=== PATIENT | female | born 1985 ===

== ENCOUNTER 2024-12-23 14:41 | Outpatient (BNV) | payer SELFPAY | END 2024-12-31 10:33 | PROVIDERS: Admitting Provider Psychiatry & Neurology Psychiatry; Visit Provider Internal Medicine Cardiovascular Disease | DX: Z13.6 Encounter for screening for cardiovascular disorders (principal) | CPT/HCPCS: 93010 ==

== ENCOUNTER 2024-12-23 14:41 | Inpatient (IN) | payer SELFPAY ==
--- OUTSIDE RECORDS SUMMARY | 2024-05-05 11:15 | XMS_ITS ---
Author Organization [facility] Address [address] [place] [phone] Care Team Providers Care Filter Tank Tender Helper Head Name Role Phone Zaria Pires MD Primary Care Provider Unavailab le nurse, nurse Unavailable Unavailable REASON FOR VISIT CONVERTED Encounters Encounter Location Date Provider Diagnosis [facility] [address] [phone] 05/05/2024 nurse nurse Plan Of Treatment Next Appt Details Provider Name:JUNI Mitchell, 01/12/2025 02:30:00 PM, [address] [place] [address], [place], [place], [phone], Progress Notes * Neli HELMSRayOB:1985 ( 39 yo F)Acc No.[id number]:05/05/2024 Progress Notes Patient: Boubacar DOVE Provider: Brittani manrique Nurse :1985 A ge:38 Y S ex:Female Date:05/05/2024 Address:[address], [place] Pcp:Zaria Pires MD Subjective: * Chief Complaints: * 1 . CONVERTED. * Medical History: Objective: * Vitals: Assessment: Plan: * Treatment: * Images: * Electronic signature of sheri sun nurse on 12/23/2024 at 06:37 PM EDT Sign off status: Pending * Provider: Brittani manrique Nurse Date: 0 05/05/2024 Generated for Faith tee/Antonio/Marisabel on: 1 06:37 PM EDT
--- OUTSIDE RECORDS SUMMARY | 2024-06-15 11:15 | XMS_ITS ---
Author Organization [facility] Address [address] [place] [phone] Care Team Providers Care Mold Capper Name Role Phone Zaria Pires MD Primary Care Provider Unavailab le nurse, nurse Unavailable Unavailable REASON FOR VISIT CONVERTED Encounters Encounter Location Date Provider Diagnosis [facility] [address] [phone] 06/15/2024 nurse nurse Plan Of Treatment Next Appt Details Provider Name:JUNI Mitchell, 01/12/2025 02:30:00 PM, [address] [place] [address], [place], [place], [phone], Progress Notes * Neli HELMSRayOB:1985 ( 39 yo F)Acc No.[id number]:06/15/2024 Progress Notes Patient: Boubacar DOVE Provider: Brittani manrique Nurse :1985 A ge:38 Y S ex:Female Date:06/15/2024 Address:[address], [place] Pcp:Zaria Pires MD Subjective: * Chief Complaints: * 1 . CONVERTED. * Medical History: Objective: * Vitals: Assessment: Plan: * Treatment: * Images: * Electronic signature of sheri sun nurse on 12/23/2024 at 06:36 PM EDT Sign off status: Pending * Provider: Brittani manrique Nurse Date: 0 06/15/2024 Generated for Faith tee/Antonio/Marisabel on: 1 06:36 PM EDT
--- OUTSIDE RECORDS SUMMARY | 2024-07-20 11:15 | XMS_ITS ---
Author Organization [facility] Address [address] [place] [phone] Care Team Providers Care Pouncer Name Role Phone Zaria Pires MD Primary Care Provider Unavailab le nurse, nurse Unavailable Unavailable REASON FOR VISIT CONVERTED Encounters Encounter Location Date Provider Diagnosis [facility] [address] [phone] 07/20/2024 nurse nurse Plan Of Treatment Next Appt Details Provider Name:JUNI Mitchell, 01/12/2025 02:30:00 PM, [address] [place] [address], [place], [place], [phone], Progress Notes * Neli HELMSRayOB:1985 ( 39 yo F)Acc No.[id number]:07/20/2024 Progress Notes Patient: Boubacar DOVE Provider: Brittani manrique Nurse :1985 A ge:38 Y S ex:Female Date:07/20/2024 Address:[address], [place] Pcp:Zaria Pires MD Subjective: * Chief Complaints: * 1 . CONVERTED. * Medical History: Objective: * Vitals: Assessment: Plan: * Treatment: * Images: * Electronic signature of sheri sun nurse on 12/23/2024 at 06:35 PM EDT Sign off status: Pending * Provider: Brittani manrique Nurse Date: 0 07/20/2024 Generated for Faith tee/Antonio/Marisabel on: 1 06:35 PM EDT
--- OUTSIDE RECORDS SUMMARY | 2024-07-26 06:30 | XMS_ITS ---
Author Organization [facility] [address] [place] [address] [address] Address [address] [place] [phone] Care Team Providers Care Family Development Extension Specialist Name Role Phone Pranay BASS, Zaria Primary Care Provider Unavailab remigio Calderon NP, Jessica Unavailable [phone] Nay [employer] HEAD INSPECTOR AND ADJUSTER, Rowena Unavailable Unavailable REASON FOR VISIT pt will cb to r/s Social History Sex Assigned At : Social History Observation Description Sex Assigned At Female Encounters Encounter Location Date Provider Diagnosis [facility] [address] [place] [address] [place] [phone] 07/26/2024 Jessica Calderon NP Plan Of Treatment Next Appt Details Provider Name:Jessica carpio NP, 01/11/2025 08:00:00 AM, [address] [place] [address], [phone], Progress Notes * YNES HELMS SCDOB: 7 (39 yo F)Acc No.[id number]:07/26/2024 Patient: KATHERIN DOVEN HI Provider: Nanci Calderon NP :1985 A ge:38 Y S ex:Female Date:07/26/2024 Address:[address] [place] [phone] Pcp:Zaria Pires MD Subjective: * Chief Complaints: * 1 . Pt will cb to r/s. * Medical History: Objective: * Vitals: Assessment: Plan: * Treatment: * Billing Information: * Visit Code: * Procedure Codes: * Electronic signature of Del Calderon NP , [id number] on 12/23/2024 at 06:35 PM EDT Sign off status: Pending * Provider: Nanci Calderon NP Date: 0 07/26/2024 Generated for Faith tee/Antonio/Marisabel on: 1 06:35 PM EDT
--- OUTSIDE RECORDS SUMMARY | 2024-10-13 10:45 | XMS_ITS ---
Author Organization [facility] Address [address] [place] [phone] Care Team Providers Care Foam Fabricator Name Role Phone Zaria Pires MD Primary Care Provider Unavailab le nurse, nurse Unavailable Unavailable REASON FOR VISIT CONVERTED Encounters Encounter Location Date Provider Diagnosis [facility] [address] [phone] 10/13/2024 nurse nurse Plan Of Treatment Next Appt Details Provider Name:JUNI Mitchell, 01/12/2025 02:30:00 PM, [address] [place] [address], [place], [place], [phone], Progress Notes * Neli HELMSRayOB:1985 ( 39 yo F)Acc No.[id number]:10/13/2024 Progress Notes Patient: Boubacar DOVE Provider: Brittani manrique Nurse :1985 A ge:39 Y S ex:Female Date:10/13/2024 Address:[address], [place] Pcp:Zaria Pires MD Subjective: * Chief Complaints: * 1 . CONVERTED. * Medical History: Objective: * Vitals: Assessment: Plan: * Treatment: * Images: * Electronic signature of sheri sun nurse on 12/23/2024 at 06:36 PM EDT Sign off status: Pending * Provider: Brittani manrique Nurse Date: 0 10/13/2024 Generated for Faith tee/Antonio/Marisabel on: 1 06:36 PM EDT
--- OUTSIDE RECORDS SUMMARY | 2024-12-22 18:11 | XMS_ITS | Encounter Summary ---
Author Organization [facility] ystem Address [address] [place] [address] Phone Care Team Providers Care Drawer In Dobby Loom Name Role Phone Zaria Pires MD Primary Care Provider [phone] Reason for Visit * Reason Comments Psychiatric Evaluation * Auth/Cert (Routine) Specialty Diagnoses / Procedures Referred By Contac t Referred To Contact Diagnoses Hallucinations Psychosis, unspecified psychosis type (CMS/HCC) Referral ID Status Reason Start Date Expiration Date Visits Re quested Visits Authorized [id number] 1 1 Encounter Details Date Type Department Care Team (Latest Contact Info) Description 12/22/2024 6:11 PM EDT - 12/23/2024 12:49 PM EDT Hospital Encounter [facility] - Emergency Department [address] [place] [address] Chcio Nova DO [address] [place], [place] [phone] Juanito Brown MD [address] [place], [place] [phone] Ambrosio Arreaga MD [address] [facility] [address] [place], [place] [phone] Hallucinations (Primary Dx); Encounter for medical screening examination; Psychosis, unspecified psychosis type (CMS/HCC) [F29]; Schizoaffective disorder, bipolar type (CMS/HCC) Discharge Disposition: Home with Behavioral Health Services Social History Tobacco Use Types Packs/Day Years Used Date Smoking Tobacco: Every Day Cigarettes Smokeless Tobacco: Never Comments Unknown Sex and Gender Information Value Date Recorded Sex Assigned at Female 09/06/2022 3:36 PM EDT Legal Sex Female 9:32 AM EDT Gender Identity Female 09/06/2022 3:36 PM EDT Sexual Orientation Lesbian 09/06/2022 3: 36 PM EDT documented as of this encounter Last Filed Vital Signs Vital Sign Reading Time Taken Comments Blood Pressure 135/83 12/23/2024 11:13 AM EDT Pulse 98 12/23/2024 11:13 AM EDT Temperature 37.1 C (98.8 F) 12/23/2024 11:13 AM EDT Respiratory Rate 16 12/23/2024 11:1 3 AM EDT Oxygen Saturation 99% 12/23/2024 10: 05 AM EDT Inhaled Oxygen Concentration - - Weight 122.9 kg (270 lb 14.4 oz) 12/22/2024 5:49 PM EDT Height - - Body Mass Index 38.87 06/29/2024 8:21 PM EDT documented in this encounter Functional Status * Are you deaf or do you have serious difficulty hearing? Answer Date of Assessment Author No 03/10/2024 5:59 PM EST Mychart, Generic * Are you blind or do you have serious difficulty seeing, even when wearing glasses? Answer Date of Assessment Author No 03/10/2024 5:59 PM EST Mychart, Generic * Do you have serious difficulty walking or climbing stairs? Answer Date of Assessment Author No 03/10/2024 5:59 PM EST Mychart, Generic * Do you have serious difficulty dressing or bathing? Answer Date of Assessment Author No 03/10/2024 5:59 PM EST Mychart, Generic * Because of a physical, mental, or emotional condition, do you have serious difficulty doing errandsalone such as visiting the doctor? Answer Date of Assessment Author No 03/10/2024 5:59 PM EST Mychart, Generic * Calculated C-SSRS Risk Score (Lifetime/Recent) Answer Date of Assessment Author Moderate Risk 12/22/2024 9:51 PM EDT Bessie Mckeon, MONIQUE * Suicidal Ideation Question Answer Date of Assessment Author 1. Wish to be (Lifetime) Yes 12/22/2024 9:51 PM EDT Bessie Mckeon, ACID BLOWER 2. Non-Specific Active Suicidal Thoughts (Lifetime) Yes 12/22/2024 9:51 PM EDT Bessie Mckeon, ACID BLOWER 3. Active Suicidal Ideation with any Methods (Not Plan) Without Intent to Act (Lifetime) Yes 12/22/2024 9:51 PM EDT Deandra Mckeon, ACID BLOWER 4. Active Suicidal Ideation with Some Intent to Act, Without Specific Plan (Lifetime) Yes 12/22/2024 9:51 PM EDT Deandra Mckeon, ACID BLOWER 5. Active Suicidal Ideation with Specific Plan and Intent (Lifetime) Yes 12/22/2024 9:51 PM EDT Deandra Mckeon, ACID BLOWER 1. Wish to be (Past 1 Month) No 12/22/2024 9:51 PM EDT Deandra Mckeon, ACID BLOWER 2. Non-Specific Active Suicidal Thoughts (Past 1 Month) No 12/22/2024 9:51 PM EDT Deandra Mckeon, ACID BLOWER 3. Active Suicidal Ideation with any Methods (Not Plan) Without Intent to Act (Past 1 Month) No 12/22/2024 9:51 PM EDT Deandra Mckeon, ACID BLOWER 4. Active Suicidal Ideation with Some Intent to Act, Without Specific Plan (Past 1 Month) No 12/22/2024 9:51 PM EDT Deandra Mckeon, ACID BLOWER 5. Active Suicidal Ideation with Specific Plan and Intent (Past 1 Month) No 12/22/2024 9:51 PM EDT Deandra Mckeon, ACID BLOWER * Intensity of Ideation Question Answer Date of Assessment Author Most Severe Ideation Rating (Lifetime) 5 12/22/2024 9:51 PM EDT Rafita Mckeonie, ACID BLOWER Frequency (Lifetime) 4 12/22/2024 9:51 PM E DT HitesheBessie, ACID BLOWER Duration (Lifetime) 5 12/22/2024 9:51 PM ED T Pinatye, Kristenandree, ACID BLOWER Controllability (Lifetime) 3 12/22/2024 9:5 1 PM EDT PinatyeRafitaie, ACID BLOWER Deterrents (Lifetime) 4 12/22/2024 9:51 PM EDT Pinatye, Kristenandree, ACID BLOWER Reasons for Ideation (Lifetime) 4 9:51 PM EDT PiBessie garibay, ACID BLOWER Description of Most Severe Ideation (Past 1 Month) denies SI 12/22/2024 9:51 PM EDT Pinatye, Krjimmyenshajiie, ACID BLOWER Deterrents (Past 1 Month) 0 12/22/2024 9:51 PM EDT PinatyeBessie, ACID BLOWER Reasons for Ideation (Past 1 Month) 0 12/22/2024 9:51 PM EDT PiBessie garibay, ACID BLOWER * Suicidal Behavior Question Answer Date of Assessment Author Actual Attempt (Lifetime) Yes 12/22/2024 9:51 PM EDT Bessie Mckeon, ACID BLOWER Has subject engaged in non-suicidal self-injurious behavior? (Lifetime) Yes 12/22/2024 9:51 PM EDT Bo Mckeone, ACID BLOWER Interrupted Attempts (Lifetime) No 12/22/2024 9:51 PM EDT Deandra Mckeon, ACID BLOWER Aborted or Self-Interrupted Attempt (Lifetime) No 12/22/2024 9:51 PM EDT Deandra Mckeon, ACID BLOWER Preparatory Acts or Behavior (Lifetime) No 12/22/2024 9:51 PM EDT HitesheDeandra, ACID BLOWER Actual Attempt (Past 3 Months) No 12/22/2024 9:51 PM EDT Bessie Mckeon, ACID BLOWER Has subject engaged in non-suicidal self-injurious behavior? (Past 3 Months) No 12/22/2024 9:51 PM EDT Ángel Mckeon MSW documented as of this encounter Mental Status * Because of a physical, mental, or emotional condition, do you have serious difficulty concentrating, remembering, or making decisions? Answer Entry Date Author No 03/10/2024 5:59 PM EST Beant, Generic documented in this encounter Discharge Summaries * Paulina Moncada CNP - 12/23/2024 11:49 AM EDT Psychiatric Observation Discharge Summary Patient Name: Ynes Marvin Date of : 1985 Date of Service: 12/23/2024 Length of Service: 12/22/2024 - 12/23/2024 Final Diagnoses: Problem List[1] CURRENT DIAGNOSIS: Schizoaffective Disorder Problem List[2] REASON FOR ADMISSION TO [facility]: Schizoaffective disorder HOSPITAL COURSE Admitted to Psychiatric Observation Service for management of schizoaffective disorder Continued home medications Limited improvement in symptoms Psychosis continued throughout hospitalization continue to recommend inpatient psychiatric placement, Joyce has found placement at [facility] where patient will be transferred to for ongoing care. DISCHARGE MEDICATIONS Current Medications[3] MENTAL STATUS UPON DISCHARGE Physical Exam: Musculoskeletal: moves all extremities; no abnormal movements Gait: gait not assessed EPS: none MSE: Appearance: well groomed and appropriately dressed Behavior: cooperative, eye contact good, and pleasant Psychomotor Activity: normal Speech: regular rate, regular rhythm, and regular volume Mood: neutral Affect: flat Thought Process: linear Thought Content: no delusions and no obsessions Suicidal Ideation: no suicidal ideation Homicidal Ideation: no homicidal ideation Perceptions/Experiences: auditory hallucinations Insight: limited Judgement: limited Cognitive Exam: Orientation: oriented X3 and alert Memory: intact Attention/Concentration: fair Fund of Knowledge: average Language: fluent Capacity: Cannot leave AMA Health Care Proxy: not invoked ROS Constitutional: No fever, no weight loss Musculoskeletal: NO EPS Positive: auditory hallucinations Negative for: headache, sore throat, chest pain, dizziness, blurred vision, fatigue, joint pain, constipation, skin itchiness, dysuria, cough, SOB, vomiting, diarrhea, nausea, abdominal pain. CONDITION AT DISCHARGE Continues with psychosis Impaired insight/judgement at risk of harming self or others DISPOSITION Requires Psychiatric Inpatient level of Care POST-DISCHARGE PLAN: Admit to [facility] Accepting Physician - Dr. 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), inattentive type Psychosis, unspecified psychosis type (CMS/HCC) [3] Current Facility-Administered Medications: nortriptyline (PAMELOR) capsule 100 mg, 100 mg, Oral, Nightly, Dunia De La Cruz CNP, 100 mg at 12/22/242110 spironolactone (ALDACTONE) tablet 100 mg, 100 mg, Oral, Daily, Dunia De La Cruz CNP, 100 mg at 12/23/24834 cloNIDine (CATAPRES) tablet 0.1 mg, 0.1 mg, Oral, TID, Dunia De La Cruz CNP, 0.1 mg at 12/23/24834 gabapentin (NEURONTIN) capsule 400 mg, 400 mg, Oral, TID, Dunia De La Cruz CNP, 400 mg at 12/23/24834 doxepin (SINEquan) capsule 25 mg, 25 mg, Oral, Nightly, Dunia De La Cruz CNP, 25 mg at 12/22/242109 haloperidol (HALDOL) tablet 5 mg, 5 mg, Oral, TID, Dunia De La Cruz CNP, 5 mg at 12/23/24834 perphenazine tablet 16 mg, 16 mg, Oral, BID, Dunia De La Cruz CNP, 16 mg at 12/23/24834 clonazePAM (KlonoPIN) tablet 1 mg, 1 mg, Oral, BID PRN, Dunia De La Cruz CNP melatonin tablet 3 mg, 3 mg, Oral, Nightly PRN, Dunia De La Cruz CNP OLANZapine (ZYPREXA) tablet 5 mg, 5 mg, Oral, q6h PRN, Dunia De La Cruz CNP Current Outpatient Medications: hydrOXYzine (VISTARIL) 50 MG capsule, Take 50 mg by mouth three times a day as needed, Disp: , Rfl: clonazePAM (KlonoPIN) 1 MG tablet, Take 1 mg by mouth two times a day as needed for anxiety, Disp: , Rfl: doxepin (SINEquan) 25 MG capsule, Take 25 mg by mouth nightly, Disp: , Rfl: haloperidol (HALDOL) 5 MG tablet, Take 5 mg by mouth three times a day, Disp: , Rfl: perphenazine 16 MG tablet, Take 16 mg by mouth two times a day, Disp: , Rfl: cloNIDine (CATAPRES) 0.1 MG tablet, Take 0.1 mg by mouth three times a day, Disp: , Rfl: gabapentin (NEURONTIN) 400 MG capsule, Take 400 mg by mouth three times a day, Disp: , Rfl: levocetirizine (XYZAL) 5 MG tablet, Take 10 mg by mouth every evening, Disp: , Rfl: nortriptyline (PAMELOR) 50 MG capsule, Take 100 mg by mouth nightly, Disp: , Rfl: spironolactone (ALDACTONE) 100 MG tablet, Take 100 mg by mouth daily, Disp: , Rfl: perphenazine 8 MG tablet, Take 8 mg by mouth, Disp: , Rfl: lamoTRIgine (LaMICtal) 25 MG tablet, Take 50 mg by mouth daily, Disp: , Rfl: perphenazine 4 MG tablet, Take 4 mg by mouth two times a day, Disp: , Rfl: lamoTRIgine (LaMICtal) 200 MG tablet, Take 200 mg by mouth nightly, Disp: , Rfl: fremanezumab-vfrm (AJOVY) 225 MG/1.5ML solution prefilled syringe injection, Inject 225 mg under the skin, Disp: , Rfl: documented in this encounter Discharge Instructions * Discharge Instructions* Chico Nova, - 12/22/2024 6:52 PM EDT <<THIS PATIENT IS ON ED OBSERVATION. IF DISCHARGED SELECT DISCHARGE FROM OBSERVATION OPTIONBELOW AND DELETE THIS TEXT>> documented in this encounter Medications at Time of Discharge perphenazine 8 MG tablet Take 8 mg by mouth clonazePAM (KlonoPIN) 1 MG tablet Take 1 mg by mouth two times a day as needed for anxiety doxepin (SINEquan) 25 MG capsule Take 25 mg by mouth nightly 04/02/2024 haloperidol (HALDOL) 5 MG tablet Take 5 mg by mouth three times a day 04/02/2024 perphenazine 16 MG tablet Take 16 mg by mouth two times a day perphenazine 4 MG tablet Take 4 mg by mouth two times a day cloNIDine (CATAPRES) 0.1 MG tablet Take 0.1 mg by mouth three times a day 03/04/2024 gabapentin (NEURONTIN) 400 MG capsule Take 400 mg by mouth three times a day nortriptyline (PAMELOR) 50 MG capsule Take 100 mg by mouth nightly 03/15/2020 spironolactone (ALDACTONE) 100 MG tablet Take 100 mg by mouth daily 08/15/2021 fremanezumab-vfrm (AJOVY) 225 MG/1.5ML solution prefilled syringe injection Inject 225 mg under the skin 12/13/2020 documented as of this encounter Progress Notes * Paulina Moncada CNP - 12/23/2024 7:30 AM EDT PSYCH OBSERVATION PROGRESS NOTE Patient Name: Ynes Marvin Date of : 1985 Date of Service: 12/23/2024 Time of Service: 7:30 AM Time spent: 32 minutes CURRENT DIAGNOSIS Schizoaffective Disorder Bipolar Type CC: I have my usual voice and others that are yelling. Brief history: The patient is a 39 y.o. female with a psychiatric history of charted schizoaffective disorder, cannabis use disorder, PTSD who presented on 12/22/2024 to the Emergency Department withworsening auditory and visual hallucinations. At this time Nicholase are involved in the treatment planning for this patient. To review on interview patient was calm and cooperative, thought process was linear and organized, and did not appear to be responding to internal stimuli. She reports that within this last week she lost her job insurance and was previously on long-term disability, and since switching insurances the cost is very expensive. She notes that this insurance switch has limited her contact with her providers and increasing her stress. She reports worsening visual hallucinations of people killing each other as well as garbled auditory hallucinations. She notes that 1 voice chronically has told her tocut herself but she is scaled at coping with this voice and not engaging in self-harm. Reports the last time she cut herself was in May which spear headed and inpatient admission at [facility], reports during this last decompensation, she was having command auditory hallucinations to kill other people. She denies present self-harm urges, suicidal ideation, nor thoughts to harm others, but reports her largest stressor is the disturbing visual hallucinations that are causing her to feel more paranoid. She concomitantly expresses worsening depressive symptoms including pervasive low mood, hypersomnia, hypophagia, and worsening fatigue throughout the day. She reports her last suicide attempt was at age 19 and has been able to use coping skills to maintain safety. She states she met with her outpatient therapist today, and in the setting of feeling worsening perceptual disturbances, decided she would get an emergency eval and prepare for inpatient hospitalization to evaluate med changesthat may help. She endorses daily cannabis use, smoking several times daily, reports this helps with perceptual disturbances and does not contribute negatively to her paranoia. She endorses daily medication adherence. 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 Expressed amenability to inpatient hospitalization for stabilization. Would like to resumehome meds while in the ED. 12/23/2024 The patient is seen laying in bed this morning. They are calm cooperative and pleasant. Patient reports sleeping okay last night. Patient denies current suicidal or homicidal ideation, although does report presence of auditory hallucinations. Describes hearing the voice they have had since March that tells patient to cut themself as well as other voices yelling. Patient denies wanting to act onthese thoughts currently. Advised of ongoing inpatient psychiatric bed search. The patient reports tolerating her psychiatric medications well denying any EPS or oversedation. Plan to continue to monitor patient psychiatric treatment needs while pending placement. CURRENT MEDICATIONS: Current Medications[1] CURRENT LABS: Recent Results (from the past 24 hours) Urine drugs of abuse screen Collection Time: 12/22/24 6:40 PM Result Value Ref Range Amphetamines, Urine Screen None Detected None Detected Barbiturates, Urine Screen None Detected None Detected Benzodiazepines, Urine Screen Positive (A) None Detected Cocaine, Urine Screen None Detected None Detected Opiates, Urine Screen None Detected None Detected Cannabinoids (THC), Urine Screen Positive (A) None Detected Tricyclic Antidepressants, Urine Screen Positive (A) None Detected Fentanyl, Urine Screen None Detected None Detected Methadone, Urine Screen None Detected None Detected Oxycodone, Urine Screen None Detected None Detected Buprenorphine, Urine Screen None Detected None Detected Phencyclidine, Urine Screen None Detected None Detected COVID-19 ([facility]) Collection Time: 12/22/24 6:41 PM Specimen: Nasopharynx; Swab Result Value Ref Range COVID-19 ([facility]) PCR Negative Negative Acetaminophen level Collection Time: 12/22/24 6:45 PM Result Value Ref Range Acetaminophen Level <5.1 <15.0 ug/mL CBC with auto differential Collection Time: 12/22/24 6:45 PM Result Value Ref Range WBC 15.5 (H) 4.5 - 10.8 10*3 ??l RBC 4.51 4.20 - 5.40 10*6 ??l Hemoglobin 15.0 12.0 - 16.0 g/dL Hematocrit 44.0 36.0 - 48.0 % MCV 98 81 - 99 fL MCH 33.3 25.4 - 39.0 pg MCHC 34.1 31.0 - 37.0 g/dL RDW 12.7 11.5 - 14.5 % Platelets 332 150 - 450 10*3 ??l MPV 8.6 7.0 - 11.0 fL Neutrophils % 72.1 40.0 - 80.0 % Lymphocytes % 20.1 20.0 - 40.0 % Monocytes % 6.4 2.0 - 10.0 % Eosinophils % 0.6 (L) 1.0 - 6.0 % Basophils % 0.2 0.0 - 1.0 % Immature Granulocyte % 0.6 0.0 - 0.9 % Neutrophils Absolute 11.20 (H) 2.00 - 7.00 K/mm3 Absolute Immature Granulocyte 0.09 0.00 - 0.09 K/mm3 Lymphocytes Absolute 3.12 (H) 1.00 - 3.00 K/mm3 Monocytes Absolute 1.00 0.20 - 1.00 K/mm3 Eosinophils Absolute 0.09 0.00 - 0.50 K/mm3 Basophils Absolute 0.03 0.00 - 0.10 K/mm3 Comprehensive metabolic panel Collection Time: 12/22/24 6:45 PM Result Value Ref Range Glucose 104 (H) 70 - 100 mg/dL BUN 7 6 - 19 mg/dL Creatinine 1.0 0.4 - 1.2 mg/dL eGFR >60.00 >60.00 mL/min/1.73m*2 Sodium 137 135 - 145 mmol/L Potassium 3.9 3.4 - 5.1 mmol/L Chloride 99 98 - 109 mmol/L CO2 23 22 - 29 mmol/L Anion Gap 15 6 - 16 mmol/L Calcium 8.9 8.5 - 10.5 mg/dL Total Bilirubin 0.2 0.2 - 1.2 mg/dL Alkaline Phosphatase 51 35 - 104 U/L ALT (SGPT) 40 (H) 0 - 31 U/L AST 22 0 - 32 U/L Total Protein 7.5 6.0 - 8.5 g/dL Albumin 4.0 3.3 - 5.2 g/dL Corrected Calcium 8.9 8.5 - 10.5 mg/dL Estimated Creatinine Clearance 108.7 mL/min Ethanol Collection Time: 12/22/24 6:45 PM Result Value Ref Range Ethanol <=10 0 - 10 mg/dL Salicylate level Collection Time: 12/22/24 6:45 PM Result Value Ref Range Salicylate Level <=3.0 3.0 - 30.0 mg/dL Valproic Acid Level, Total Collection Time: 12/22/24 6:45 PM Result Value Ref Range Valproic Acid, Total 47 (L) 50 - 100 ug/mL CURRENT MENTAL STATUS Physical Exam: Musculoskeletal: moves all extremities; no abnormal movements Gait: gait not assessed EPS: none MSE: Appearance: well groomed and appropriately dressed Behavior: cooperative, eye contact good, and pleasant Psychomotor Activity: normal Speech: regular rate, regular rhythm, and regular volume Mood: neutral Affect: flat Thought Process: linear Thought Content: no delusions and no obsessions Suicidal Ideation: no suicidal ideation Homicidal Ideation: no homicidal ideation Perceptions/Experiences: auditory hallucinations Insight: limited Judgement: limited Cognitive Exam: Orientation: oriented X3 and alert Memory: intact Attention/Concentration: fair Fund of Knowledge: average Language: fluent Capacity: Cannot leave AMA Health Care Proxy: not invoked ROS Constitutional: No fever, no weight loss Musculoskeletal: NO EPS Positive: auditory hallucinations Negative for: headache, sore throat, chest pain, dizziness, blurred vision, fatigue, joint pain, constipation, skin itchiness, dysuria, cough, SOB, vomiting, diarrhea, nausea, abdominal pain. TREATMENT RE-ASSESSMENT Reassessment demonstrates ongoing reports of auditory hallucinations although patient denies presence of suicidal or homicidal ideation at this time. The patient reports tolerating medications without EPS or oversedation. PRN medications used with positive response. Will continue to monitor ongoingpatient treatment needs. PLAN Continue with Psychiatric Observation admission Continue current medications Cariprazine 3 mg daily Clonazepam 1 mg twice daily Clonidine 0.1 mg 3 times a day as needed Depakote ER 750 mg nightly Gabapentin 400 mg 3 times daily Doxepin 25 mg nightly Haldol 5 mg 3 times daily Hydroxyzine 50 mg nightly Nortriptyline 100 mg nightly Perphenazine 16 mg twice a day HOLD Adderall PRN's: Hydroxyzine 25 mg 3 times a day as needed Contact family and outpatient providers as needed for treatment and disposition planning Paulina Moncada CNP 12/23/2024 7:30 AM [1] Current Facility-Administered Medications: nortriptyline (PAMELOR) capsule 100 mg, 100 mg, Oral, Nightly, Dunia De La Cruz CNP, 100 mg at 12/22/242110 spironolactone (ALDACTONE) tablet 100 mg, 100 mg, Oral, Daily, Dunia De La Cruz CNP cloNIDine (CATAPRES) tablet 0.1 mg, 0.1 mg, Oral, TID, Dunia De La Cruz CNP, 0.1 mg at 12/22/242110 gabapentin (NEURONTIN) capsule 400 mg, 400 mg, Oral, TID, Dunia De La Cruz CNP, 400 mg at 12/22/242109 doxepin (SINEquan) capsule 25 mg, 25 mg, Oral, Nightly, Dunia De La Cruz CNP, 25 mg at 12/22/242109 haloperidol (HALDOL) tablet 5 mg, 5 mg, Oral, TID, Dunia De La Cruz CNP, 5 mg at 12/22/242110 perphenazine tablet 16 mg, 16 mg, Oral, BID, Dunia De La Cruz CNP, 16 mg at 12/22/242110 clonazePAM (KlonoPIN) tablet 1 mg, 1 mg, Oral, BID PRN, Dunia De La Cruz CNP melatonin tablet 3 mg, 3 mg, Oral, Nightly PRN, Dunia De La Cruz CNP OLANZapine (ZYPREXA) tablet 5 mg, 5 mg, Oral, q6h PRN, Dunia De La Cruz CNP Current Outpatient Medications: hydrOXYzine (VISTARIL) 50 MG capsule, Take 50 mg by mouth three times a day as needed, Disp: , Rfl: clonazePAM (KlonoPIN) 1 MG tablet, Take 1 mg by mouth two times a day as needed for anxiety, Disp: , Rfl: doxepin (SINEquan) 25 MG capsule, Take 25 mg by mouth nightly, Disp: , Rfl: haloperidol (HALDOL) 5 MG tablet, Take 5 mg by mouth three times a day, Disp: , Rfl: perphenazine 16 MG tablet, Take 16 mg by mouth two times a day, Disp: , Rfl: cloNIDine (CATAPRES) 0.1 MG tablet, Take 0.1 mg by mouth three times a day, Disp: , Rfl: gabapentin (NEURONTIN) 400 MG capsule, Take 400 mg by mouth three times a day, Disp: , Rfl: levocetirizine (XYZAL) 5 MG tablet, Take 10 mg by mouth every evening, Disp: , Rfl: nortriptyline (PAMELOR) 50 MG capsule, Take 100 mg by mouth nightly, Disp: , Rfl: spironolactone (ALDACTONE) 100 MG tablet, Take 100 mg by mouth daily, Disp: , Rfl: perphenazine 8 MG tablet, Take 8 mg by mouth, Disp: , Rfl: lamoTRIgine (LaMICtal) 25 MG tablet, Take 50 mg by mouth daily, Disp: , Rfl: perphenazine 4 MG tablet, Take 4 mg by mouth two times a day, Disp: , Rfl: lamoTRIgine (LaMICtal) 200 MG tablet, Take 200 mg by mouth nightly, Disp: , Rfl: fremanezumab-vfrm (AJOVY) 225 MG/1.5ML solution prefilled syringe injection, Inject 225 mg under the skin, Disp: , Rfl: documented in this encounter H&P Notes * Duina De La Cruz CNP - 12/22/2024 7:40 PM EDT PSYCHIATRIC OBSERVATION ADMISSION H&P REASON FOR CONSULT A psychiatric consult was placed by Dr. Nova for evaluation of a patient with worsening perceptual disturbances and paranoia. The patient's record was reviewed, patient was interviewed, and clinical staff were consulted to complete this comprehensive psychiatric consultation. Patient Name: Ynes Marvin Date of : 1985 Date of Service: 12/22/2024 Time of Service: 7:40 PM Length of Service: 75 minutes Source of information: Patient, Family, Staff collateral CHIEF COMPLAINT: My visual hallucinations have gotten gorey and very disturbing. HISTORY OF PRESENT ILLNESS The patient is a 39 y.o. female with a psychiatric history of charted schizoaffective disorder, cannabis use disorder, PTSD who presented on 12/22/2024 to the Emergency Department with worsening auditory and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 If yes, please explain: Was a Safety Plan completed or updated during the course of this intervention? (R) No If no, please explain: unable to safety plan due to worsening hallucinations. Diagnosis Type Mental Health Only (R): Yes Substance Use Disorder Only (R): No Dual Diagnosis (R): No Comments: Is this person diagnosed with Autism Spectrum Disorder? (R): No Was a Doc to Doc performed? (R): No Was this an Opiod overdose? (R): No Is this a SUDE (Substance Use Disorder Evaluation)? No Was there an SHANTA Peer or FP participating in the intervention? (R): No Who initiated FP intervention? (R): Identified Needs and Goals for Treatment Safety and stabilization 2. Outpatient treatment 3. Medication management Additional Recommendations Additional Recommendations: Outpatient Mental Health Provider and Partial Hospitalization If other, please explain: Disposition Details Information gathered from:Person Served, Hospital Staff, and Other If other, please explain: Medical Clearance Requested (R): Yes Medical Clearance Requested by (R): SHANTA/CBL If other, please explain: Medical Clearance Provided (R): Yes Medical Clearance Provided Where? (R): ED If other, please explain: Clinical Consult done with: Isi DOW Current Safety Assessment: Unable to plan for safety If other, please explain: Inital Disposition: Inpatient Psychiatric General For Acute Care Time (R): Psychiatric Consult Began Date (R): Time (R): Psychiatric Intervention Began Date (R): Time (R): Intervention Began Time (R) Telehealth: NA Diagnosis: F29 unspecified psychosis Consult Note [1] Allergies Allergen Reactions Sulfa Antibiotics Hives, Swelling and Other (see comments) Avocado Azithromycin Banana Other (see comments) Other reaction(s): Other (See Comments) Celexa [Citalopram] Clindamycin Kiwi Extract Itching Latex Metronidazole Other reaction(s): stiff neck (aseptic meningitis) Nickel Tylenol [Acetaminophen] Wild Lettuce Extract (Lactuca Virosa) Diarrhea Sulfasalazine Rash hives hives hives [2] Social History Tobacco Use Smoking status: Every Day Current packs/day: 1.00 Types: Cigarettes Smokeless tobacco: Never Vaping Use Vaping status: Never Used Cosigned by Marleny Ruiz MS at 12/23/2024 9:19 AM EDT documented in this encounter ED Notes * Chico Nova, - 12/22/2024 6:50 PM EDT EMERGENCY DEPARTMENT ENCOUNTER CHIEF COMPLAINT Chief Complaint Patient presents with Psychiatric Evaluation HPI Ynes Marvin is a 39 y.o. female who presents on 12/22/2024 6:11 PM for evaluation of hallucinations. HPI provided by patient, states that she has a history of schizoaffective, chronic loose nationsare been more bothersome as of late. She states that she has been compliant with her medication regimen. Denies any drug or alcohol use outside of cannabis. Otherwise no recent illness or somatic complaints. States that she is not homicidal or suicidal. She is seeking inpatient stabilization. PAST MEDICAL HISTORY Past Medical History: Diagnosis Date Bipolar 1 disorder ([facility]) Schizo affective schizophrenia ([facility]) Schizophrenia, paranoid ([facility]) 03/10/2024 Schizophrenia, unspecified ([facility]) 06/26/2023 SURGICAL HISTORY Surgical History[1] CURRENT MEDICATIONS Medications Ordered Prior to Encounter[2] ALLERGIES Allergies[3] FAMILY HISTORY No family history on file. SOCIAL HISTORY Social History[4] REVIEW OF SYSTEMS All other systems reviewed and negative except as per history of present illness. PHYSICAL EXAM Vital Signs: BP 119/72 (BP Location: Left arm, Patient Position: Sitting) Pulse (!) 119 Temp 97.5 ??F (36.4 ??C) (Temporal) Resp 20 Wt 122.9 kg (270 lb 14.4 oz) SpO2 97% BMI 38.87 kg/m?? Constitutional: no painful distress HENT: Normocephalic, Atraumatic, Bilateral external ears normal, Oropharynx moist. Neck: No tenderness, No JVD. Eyes: PERRL, EOMI, Conjunctiva normal Respiratory: No respiratory distress, LCTAB Cardiovascular: Normal heart rate, regular rhythm Abdominal: Soft,no tenderness Musculoskeletal: No edema, No deformities noted. Distal pulses 2+ Skin: Warm, Dry, No rash. Lymphatic: No lymphadenopathy noted. Neurological: Alert & awake, No focal deficits noted, Gait: Steady Psychiatric: Appropriate for situation, age and time LABS: Recent Results (from the past 24 hours) Acetaminophen level Collection Time: 12/22/24 6:45 PM Result Value Ref Range Acetaminophen Level <5.1 <15.0 ug/mL CBC with auto differential Collection Time: 12/22/24 6:45 PM Result Value Ref Range WBC 15.5 (H) 4.5 - 10.8 10*3 ??l RBC 4.51 4.20 - 5.40 10*6 ??l Hemoglobin 15.0 12.0 - 16.0 g/dL Hematocrit 44.0 36.0 - 48.0 % MCV 98 81 - 99 fL MCH 33.3 25.4 - 39.0 pg MCHC 34.1 31.0 - 37.0 g/dL RDW 12.7 11.5 - 14.5 % Platelets 332 150 - 450 10*3 ??l MPV 8.6 7.0 - 11.0 fL Neutrophils % 72.1 40.0 - 80.0 % Lymphocytes % 20.1 20.0 - 40.0 % Monocytes % 6.4 2.0 - 10.0 % Eosinophils % 0.6 (L) 1.0 - 6.0 % Basophils % 0.2 0.0 - 1.0 % Immature Granulocyte % 0.6 0.0 - 0.9 % Neutrophils Absolute 11.20 (H) 2.00 - 7.00 K/mm3 Absolute Immature Granulocyte 0.09 0.00 - 0.09 K/mm3 Lymphocytes Absolute 3.12 (H) 1.00 - 3.00 K/mm3 Monocytes Absolute 1.00 0.20 - 1.00 K/mm3 Eosinophils Absolute 0.09 0.00 - 0.50 K/mm3 Basophils Absolute 0.03 0.00 - 0.10 K/mm3 Comprehensive metabolic panel Collection Time: 12/22/24 6:45 PM Result Value Ref Range Glucose 104 (H) 70 - 100 mg/dL BUN 7 6 - 19 mg/dL Creatinine 1.0 0.4 - 1.2 mg/dL eGFR >60.00 >60.00 mL/min/1.73m*2 Sodium 137 135 - 145 mmol/L Potassium 3.9 3.4 - 5.1 mmol/L Chloride 99 98 - 109 mmol/L CO2 23 22 - 29 mmol/L Anion Gap 15 6 - 16 mmol/L Calcium 8.9 8.5 - 10.5 mg/dL Total Bilirubin 0.2 0.2 - 1.2 mg/dL Alkaline Phosphatase 51 35 - 104 U/L ALT (SGPT) 40 (H) 0 - 31 U/L AST 22 0 - 32 U/L Total Protein 7.5 6.0 - 8.5 g/dL Albumin 4.0 3.3 - 5.2 g/dL Corrected Calcium 8.9 8.5 - 10.5 mg/dL Estimated Creatinine Clearance 108.7 mL/min Ethanol Collection Time: 12/22/24 6:45 PM Result Value Ref Range Ethanol <=10 0 - 10 mg/dL Salicylate level Collection Time: 12/22/24 6:45 PM Result Value Ref Range Salicylate Level <=3.0 3.0 - 30.0 mg/dL Valproic Acid Level, Total Collection Time: 12/22/24 6:45 PM Result Value Ref Range Valproic Acid, Total 47 (L) 50 - 100 ug/mL ED COURSE & MEDICAL DECISION MAKING Ynes Marvin is a 39 y.o. female who presents to the ED with worsening hallucinations, acute on chronic. ED and nursing records reviewed. Additional pertinent available records reviewed: Last seen 06/29/2024 secondary to paranoid delusion. On initial presentation exam notable for cooperative, atraumatic Differential includes but not limited to decompensated thought and/or mood disorder, intoxication, withdrawal syndrome, occult infection, electrolyte abnormalities. Initial plan for lab work, urinalysis, evening medications, crisis team eval and reassess. This patient is escalated to observation status on Service Date: 12/22/2024 at Service Time: 6:51 PM . Observation is necessary for ongoing evaluation of hallucinations. Discussion of management with physician, qualified health professional, and/or appropriate source: [facility] Escalation of care to admission or observation considered: Although not medically indicated Consideration of treatments or testing, not performed: None Chronic Conditions affecting care include: As above Social Determinants of Health significantly affecting the care and disposition of this patient include: None Lab work reassuring, signed out to my colleague at change of shift pending crisis team eval.n Basedon my history and exam, patient has an emergency psychiatric condition that requires care coordination by crisis team for potential inpatient level of care. Patient is pending mental health evaluation at the time of this dictation and their history, diagnostics and physical exam demonstrate that they are medically stable for psychiatric confinement if needed. FINAL IMPRESSION 1. Hallucinations 2. Encounter for medical screening examination DISPOSITION Pending crisis team eval CONDITION Stable Electronically signed by: CHICO NOVA DO, 12/22/2024 6:50 PM This Emergency Department patient encounter note was created using voice- recognition software and in real time during the ED visit. Please excuse any typographical errors that have not been edited out. Note to patient: The 21st century cures act makes medical notes like these available to patients inthe interest of transparency. However, be advised this is a medical document. It is intended primarily as [id number] communication. It is written in medical language and may contain abbreviations or verbiage that are unfamiliar. It may appear blunt or direct. This is because medical documents areintended to carry relevant information, facts as evident, and the clinical opinion of the practitioner only as of the time of writing. [1] No past surgical history on file. [2] No current facility-administered medications on file prior to encounter. Current Outpatient Medications on File Prior to Encounter Medication Sig Dispense Refill hydrOXYzine (VISTARIL) 50 MG capsule Take 50 mg by mouth three times a day as needed perphenazine 8 MG tablet Take 8 mg by mouth clonazePAM (KlonoPIN) 1 MG tablet Take 1 mg by mouth daily as needed for anxiety doxepin (SINEquan) 25 MG capsule Take 25 mg by mouth nightly haloperidol (HALDOL) 5 MG tablet Take 1 tablet by mouth daily as needed lamoTRIgine (LaMICtal) 25 MG tablet Take 50 mg by mouth daily perphenazine 16 MG tablet Take 16 mg by mouth two times a day perphenazine 4 MG tablet Take 4 mg by mouth two times a day cloNIDine (CATAPRES) 0.1 MG tablet Take 0.1 mg by mouth three times a day gabapentin (NEURONTIN) 400 MG capsule Take 400 mg by mouth three times a day lamoTRIgine (LaMICtal) 200 MG tablet Take 200 mg by mouth nightly levocetirizine (XYZAL) 5 MG tablet Take 10 mg by mouth every evening nortriptyline (PAMELOR) 50 MG capsule Take 100 mg by mouth nightly spironolactone (ALDACTONE) 100 MG tablet Take 100 mg by mouth daily fremanezumab-vfrm (AJOVY) 225 MG/1.5ML solution prefilled syringe injection Inject 225 mg under theskin [3] Allergies Allergen Reactions Sulfa Antibiotics Hives, Swelling and Other (see comments) Avocado Azithromycin Banana Other (see comments) Other reaction(s): Other (See Comments) Celexa [Citalopram] Clindamycin Kiwi Extract Itching Latex Metronidazole Other reaction(s): stiff neck (aseptic meningitis) Nickel Tylenol [Acetaminophen] Wild Lettuce Extract (Lactuca Virosa) Diarrhea Sulfasalazine Rash hives hives hives [4] Social History Socioeconomic History Marital status: Tobacco Use Smoking status: Every Day Current packs/day: 1.00 Types: Cigarettes Smokeless tobacco: Never Vaping Use Vaping status: Never Used Substance and Sexual Activity Sexual activity: Defer Social Drivers of Health Food Insecurity: Low Risk (10/07/2023) Received from [employer] Food Insecurity Within the past 12 months, you worried that your food would run out before you got money to buy more:: Never True Within the past 12 months,the food you bought just didn't last and you didn't have enough money to get more: : Never True Transportation Needs: Low Risk (10/07/2023) Received from [employer] Transportation In the past 12 months, has lack of transportation kept you from medical appts, meetings, work or from getting things needed for daily living? : No Housing Stability: Low Risk (10/07/2023) Received from [employer] Housing Stability What is your housing situation today?: I have housing Think about the place you live. Do you have problems with any of the following? : None of the above Chico Nova DO 12/22/241922 * Jeniffer Wiley RN - 12/22/2024 5:50 PM EDT Ynes Marvin is a 39 y.o. female presenting with Psychiatric Evaluation Pt is schizophrenic and states she is hearing voices and seeing things, denies SI/HI documented in this encounter Miscellaneous Notes * Behavioral Health - Monica Etienne MSW - 12/23/2024 10:17 AM EDT Accepted to [facility] [address] * Behavioral Health - Bessie Mckeon MSW - 12/22/2024 8:22 PM EDT Pt asked to be referred to [facility] if possible as has gone there in the past. If a bed can not be found there she also asked for [facility]. Pt is aware of the bed search process but, didrequest no HBM. documented in this encounter Plan of Treatment Pending Results Name Type Priority Associated Diagnoses Date /Time ECG x1 ECG STAT 12/23/2024 8:5 7 AM EDT Scheduled Orders Name Type Priority Associated Diagnoses Orde r Schedule ECG ECG STAT Once for 1 Occ urrences starting 12/23/2024 until 12/23/2024 ECG ECG STAT Once for 1 Occ urrences starting 12/23/2024 until 12/23/2024 documented as of this encounter Procedures Procedure Name Priority Date/Time Associated Diagnosis Comments ECG 12-LEAD STAT 12/23/2024 8:57 AM EDT CBC WITH AUTO DIFFERENTIAL STAT 12/22/2024 6:45 PM EDT ETHANOL STAT 12/22/2024 6:45 PM EDT ACETAMINOPHEN LEVEL STAT 12/22/2024 6 :45 PM EDT SALICYLATE LEVEL STAT 12/22/2024 6:45 PM EDT VALPROIC ACID LEVEL, TOTAL STAT Add-on 12/22/2024 6:45 PM EDT COMPREHENSIVE METABOLIC PANEL STAT 12/22/2024 6:45 PM EDT COVID-19 ([facility]) STAT 12/22/2024 6:41 PM EDT URINE DRUGS OF ABUSE SCREEN STAT 12/22/2024 6:40 PM EDT documented in this encounter Results * (ABNORMAL) Valproic Acid Level, Total (12/22/2024 6:45 PM EDT) Valproic Acid, Total 47(L) 50 - 100 ug/mL 12/22/2024 7:19 PM EDT [facility] Blood Venous blood / Unknown Venipuncture / Unknown 12/22/2024 6:45 PM EDT 12/22/2024 6:51 PM EDT Chico Nova DO LAB BLOOD ORDERABLES Fi nal Result Performing Organization Address City/[facility]/ZIP Co de Phone Number [facility] [address] [place] [address], [place] [phone] * Salicylate level (12/22/2024 6:45 PM EDT) Salicylate Level <=3.0 3.0 - 30.0 mg/dL 12/22/2024 7:19 PM EDT [facility] Blood Venous blood / Unknown Venipuncture / Unknown 12/22/2024 6:45 PM EDT 12/22/2024 6:51 PM EDT Chico Nova DO LAB BLOOD ORDERABLES Fi nal Result Performing Organization Address [facility]/ZIP Co de Phone Number [facility] [address] [place] [address], [place] [phone] * Ethanol (12/22/2024 6:45 PM EDT) Ethanol <=10 0 - 10 mg/dL 12/22/2024 7:19 PM EDT [facility] Comment:NONE DETECTED: Resul t <10 should be interpreted as NONE DETECTED. Blood Venous blood / Unknown Venipuncture / Unknown 12/22/2024 6:45 PM EDT 12/22/2024 6:51 PM EDT us Chico Nova DO LAB BLOOD ORDERABLES Fi nal Result Performing Organization Address City/[facility]/ZIP Co de Phone Number [facility] [address] [place] [address], [place] [phone] * (ABNORMAL) Comprehensive metabolic panel (12/22/2024 6:45 PM EDT) Glucose 104(H) 70 - 100 mg/dL 12/22/2024 7:22 PM [facility] BUN 7 6 - 19 mg/dL 12/22/2024 7:22 PM [facility] Creatinine 1.0 0.4 - 1.2 mg/dL 12/22/2024 7:22 PM [facility] eGFR >60.00 >60.00 mL/min/1.7 3m*2 12/22/2024 7:22 PM [facility] Sodium 137 135 - 145 mmol/L 12/22/2024 7:22 PM [facility] Potassium 3.9 3.4 - 5.1 mmol/L 12/22/2024 7:22 PM [facility] Chloride 99 98 - 109 mmol/L 12/22/2024 7:22 PM [facility] CO2 23 22 - 29 mmol/L 12/22/2024 7:22 PM [facility] Anion Gap 15 6 - 16 mmol/L 12/22/2024 7:22 PM [facility] Calcium 8.9 8.5 - 10.5 mg/dL 12/22/2024 7:22 PM [facility] Total Bilirubin 0.2 0.2 - 1.2 mg/dL 12/22/2024 7:22 PM [facility] Alkaline Phosphatase 51 35 - 104 U/L 12/22/2024 7:22 PM [facility] ALT (SGPT) 40(H) 0 - 31 U/L 12/22/2024 7:22 PM [facility] AST 22 0 - 32 U/L 12/22/2024 7:22 PM [facility] Total Protein 7.5 6.0 - 8.5 g/dL 12/22/2024 7:22 PM [facility] Albumin 4.0 3.3 - 5.2 g/dL 12/22/2024 7:22 PM [facility] Corrected Calcium 8.9 8.5 - 10.5 mg/dL 12/22/2024 7:22 PM [facility] Estimated Creatinine Clearance 108.7 mL/min 12/22/2024 7:22 PM [facility] Blood Venous blood / Unknown Venipuncture / Unknown 12/22/2024 6:45 PM EDT 12/22/2024 6:51 PM EDT us Chico Nova DO LAB BLOOD ORDERABLES Fi nal Result [facility] [address] [place] [address], [place] [phone] * (ABNORMAL) CBC with auto differential (12/22/2024 6:45 PM EDT) WBC 15.5(H) 4.5 - 10.8 10*3 l 12/22/2024 6:59 PM EDT [facility] RBC 4.51 4.20 - 5.40 10*6 l 12/22/2024 6:59 PM EDT [facility] Hemoglobin 15.0 12.0 - 16.0 g/dL 12/22/2024 6:59 PM EDT [facility] Hematocrit 44.0 36.0 - 48.0 % 12/22/2024 6:59 PM EDT [facility] MCV 98 81 - 99 fL 12/22/2024 6:59 PM EDT [facility] MCH 33.3 25.4 - 39.0 pg 12/22/2024 6:59 PM EDT [facility] MCHC 34.1 31.0 - 37.0 g/dL 12/22/2024 6:59 PM EDT [facility] RDW 12.7 11.5 - 14.5 % 12/22/2024 6:59 PM EDT [facility] Platelets 332 150 - 450 10*3 l 12/22/2024 6:59 PM EDT [facility] MPV 8.6 7.0 - 11.0 fL 12/22/2024 6:59 PM EDT [facility] Neutrophils % 72.1 40.0 - 80.0 % 12/22/2024 6:59 PM EDT [facility] Lymphocytes % 20.1 20.0 - 40.0 % 12/22/2024 6:59 PM EDT [facility] Monocytes % 6.4 2.0 - 10.0 % 12/22/2024 6:59 PM EDT [facility] Eosinophils % 0.6(L) 1.0 - 6.0 % 12/22/2024 6:59 PM EDT [facility] Basophils % 0.2 0.0 - 1.0 % 12/22/2024 6:59 PM EDT [facility] Immature Granulocyte % 0.6 0.0 - 0.9 % 12/22/2024 6:59 PM EDT [facility] Neutrophils Absolute 11.20(H) 2.00 - 7.00 K/mm3 12/22/2024 6:59 PM EDT [facility] Absolute Immature Granulocyte 0.09 0.00 - 0.09 K/mm3 12/22/2024 6:59 PM EDT [facility] Lymphocytes Absolute 3.12(H) 1.00 - 3.00 K/mm3 12/22/2024 6:59 PM EDT [facility] Monocytes Absolute 1.00 0.20 - 1.00 K/mm3 12/22/2024 6:59 PM EDT [facility] Eosinophils Absolute 0.09 0.00 - 0.50 K/mm3 12/22/2024 6:59 PM EDT [facility] Basophils Absolute 0.03 0.00 - 0.10 K/mm3 12/22/2024 6:59 PM EDT [facility] Blood Venous blood / Unknown Venipuncture / Unknown 12/22/2024 6:45 PM EDT 12/22/2024 6:51 PM EDT Chico Nova DO LAB BLOOD ORDERABLES Fi nal Result [facility] [address] [place] [address], * Acetaminophen level (12/22/2024 6:45 PM EDT) Acetaminophen Level <5.1 <15.0 ug/mL 12/22/2024 7:19 PM EDT [facility] Blood Venous blood / Unknown Venipuncture / Unknown 12/22/2024 6:45 PM EDT 12/22/2024 6:51 PM EDT Chico Nova DO LAB BLOOD ORDERABLES Fi nal Result [facility] [address] [place] [address], [place] [phone] * COVID-19 ([facility]) (12/22/2024 6:41 PM EDT) [place] [id number] ([facility]) PCR Negative Negative LTT PANTHER ANALYZER-DP H 12/22/2024 10:29 PM EDT [facility] Swab (Nasopharynx) Non-blood Collection / Unknown 12/22/2024 6:41 PM EDT 12/22/2024 6:50 PM EDT Chico Nova DO LAB MICROBIOLOGY - GENE RAL ORDERABLES Final Result Performing Organization Address City/[facility]/ZIP Co de Phone Number [facility] [address] [place] [address], [place] [phone] * (ABNORMAL) Urine drugs of abuse screen (12/22/2024 6:40 PM EDT) [facility] Amphetamines, Urine Screen None Detected None Detected 12/22/2024 8:48 PM EDT [facility] Barbiturates, Urine Screen None Detected None Detected 12/22/2024 8:48 PM EDT [facility] Benzodiazepines, Urine Screen Positive(A) None Detected 12/22/2024 8:48 PM EDT [facility] Cocaine, Urine Screen None Detected None Detected 12/22/2024 8:48 PM EDT [facility] Opiates, Urine Screen None Detected None Detected 12/22/2024 8:48 PM EDT [facility] Cannabinoids (THC), Urine Screen Positive(A) None Detected 12/22/2024 8:48 PM EDT [facility] Tricyclic Antidepressants, Urine Screen Positive(A) None Detected 12/22/2024 8:48 PM EDT [facility] Fentanyl, Urine Screen None Detected None Detected 12/22/2024 8:48 PM EDT [facility] Methadone, Urine Screen None Detected None Detected 12/22/2024 8:48 PM EDT [facility] Oxycodone, Urine Screen None Detected None Detected 12/22/2024 8:48 PM EDT [facility] Buprenorphine, Urine Screen None Detected None Detected 12/22/2024 8:48 PM EDT [facility] Phencyclidine, Urine Screen None Detected None Detected 12/22/2024 8:48 PM EDT [facility] Urine Urine specimen obtained by clean catch procedure / Unknown Non-blood Collection / Unknown 12/22/2024 6:40 PM EDT 12/22/2024 6:51 PM EDT Narrative [facility] - 12/22/2024 8:48 PM EDT This is a screening test for urine drugs of ABUSE only, performed using Milly Bibiana analyzer. It is not designed or intended to monitor treatment or assess patient compliance. Those purposes are best served by a specific assay for the specific drug being administered. Like any screening test, this drug screen has inherent limitations. A result of NONE DETECTED indicates the absence of the major metabolites of the tested drugs or their presence at a level below the cut-off concentration (see below). False negative results may be due to the pharmacokinetics of the drug and/or the timing of the sample relative to the use of the drug in question. A POSITIVE result is a presumptive qualitative positive which indicates that the major metabolites of the tested drugs are likely present at or above their cut- off concentration (see below). False positive results may be caused by cross-reacting substances. Unconfirmed positive results of this screening test must not be used for non- medical purposes. Cutoffs for Drug Classes: Amphetamines 1000 ng/mL Barbiturates 200 ng/mL Benzodiazepines 100 ng/mL Cocaine 300 ng/mL Opiates 300 ng/mL TCA 300 ng/mL THC 50 ng/mL Fentanyl 5 ng/mL Methadone 300 ng/ml Oxycodone 100 ng/ml Buprenorphine 5 ng/ml Phencyclidine 25 ng/ml us Chico Nova DO LAB URINE ORDERABLES Fi nal Result [facility] [facility] [address] [place] [address], [place] [phone] documented in this encounter Visit Diagnoses Diagnosis Schizoaffective disorder, bipolar type (CMS/HCC)- Primary Schizoaffective disorder, unspecified condition Hallucinations Encounter for medical screening examination Psychosis, unspecified psychosis type (CMS/HCC) [F29] Schizoaffective disorder, bipolar type (CMS/HCC) Schizoaffective disorder, unspecified condition Psychosis, unspecified psychosis type (CMS/HCC) Personality disorder, unspecified (CMS/HCC) NACHO (generalized anxiety disorder) Generalized anxiety disorder documented in this encounter Admitting Diagnoses Diagnosis Psychosis, unspecified psychosis type (CMS/HCC) documented in this encounter Administered Medications Inactive Administered Medications - up to 3 most recent administrations Medication Order MAR Action Action Date Dose Rate Site cloNIDine (CATAPRES) tablet 0.1 mg 0.1 mg, Oral, 3 times daily, First dose on Fri12/22/24 at 2100, Hold for SBP less than: 100 Given 12/23/2024 8:35 AM EDT 0.1 mg Given 12/22/2024 9:11 PM EDT 0.1 mg divalproex (DEPAKOTE) ER 24 hr tablet 750 mg 750 mg, Oral, Once, On Fri12/22/24 at 1850, For 1 dose, Hazardous Medication - Handle with gloves. Do not crush or split. Given 12/22/2024 9:10 PM EDT 750 mg doxepin (SINEquan) capsule 25 mg 25 mg, Oral, Nightly, First dose on Fri12/22/24 at 2100 Given 12/22/2024 9:10 PM EDT 25 mg gabapentin (NEURONTIN) capsule 400 mg 400 mg, Oral, 3 times daily, First dose on Fri12/22/24 at 2100 Given 12/23/2024 8:35 AM EDT 400 mg Given 12/22/2024 9:10 PM EDT 400 mg haloperidol (HALDOL) tablet 5 mg 5 mg, Oral, 3 times daily, First dose on Fri12/22/24 at 2100 Given 12/23/2024 8:35 AM EDT 5 mg Given 12/22/2024 9:11 PM EDT 5 mg hydrOXYzine (ATARAX) tablet 50 mg 50 mg, Oral, Once, On Fri12/22/24 at 1850, For 1 dose Given 12/22/2024 9:11 PM EDT 50 mg nortriptyline (PAMELOR) capsule 100 mg 100 mg, Oral, Nightly, First dose on Fri12/22/24 at 2099 Given 12/22/2024 9:11 PM EDT 100 mg perphenazine tablet 16 mg 16 mg, Oral, 2 times daily, First dose on Fri12/22/24 at 2100 Given 12/23/2024 8:35 AM EDT 16 mg Given 12/22/2024 9:11 PM EDT 16 mg spironolactone (ALDACTONE) tablet 100 mg 100 mg, Oral, Daily, First dose on [place] 12/23/24 at 0900, Hazardous Medication - Handle with gloves RN may NOT CRUSH or SPLIT dose; This must be done by Pharmacy. Given 12/23/2024 8:35 AM EDT 100 mg documented in this encounter Active and Recently Administered Medications Times are shown in EDT. Scheduled Medication Order 12/21/2024 12/22/2024 12/23/2024 cloNIDine (CATAPRES) tablet 0.1 mg 0.1 mg, Oral, 3 times daily, First dose on Fri12/22/24 at 2100, Hold for SBP less than: 100 2110 (Given - Provider: Daniel Angeles RN) 0835 (Given - Provider: Jessica Romero, RN) divalproex (DEPAKOTE) ER 24 hr tablet 750 mg (COMPLETED) 750 mg, Oral, Once, On Fri12/22/24 at 1850, For 1 dose, Hazardous Medication - Handle with gloves. Do not crush or split. 2109 (Given - Provider: Daniel Angeles RN) doxepin (SINEquan) capsule 25 mg 25 mg, Oral, Nightly, First dose on Fri12/22/24 at 2099 2109 (Given - Provider: Daniel Angeles, TENISHA) gabapentin (NEURONTIN) capsule 400 mg 400 mg, Oral, 3 times daily, First dose on Fri12/22/24 at 2099 2109 (Given - Provider: Daniel Angeles RN) 0835 (Given - Provider: Jessica Romero, RN) haloperidol (HALDOL) tablet 5 mg 5 mg, Oral, 3 times daily, First dose on Fri12/22/24 at 2099 2110 (Given - Provider: Daniel Angeles RN) 0835 (Given - Provider: Jessica Romero RN) hydrOXYzine (ATARAX) tablet 50 mg (COMPLETED) 50 mg, Oral, Once, On Fri12/22/24 at 1850, For 1 dose 2110 (Given - Provider: Daniel Angeles RN) nortriptyline (PAMELOR) capsule 100 mg 100 mg, Oral, Nightly, First dose on Fri12/22/24 at 2099 2110 (Given - Provider: Daniel Angeles RN) perphenazine tablet 16 mg 16 mg, Oral, 2 times daily, First dose on Fri12/22/24 at 2099 2110 (Given - Provider: Daniel Angeles RN) 0835 (Given - Provider: Jessica Romero RN) spironolactone (ALDACTONE) tablet 100 mg 100 mg, Oral, Daily, First dose on [place] 12/23/24 at 0900, Hazardous Medication - Handle with gloves RN may NOT CRUSH or SPLIT dose; This must be done by Pharmacy. 0835 (Given - Provid er: Jessica Romero RN) PRN Medication Order 12/21/2024 12/22/2024 12/23/2024 clonazePAM (KlonoPIN) tablet 1 mg 1 mg, Oral, 2 times daily PRN, anxiety, Starting on Fri12/22/24 at 2019, Hazardous Medication - Handle with gloves RN may NOT CRUSH or SPLIT dose; This must be done by Pharmacy. melatonin tablet 3 mg 3 mg, Oral, Nightly PRN, sleep, Starting on Fri12/22/24 at 2022 OLANZapine (ZYPREXA) tablet 5 mg 5 mg, Oral, Every 6 hours PRN, insomnia, Psychosis (hallucinations, delusions, or disorganized thinking/speech), Starting on Fri12/22/24 at 2022 documented in this encounter Additional Health Concerns Infection Onset Date Last Indicated Resolved Time Covid Possible 12/22/2024 12/22/2024 12/22/2024 10 :29 PM EDT documented as of this encounter Care Teams Drawer In Dobby Loom Relationship Specialty Start Date End Date Zaria Pires MD [address] [place] [id number] PCP - General Internal Medicine 02/08/24 documented as of this encounter
[2024-12-23 17:12] VITALS: BP 135/88; PULSE 80; RESP 16; TEMP 36.4; O2SAT 99; BMI 38.9
--- NOTE | 2024-12-23 18:34 | PC.ADMIT ---
Pt is a 39-y/o female w/ schizoaffective disorder and IBS who got admitted to [facility] from [facility] @ 14:00 for the treatment of schizophrenia & auditory hallucinations. Pt currently lives with family and self-presented after hearing voices and seeing hallucinations of people killing each other. Other recent stressors include pt losing her insurance and since then she has limited contact with her previous providers who she got along with in the past. Pt denies SI/HI however, she does chronically hear a voice telling her to kill herself and cut her wrists. 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 Pt also chronically sees visual hallucinations of people killing each other which is very stressful.? She reports hypersomnia, hypophagia, and worsening fatigue. Depression is 2/10 anxiety is 10/10. Last suicide attempt was at age 19. Denies alcohol use. Denies current nicotine use. States she only smokes weed. Has multiple allergies. Already vaccinated this season. UTOX (+) benzo, cannabinoids, tricyclic antidepressants
--- OUTSIDE RECORDS SUMMARY | 2024-12-23 18:35 | XMS_ITS | Clinical Summary ---
Author Organization [facility] Address [address] [place] [address] Phone Care Team Providers Care Lost And Found Clerk Name Role Phone Unavailable Primary Care Provider Unavailabl e Social History Tobacco Use Types Packs/Day Years Used Date Smoking Tobacco: Never Assessed Comments Unknown Sex and Gender Information Value Date Recorded Sex Assigned at Not on file Legal Sex Female 8:54 PM EDT Gender Identity Not on file Sexual Orientation Not on file Last Filed Vital Signs Vital Sign Reading Time Taken Comments Blood Pressure 124/81 06/15/2024 1:31 PM EDT Pulse 88 06/15/2024 1:31 PM EDT Temperature 36.5 C (97.7 F) 06/15/2024 1:03 PM EDT Respiratory Rate 18 06/15/2024 1:31 PM EDT Oxygen Saturation 97% 06/15/2024 1:31 PM EDT Inhaled Oxygen Concentration - - Weight 103 kg (227 lb) 06/10/2024 10:21 AM EDT Height 177.8 cm (5' 10 ) 06/10/2024 10:21 AM EDT Body Mass Index 32.57 06/10/2024 10:21 AM EDT Plan of Treatment Health Maintenance Due Date Last Done Comments Diabetes Screening 1986 HIV Lifetime Screening 1986 Hepatitis B Lifetime Screening 1986 Hepatitis C Antibody Lifetim e Screening 1986 LIPID PANEL 1986 THRIVE SCREENING 1986 Oral Health Screen 02/02/1987 HEIP Disability Screen 09/03/1991 BEHAVIORAL HEALTH SCREEN 1998 Psych Substance Use Screen 1998 Relationship Safety Screening 2001 DTAP/TDAP VACCINE (1 - Tdap) 2005 PAP SMEAR 09/03/2007 HPV VACCINES (1 - 3-dose SCD M series) 2013 COVID-19 Vaccine (2024-2 6 season) 2024 INFLUENZA VACCINE (#1) 2024 Zoster Vaccine (1 of 2) 2036 IPV VACCINES Aged Out No longer eligi ble based on patient's age to complete this topic MENINGOCOCCAL B Aged Out No longer el igible based on patient's age to complete this topic Pneumonia Vaccine 0-49 Years Aged Out No longer eligible based on patient's age to complete this topic ROTAVIRUS VACCINES Aged Out No longer eligible based on patient's age to complete this topic
--- OUTSIDE RECORDS SUMMARY | 2024-12-23 18:36 | XMS_ITS | Clinical Summary ---
Author Organization [facility]: [facility] Address [address] [place] [address] [address] [place] [address] Care Team Providers Care Medical Laboratory Manager Name Role Phone Shweta Al MD Primary Care Prov ider Allergies Active Allergy Reactions Criticality Noted Date Comments Augmentin Intolerance 11/13/2018 Diarrhea, Nausea, Yeast infection Celexa 05/10/2020 Seizure-like activity disorder Clindamycin Urticaria 08/31/2020 Latex 07/13/2020 Nickel Itching 08/24/2020 Sulfa Drugs 05/21/2017 hives Apra 05/21/2017 Hives, vomiting Azithromycin Dihydrate 05/21/2017 Joint swelling, rash Medications gabapentin (NEURONTIN) 300 MG Oral Cap Take 300 mg by mouth 4 TIMES A DAY. Active lamotrigine (LAMICTAL) 150 MG Oral TabIndications: 25 mg in morning, 150 at bedtime Take 150 mg by mouth TWICE A DAY. Active traZODone HCl (DESYREL) 100 MG Oral Tab Take 100 mg by mouth AT BEDTIME. Active nortriptyline (PAMELOR) 50 MG Oral Cap Take 50 mg by mouth AT BEDTIME. Active atomoxetine (STRATTERA) 40 MG Oral Cap Take 40 mg by mouth EVERY MORNING. Swallow whole. Do not open capsule. Active clonazePAM (KLONOPIN) 1 MG Oral Tab Take 1 mg by mouth TWICE A DAY. May cause dizziness/drow siness Active haloperidol (HALDOL) 5 MG Oral Tab Take 5 mg by mouth TWICE A DAY. Active Multiple Vitamin (MULTI VITAMIN DAILY PO) Active loratadine (CLARITIN) 1 mg/ml Active albuterol sulfate HFA 108 (90 Base) MCG/ACT Inhalation Aero Soln Inhale 2 Puffs EVERY 4 HOURS NEEDED. 9 Active spironolactone (ALDACTONE) 50 MG Oral Tab TAKE 1 TABLET BY MOUTH ONCE DAILY IF TOLETATED INCREASE TO 2 TABLETS BY MOUTH AFTER 1 MONTH Active Ibuprofen (ADVIL) 200 MG Oral Cap Take 200 mg by mouth EVERY 6 HOURS NEEDED for Pain. Take with food Active Active Problems No known active problems Social History Tobacco Use Types Packs/Day Years Used Date Smoking Tobacco: Every Day Cigarettes Smokeless Tobacco: Never Comments:e cigarette Alcohol Use Standard Drinks/Week Comments Yes 0 (1 standard drink = 0.6 oz pur e alcohol) rare Comments No Sex and Gender Information Value Date Recorded Sex Assigned at Not on file Legal Sex Female 11:10 AM EDT Gender Identity Not on file Sexual Orientation Not on file Last Filed Vital Signs Vital Sign Reading Time Taken Comments Blood Pressure 100/68 10/03/2020 6:57 PM EDT Pulse 111 10/03/2020 6:57 PM EDT Temperature 37 C (98.6 F) 10/03/2020 6:57 PM EDT Respiratory Rate 18 10/03/2020 6:57 PM EDT Oxygen Saturation 100% 10/03/2020 6:57 PM EDT Inhaled Oxygen Concentration - - Weight 113.4 kg (250 lb) 05/12/2020 9:06 PM EST Height 177.8 cm (5' 10 ) 05/12/2020 9:06 PM EST Body Mass Index 35.87 05/12/2020 9:06 PM EST Plan of Treatment Not on file Insurance [facility] HMO Care Teams Medical Laboratory Manager Relationship Specialty Start Date End Date Shweta Al MD [address] [place] [address] PCP - General Internal Medicine 07/14/20
--- OUTSIDE RECORDS SUMMARY | 2024-12-23 18:36 | XMS_ITS | Patient Health Record ---
Author Organization [id number] [facility] Address [address] [place], [place] [id number] Care Team Providers Care Audio Visual Project Manager Name Role Phone Shweta Mondragon Primary Care Provider Unavailabl e Reason For Referral No Information Plan Of Treatment No Information Insurance Providers Payer Name Payer Address Payer Phone Subscriber Number Group Number Insured Name Patient Relationship to Insured Coverage Start Date Coverage End Date [facility] [employer] CLAIM[employer] [address] [place], [place] [id number] Boubacar Marvin Self - patient is the insured 1 1
--- OUTSIDE RECORDS SUMMARY | 2024-12-23 18:36 | XMS_ITS | Clinical Summary ---
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 Power Brake Rebuilder Name Role Phone Zaria Pires MD Primary Care Provider [phone] Allergies Active Allergy Reactions Criticality Noted Date Comments Acetaminophen Diarrhea,Hives,Naus ea And Vomiting Medium 03/10/2005 Other reaction(s): Other (See Comments) Hives, vomiting Hives, vomiting Hives, vomiting Hives, vomiting Amoxicillin-Pot Clavulanate Nausea Only 11/13/2018 Other reaction(s): Intolerance, Other (See Comments), Other (See Comments) Diarrhea, Nausea, Yeast infection Diarrhea, Nausea, Yeast infection Diarrhea, Nausea, Yeast infection Diarrhea, Nausea, Yeast infection Azithromycin Hives,Itching,Rash, Swelling Medium 08/13/2005 Joint swelling, rash Joint swelling, rash Joint swelling, rash Joint swelling, rash Banana 03/10/2005 Other reaction(s): Other (See Comments) Citalopram Dizziness,Hallucina tions,Headache,Othe r 04/22/2019 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 albuterol 108 (90 Base) MCG/ACT inhaler Inhale 90 g. 11/12/19 Active Ajovy 225 MG/1.5ML auto-injector INJECT 1 PEN SUBCUTANEOUSLY ONCE A MONTH 08/14/19 23 Active multivitamin (Theragran-M) tablet Take 1 tablet by mouth in the morning. Active spironolactone (Aldactone) 100 MG tabletIndications :Hidradenitis Suppuritiva- given by derm Take 100 mg by mouth Once per day. 08/27/19 23 Active SUMAtriptan (Imitrex) 50 MG tablet Take 2 tablets (100 mg) by mouth if needed for migraine. Given by neurologist 04/07/19 25 Active levocetirizine (Xyzal) 5 MG tablet Take 1 tablet (5 mg) by mouth in the evening. Given by fixture repairer fabricator 04/07/19 25 Active Biotin 5 MG tablet dispersible Take 1 tablet by mouth Once per day. OTC 04/07/19 25 Active amphetamine-dextr oamphetamine (Adderall) 10 MG tabletIndications :High risk medication use,ADHD (attention deficit hyperactivity disorder), inattentive type Take 1 tablet (10 mg) by mouth 2 times daily. Outside provider 04/07/19 25 Active cloNIDine (Catapres) 0.1 MG tablet Take 0.1 mg by mouth if needed in the morning, at noon, and at bedtime (anxiety). Active EQUATE STOOL SOFTENER 100 MG capsule Take 100 mg by mouth 2 times daily. Active doxepin (SINEquan) 25 MG capsule Take 25 mg by mouth at bedtime. 04/02/19 25 Active EPINEPHrine (AUVI-Q) 0.15 mg/0.15 mL IJ solution auto-injector injection Inject 0.15 mg into the muscle 1 (one) time if needed for anaphylaxis. Active hydrOXYzine pamoate (Vistaril) 50 MG capsule Take 50 mg by mouth every 6 (six) hours if needed for anxiety. 04/02/19 25 Active Iron-Vitamin C (Iron 100/C) 100-250 MG tablet Take 500 mg by mouth Once per day. Active loratadine (Claritin) 10 MG tablet Take 10 mg by mouth Every 6-8 hours as needed for allergies. Per fixture repairer fabricator Active melatonin 5 MG tablet Take 2 tablets by mouth at bedtime. 04/02/19 Active Multiple Vitamin (Tab-A-Tesfaye) tablet Take 1 tablet by mouth Once per day. 04/02/19 Active omega-3 1000 MG capsule capsule Take 1,000 mg by mouth Once per day. 05/09/19 Active perphenazine 16 MG tablet Take 16 mg by mouth 2 times daily. Active perphenazine 4 MG tablet Take 4 mg by mouth 2 times daily. Active sennosides (Senokot) 8.6 MG tablet Take 1 tablet by mouth if needed for constipation. Active gabapentin (Neurontin) 400 MG capsule Take 400 mg by mouth 3 times daily. Active haloperidol (Haldol) 5 MG tablet Take 1 tablet by mouth Once per day. 04/02/19 Active lamoTRIgine (LaMICtal) 200 MG tablet Take 200 mg by mouth at bedtime. Active lamoTRIgine (LaMICtal) 25 MG tablet Take 50 mg by mouth Once per day. Active clonazePAM (KlonoPIN) 1 MG tabletIndications :Hospital discharge follow-up Take 1 tab twice a day with 1 tablet as needed for panic Given by psychiatry ( recently increased in hospital). 04/07/19 Active Active Problems Problem Noted Date Diagnosed Date High risk medication use 10/23/2022 Acne scarring 08/30/2022 Asthma with acute exacerbation 08/30/2022 Conversion disorder with seizures or convulsions 08/30/2022 Dysmenorrhea 08/30/2022 Endometriosis 08/30/2022 Fatigue 08/30/2022 Galactorrhea not associated with childbirth 08/09 Hematochezia 08/30/2022 Hidradenitis suppurativa 08/30/2022 Menstrual irregularity 08/30/2022 Neoplasm of uncertain behavior of skin Patellofemoral pain syndrome 08/30/2022 Pilonidal cyst with abscess 08/30/2022 Stiff neck 08/30/2022 Sprain of thumb 08/30/2022 Marijuana use 07/04/2022 Caffeine use 07/04/2022 Nicotine dependence, cigarettes, uncomplicated 0 05/29/2022 ADHD (attention deficit hype ractivity disorder), inattentive type 03/13/2022 Schizoaffective disorder ([facility]) 02/08/2022 NACHO (generalized anxiety disorder) 02/08/2022 Personality disorder, unspecified 02/08/2022 Allergies 08/08/2021 Fatty liver 07/28/2020 Acne vulgaris 07/01/2020 PTSD (post-traumatic stress disorder) 05/10/2019 Bipolar 1 disorder ([facility]) 05/10/2019 IBS (irritable bowel syndrome) 05/10/2019 Insomnia 04/22/2019 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 Resolved Problems Problem Noted Date Diagnosed Date Resolved Date Adjustment disorder with mix ed anxiety and depressed mood 08/30/2022 11/15/2022 Tobacco use 02/08/2022 05/29/2022 Immunizations Immunization Administration Dates Next Due HPV 9-Valent 01/29/2021,09/27/2020,07/26/2020 Influenza injectable quadriv alent preservative free 01/21/2022,05/25/2019 Influenza, seasonal, injecta ble, preservative free 04/07/2024 Pneumococcal Conjugate PCV 20 04/23/2022 Tdap 05/10/2019,02/20/2011 Social History Tobacco Use Types Packs/Day Years Used Date Smoking Tobacco: Every Day Cigarettes Passive Smoke Exposure: Never Smokeless Tobacco: Never Alcohol Use Standard Drinks/Week Comments Never 0 (1 standard drink = 0.6 oz pur e alcohol) PHQ-2 Answer Date Recorded Patient Health Questionnaire-2 Score 0 09/03/2022 Alcohol Answer Date Recorded Q1: How often do you have a drink containing alc ohol? 1 04/07/2024 Q2: How many drinks containi ng alcohol do you have on a typical day when you are drinking? 0 04/07/2024 Q3: How often do you have six or more drinks on one occasion? 1 04/07/2024 Housing Stability Answer Date Recorded What is your housing situation today? I have daphney seth 10/07/[address] you li ve. Do you have problems with any of the following? None of the above 10/07/2023 Food Insecurity Answer Date Recorded Within the past 12 months, y ou worried that your food would run out before you got money to buy more: Never True 10/07/2023 Within the past 12 months,th e food you bought just didn't last and you didn't have enough money to get more: Never True Transportation Answer Date Recorded In the past 12 months, has l ack of transportation kept you from medical appts, meetings, work or from getting things needed for daily living? No 10/07/2023 Utilities Answer Date Recorded In the past 12 months, has t he electric, gas, oil or water company threatened to shut off services in your home? No 10/07/2023 Depression Answer Date Recorded Patient Health Questionnaire-2 Score 0 04/07/2024 Internet Access Answer Date Recorded Internet Access Q1 Yes 11/10/2023 Internet Access Q2 Not on file 11/10/2023 Comments No Sex and Gender Information Value Date Recorded Sex Assigned at Female 01/08/2022 2:42 PM EDT Legal Sex Female 2:42 PM EDT Gender Identity Female 02/28/2022 7:21 AM EST Sexual Orientation Lesbian 03/05/2022 5: 43 PM EST Last Filed Vital Signs Vital Sign Reading Time Taken Comments Blood Pressure 105/70 04/20/2024 3:29 PM EST Pulse 93 04/20/2024 3:29 PM EST Temperature 37.4 C (99.3 F) 04/20/2024 3:29 PM EST Respiratory Rate 17 04/14/2024 6:49 PM EST Oxygen Saturation 98% 04/20/2024 3:29 PM EST Inhaled Oxygen Concentration - - Weight 103 kg (227 lb) 04/20/2024 3:29 PM EST Height 172.7 cm (5' 8 ) 04/14/2024 6:49 PM EST Body Mass Index 34.52 04/14/2024 6:49 PM EST Plan of Treatment Health Maintenance Due Date Last Done Comments Derm Melanoma Skin Check 03/04/1987 Family Planning (PISQ) 2001 Hepatitis A Vaccines (1 of 2 - Risk 2-dose series) 2005 Hepatitis B Vaccines (1 of 3 - 19+ 3-dose series) 2005 COVID-19 Vaccine ( - season) 2024 02/04/2023, 01/21/2022, 03/14/2021, Additional history exists Influenza Vaccine (#1) 2024 , 02/04/2023, 01/21/2022, Additional history exists Disability Screening 03/05/2025 03/05/2024 Alcohol/Substance Use Screening 04/07/2025 04/07/2024 Depression Screening 04/07/2025 04/07/2024, 04/07/19 SDOH Screening 04/07/2025 04/07/2024 Tobacco Screening 04/20/2025 04/20/2024 Cervical Cancer Screening 10/12/2026 HPV/Cotest 10/12/2026 10/12/2021 Pap Smear 10/12/2026 10/12/2021, 10/12/2021 Lipid Panel 04/21/2028 04/21/2023, 08/08, 11/01/2020 DTaP/Tdap/Td Vaccines (3 - Td or Tdap) 05/09/2029 05/10/2019, 02/20/2011 Zoster Vaccines (1 of 2) 2036 RSV Patients and Patients Aged 60 years or older (1 - 1-dose 75+ series) 2061 HPV Vaccines Completed 01/29/2021, 09/08, 07/26/2020 Pneumococcal Vaccine: Pediatrics (0 to 5 Years) and At-Risk Patients (6 to 49) Years Completed 04/23/2022 HIV Screening Completed 08/19/2022 Hepatitis C Screening Completed 08/19/2022, 021 HIB Vaccines Aged Out No longer eligi ble based on patient's age to complete this topic IPV Vaccines Aged Out No longer eligi ble based on patient's age to complete this topic Meningococcal B Vaccine Aged Out No l onger eligible based on patient's age to complete this topic Meningococcal Vaccine Aged Out No radha kg eligible based on patient's age to complete this topic RSV under 20 months Aged Out No longe r eligible based on patient's age to complete this topic Rotavirus Vaccines Aged Out No longer eligible based on patient's age to complete this topic Procedures Procedure Name Priority Date/Time Associated Diagnosis Comments LIPID PANEL, STANDARD Routine 04/21/2023 10:17 PM EST Screening for metabolic disorder HEPATITIS C AB W/REFL TO HCV RNA, QN, PCR Routine 08/19/2022 9:38 AM EDT Need for hepatitis C screening test HIV 1/2 ANTIGEN/ANTIBODY, FOURTH GENERATION W/RFL Routine 08/19/2022 9:38 AM EDT Screening for HIV (human immunodeficiency virus) THINPREP IMAGING PAP AND HPV MRNA E6/E7 WITH REFLEX TO HPV 16,18/45 Routine 10/12/2021 6:05 PM EDT from Last 3 Months or Most Recently Relevant to Health Maintenance Results * (ABNORMAL) Lipid Panel, Standard (04/21/2023 10:17 PM EST) Cholesterol, Total 172 <200 mg/dL [facility] HDL Cholesterol 36(L) > OR = 50 mg/dL [facility] Triglycerides 92 <150 mg/dL [facility] LDL Cholesterol 116(H) mg/dL [facility] [employer] Comment: Reference range: <100 Desirable range <100 mg/dL for primary prevention; <70 mg/dL for patients with CHD or diabetic patients with > or = 2 CHD risk factors. LDL-C is now calculated using the Real-Kulkarni calculation, which is a validated novel method providing better accuracy than the Friedewald equation in the estimation of LDL-C. Real SS et al. FIDEL. 2013;310(19): 3911-5364 (http://education.Henable.Competitor/faq/IZL734) Chol/HDLC Ratio 4.8 <5.0 (calc) [facility] Non-HDL Cholesterol 136(H) <130 mg/dL [facility] Comment: For patients with diabetes plus 1 major ASCVD risk factor, treating to a non-HDL-C goal of <100 mg/dL (LDL-C of <70 mg/dL) is considered a therapeutic option. Blood Venous blood specimen / Unknown 04/21/2023 10:17 PM EST 04/21/2023 10:32 PM EST us Zaria Pires MD LAB BLOOD ORDERABLES Final Resul t Performing Organization Address City/[facility]/ZIP Co de Phone Number [address], [facility] [place] [address] [facility] [place] [facility] [address] [place] [address] * Hepatitis C Antibody with Reflex to HCV, RNA, Quantitative, Real-Time PCR (08/19/2022 9:38 AM EDT) Hepatitis C Antibody NON-REACT NIKA NON-REACT NIKA [facility] [place] [employer] Index 0.11 <1.00 [facility] [place] [employer] Comment: HCV antibody was non-reactive. There is no laboratory evidence of HCV infection. In most cases, no further action is required. However, if recent HCV exposure is suspected, a test for HCV RNA (test code 18652) is suggested. For additional information please refer to http://education.[employer] [place]/faq/VAC79v6 (This link is being provided for informational/ educational purposes only.) Blood Venous blood specimen / Unknown 08/19/2022 9:38 AM EDT 08/20/2022 11:03 AM EDT Zaria Pires MD LAB BLOOD ORDERABLES Final Resul t Performing Organization Address [facility]/ZIP Co de Phone Number [facility] [address], [place] [address] [facility] [place] [facility] [address] [place] [address] * HIV-1/2 Antigen and Antibodies, Fourth Generation, with Reflexes (08/19/2022 9:38 AM EDT) HIV Antigen/Antibody, 4th Generation NON-REAC TIVE NON-REAC TIVE [facility] [place] [facility] Comment: HIV-1 antigen and HIV-1/HIV-2 antibodies were not detected. There is no laboratory evidence of HIV infection. PLEASE NOTE: This information has been disclosed to you from records whose confidentiality may be protected by state law. If your state requires such protection, then the state law prohibits you from making any further disclosure of the information without the specific written consent of the person to whom it pertains, or as otherwise permitted by law. A general authorization for the release of medical or other information is NOT sufficient for this purpose. For additional information please refer to http://education.[employer] [place]/faq/CKO920 (This link is being provided for informational/ educational purposes only.) The performance of this assay has not been clinically validated in patients less than 2 years old. Blood Venous blood specimen / Unknown 08/19/2022 9:38 AM EDT 08/20/2022 11:03 AM EDT us Zaria Pires MD LAB BLOOD ORDERABLES Final Resul t [address], [place] [address] [facility] [address] [place] [phone] * HPV mRNA E6/E7 REFLEX /TH, INPREP TIS PAP (10/12/2021 6:05 PM EDT) Clinical Information: SEE COMMENT [facility] Comment: THINPREP TIS PAP AND HPV mRNA E6/E7 WITH REFLEX TO HPV 16,18/45 Lab: NL2 CLINICAL INFORMATION: None given LMP: 09/07/2020 prev. Pap: UNKNOWN prev. Bx: UNKNOWN SOURCE: Cervix STATEMENT OF ADEQUACY: Satisfactory for evaluation. Endocervical/transformation zone component present. INTERPRETATION/RESULT: Negative for intraepithelial lesion or malignancy. COMMENT: This Pap test has been evaluated with computer assisted technology. GRADUATE ENGINEER: MEENA MACIEL(ASCP) CT screening location: [address] [address] For questions contact Anatomic Pathology Client Services at [phone] EXPLANATORY NOTE: The Pap is a screening test for cervical cancer. It is not a diagnostic test and is subject to false negative and false positive results. It is most reliable when a satisfactory sample, regularly obtained, is submitted with relevant clinical findings and history, and when the Pap result is evaluated along with historic and current clinical information. Lab: [facility] HPV mRNA E6/E7 REFLEX HPV 16, 18/45 HPV mRNA E6/E7 Not Detected Reference Range: Not Detected Methodology: Fuel Cell Binder-Mediated Amplification This assay detects E6/E7 viral messenger RNA (mRNA) from 14 high-risk HPV types (16,18,31,33,35,39,45,51,52,56,58,59,66,68). Cervical sources are required for HPV testing. If a vaginal source from a patient who has had a total hysterectomy with removal of cervix was submitted, please contact the testing laboratory for alternative testing options. For additional information, please refer to http://education.[employer] [place]/faq/EYK663b5 (This link if provided for information/ educational purposes only.) THINPREP TIS PAP AND HPV mRNA E6/E7 WITH REFLEX TO HPV 16,18/45 PERFORMING SITE: [facility] [employer] [address] [address] Rn Labor Delivery: RIA NEWSOME MD, CLIA: [id number] 10/12/2021 6:05 PM EDT us Ирина Foster NP LAB PATHOLOGY ORDERABLES Cherie jimenes Result [facility] [address] from Last 3 Months or Most Recently Relevant to Health Maintenance Insurance [facility] PPO [employer] BCBS PPO Care Teams Power Brake Rebuilder Relationship Specialty Start Date End Date Zaria Pires MD [address] [place] [id number] PCP - General Internal Medicine 05/30/22
--- OUTSIDE RECORDS SUMMARY | 2024-12-23 18:36 | XMS_ITS | Patient Health Record ---
Author Organization [facility] Billing Address [address] [place] [address] [place] [phone] Care Team Providers Care Pest Control Operator Name Role Phone Zaria Pires MD Primary Care Provider Unavailab remigio TOLEDO MD, RONAN Unavailable [phone] nurse, nurse Unavailable Unavailable [facility], JUNI Unavailable [phone] Allergies Allergen (clinical drug ingredient) Drug/Non Drug Allergy documented on EMR Reaction Allergy Type Onset Date Status azithromycin Azithromycin hives, rash, trouble breathing (within a day) Drug Allergy Active Sulfamethoxazole hives, rash, trouble breathing (within a day) Drug Allergy Active acetaminophen Tylenol hives, rash, trouble breathing (within a day) Drug Allergy Active clindamycin Clindamycin hives, rash, trouble breathing (within a day) Drug Allergy Active Reason For Referral No Information Medications Medication SIG (Take, Route, Frequency, Duration) Notes Start Date End Date Status Nortriptyline HCl 50 MG 1 cap(s) orally once a day Active Nystatin 101392 UNIT/ML 4 mL Mouth/Throa t Four times a day; Duration: 14 days 12/31/2022 Active Ventolin HFA 108 (90 Base) MCG/ACT 2 puff(s) inhaled every 6 hours 04/16/2022 Active Albuterol Sulfate HFA 108 (90 Base) MCG/ACT 2 puff(s) inhaled every 6 hours as needed for wheeze, cough or shortness of breath; Duration: 30 days Active EPINEPHrine 0.3 MG/0.3ML as directed intramuscularly as needed for anaphylaxis/angioedema 07/19/2021 Activ e Loratadine 10 MG 1 tablet Orally Once a day Active traZODone HCl 100 MG 1 tab(s) orally as needed Active Polina-ozey 8.6 MG 1 tab(s) orally once a day (at bedtime) Active Docusate Sodium 100 MG 1 cap(s) orally 2 times a day Active lamoTRIgine 150 MG 1 tab(s) orally 2 ti mes a day; Duration: 30 day(s) Active Haloperidol 5 MG 1 tab(s) orally 3 ti mes a day Active Ajovy 225 MG/1.5ML as directed subcutan eously once a month Active Levocetirizine Dihydrochloride 5 MG 1 tab(s) orally Once a day; Duration: 90 days 07/10/2021 Active Centrum Adults - 1 tab(s) orally once a day; Duration: 30 day(s) Active clonazePAM 1 MG 1 tab(s) orally 3 ti mes a day; Duration: 30 day(s) Active Biotin 5 MG 1 tab(s) orally once a day Active Gabapentin 300 MG 1 cap(s) orally 4 ti mes a day Active Spironolactone 100 MG 1 tab(s) orally on ce a day; Duration: 30 day(s) Active Strattera 40 MG 1 cap(s) orally once a day (in the morning); Duration: 30 day(s) Active Imitrex 50 MG 1 tab(s) orally once Active Social History Tobacco Use: Social History Observation Description Date Details (start date - stop date) Current Smoker 07/24/2007 - NA Smoking: Question Answer Notes Are you a: current smoker Not exposed to s econd-hand cigarette smoke Are you interested in quitting? Not ready to quit How many cigarettes a day do you smoke? 6-10 How soon after you wake up d o you smoke your first cigarette? after 60 min How often do you smoke cigarettes? some days, but not every day When did you start smoking? 07/24/2007 Additional Findings: Tobacco User Light cigarette smoker ((1-9 cigs/day) Problems Problem Type SNOMED Code ICD Code Onset Dates Problem Status W/U Status Risk Notes Problem Exercise induced bronchospasm (271852166) Exercise induced bronchospasm (J45.990) Active confirmed Problem Mild intermittent asthma (989931051) Mild intermittent asthma, uncomplicated (J45.20) Active confirmed Problem Allergic rhinitis caused by pollen (disorder) (79354456) Allergic rhinitis due to pollen (J30.1) Active confirmed Change in serum from Center-Al to Center Mix. PLAN: Rebuild every one to two weeks, then may return to every three weeks once serum has been rebuilt on Center Mix. Problem Allergic rhinitis caused by animal hair and dander ([id number]) Allergic rhinitis due to animal (cat) (dog) hair and dander (J30.81) Active confirmed Problem Allergic rhinitis (86605548) Other allergic rhinitis (J30.89) Active confirmed Vital Signs Heart Rate 82 /min 01/02/2024 Blood pressure diastolic 62 mm Hg 01/02/2024 Height 70 in 01/02/2024 Blood pressure systolic 117 mm Hg 01/02/2024 Weight 218 lbs 01/02/2024 BMI 31.28 kg/m2 01/02/2024 Encounters Encounter Location Date Provider Diagnosis [facility] [address] [id number] 09/15/2024 nurse nurse Allergic rhinitis du e to pollen J30.1 and Other allergic rhinitis J30.89 [facility] [address] [id number] 12/15/2024 nurse nurse Allergic rhinitis du e to pollen J30.1 and Other allergic rhinitis J30.89 [facility] [address] [id number] 01/02/2024 JUNI IHEUWA Allergic rhinitis du e to pollen J30.1 ; Other allergic rhinitis J30.89 ; Allergic rhinitis due to animal (cat) (dog) hair and dander J30.81 and Mild intermittent asthma, uncomplicated J45.20 [facility] [address] [id number] 01/04/2024 RONAN TOLEDO [facility] [address] [id number] 01/28/2024 nurse nurse Allergic rhinitis du e to pollen J30.1 and Other allergic rhinitis J30.89 [facility] [address] [id number] 04/07/2024 nurse nurse Allergic rhinitis du e to pollen J30.1 and Other allergic rhinitis J30.89 [facility] [address] [id number] 05/18/2024 nurse nurse Allergic rhinitis du e to pollen J30.1 and Other allergic rhinitis J30.89 [facility] [address] [id number] 06/22/2024 nurse nurse Allergic rhinitis du e to pollen J30.1 and Other allergic rhinitis J30.89 [facility] [address] [id number] 07/21/2024 nurse nurse Allergic rhinitis du e to pollen J30.1 and Other allergic rhinitis J30.89 [facility] [address] [id number] 08/18/2024 nurse nurse Allergic rhinitis du e to pollen J30.1 and Other allergic rhinitis J30.89 [facility] [address] [id number] 05/04/2024 JUNI MARIPOSAEUWA Allergic rhinitis du e to pollen J30.1 Assessments Encounter Date Diagnosis (ICD Code) Assessment Notes Treatment Notes Treatment Clinical Notes Section Notes 01/02/2024 Allergic rhinitis due to pollen (ICD-10 - J30.1) 01/28/2024 Allergic rhinitis due to pollen (ICD-10 - J30.1) 01/28/2024 Other allergic rhinitis (ICD-10 - J30.89) 04/07/2024 Allergic rhinitis due to pollen (ICD-10 - J30.1) 05/04/2024 Allergic rhinitis due to pollen (ICD-10 - J30.1) 05/18/2024 Allergic rhinitis due to pollen (ICD-10 - J30.1) 06/22/2024 Allergic rhinitis due to pollen (ICD-10 - J30.1) 07/21/2024 Allergic rhinitis due to pollen (ICD-10 - J30.1) 08/18/2024 Allergic rhinitis due to pollen (ICD-10 - J30.1) 09/15/2024 Allergic rhinitis due to pollen (ICD-10 - J30.1) 12/15/2024 Allergic rhinitis due to pollen (ICD-10 - J30.1) 12/15/2024 Other allergic rhinitis (ICD-10 - J30.89) 09/15/2024 Other allergic rhinitis (ICD-10 - J30.89) 08/18/2024 Other allergic rhinitis (ICD-10 - J30.89) 07/21/2024 Other allergic rhinitis (ICD-10 - J30.89) 06/22/2024 Other allergic rhinitis (ICD-10 - J30.89) 05/18/2024 Other allergic rhinitis (ICD-10 - J30.89) 04/07/2024 Other allergic rhinitis (ICD-10 - J30.89) 01/02/2024 Other allergic rhinitis (ICD-10 - J30.89) 01/02/2024 Allergic rhinitis due to animal (cat) (dog) hair and dander (ICD-10 - J30.81) 01/02/2024 Mild intermittent asthma, uncomplicated (ICD-10 - J45.20) Plan Of Treatment Pending Test Test Name Order Date mone 07/10/2021 Next Appt Details Provider Name:JUNI Mitchell, 01/12/2025 02:30:00 PM, [address] [facility], [address], [place], [place], [id number], Insurance Providers Payer Name Payer Address Payer Phone Subscriber Number Group Number Insured Name Patient Relationship to Insured Coverage Start Date Coverage End Date [facility] [address] [place] [address] [id number] Boubacar Marvin Self - patient is the insured Medical (General) History Medical History History ICD Code Urticaria, unspecified L50.9 Bee allergy status Z91.030 Tachycardia, unspecified R00.0 Unspecified conjunctivitis H10.9 Migraine, unspecified, not intractable, without status migrainosus G43.909 Other recurrent depressive disorders F33 .8 Anxiety disorder, unspecified F41.9 Bipolar disorder, unspecified F31.9 Bronchitis, not specified as acute or ch ronic J40 Pneumonia, unspecified organism J18.9 Shortness of breath R06.02 Surgical History Surgery Date(Month/Year) Appendectomy Endometriosis Hospitalization History Reason Date(Month/Year) Mental health Above surgeries
--- OUTSIDE RECORDS SUMMARY | 2024-12-23 18:36 | XMS_ITS | Data Portability ---
Author Organization [facility] [place] Address [address] [place] [address] Care Team Providers Care Feed Research Technician Name Role Phone MARQUEZ PATEL Primary Care Provider JORGE ZAYAS Primary Care Provider Assessment Encounter Date Assessment Date Assessment LastModified by Organization Details LastModified Time 05/03/2024 05/03/2024 RUE EMG PERFORME D Reason for Exam: Evaluate for RIGHT ulnar neuropathy. NCV & EMG Findings: Evaluation of the right ulnar motor nerve showed decreased conduction velocity (A Elbow-B Elbow, 43 m/s). All remaining nerves (as indicated in the following tables) were within normal limits. Left vs. Right side comparison data for the ulnar sensory nerve indicates abnormal L-R amplitude difference (91.0 %). Needle evaluation of the right first dorsal interosseous muscle showed increased insertional activity, normal spontaneous activity, increased motor unit amplitude, increased motor unit duration, and diminished recruitment. All remaining muscles (as indicated in the following table) showed no evidence of electrical instability. 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 There is no evidence of a median mononeuropathy nor a cervical radiculopathy. [email or web address] Not available 05/03/2024 15:41:24 06/03/2024 06/03/2024 Date of Surgery: 02/03/2024 History: Kyle returns after having a right cubital tunnel release she continues to have numbness and tingling in her small and ring fingers. She has not noticed any substantial improvement in this. Exam: Pleasant and non-toxic appearing. The hand is well perfused. EPL, FPL, and interossei function is intact. She does have mild weakness with intrinsics without atrophy. There was no subluxation of her nerve at the elbow. Sensation is decreased to the ulnar nerve distribution. Sensation is intact to the median and radial nerves. she does have a mild Tinel's at the cubital tunnel. There is no subluxation of the ulnar nerve. I reviewed her nerve test in great detail. This was done on 05/03/2024. There is mild improvement since her preoperative nerve test with a me ulnar velocity that went from 37 to 43 M/sec. 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 We had a very long conversation about this. We reviewed in great detail the pre and post nerve test. While there has been mild improvement, she is not noticing a substantial amount of improvement clinically. We talked at great length about this and talked about surgical and nonsurgical options. Given the bothersome this of this, she would like to proceed with further surgery including a right cubital tunnel release and submuscular transposition. We talked about this at great length. We did talk about the intraoperative and postoperative courses and the effects on the nerve. We talked about the goals of the surgery and the long healing process. She understands this and would like to proceed with surgery. Therefore we will proceed with a right cubital tunnel release and submuscular transposition. Not available 06/03/2024 15:27:15 06/15/2024 06/15/2024 Surgeon: Seth Lopez MD Pre-operative Diagnosis: Right cubital syndrome Post-operative Diagnosis: Right cubital syndrome Procedure: 1. Right cubital tunnel release 70015 2. Right submuscular transposition 90673 Anesthetic: Regional Block Indications: This is a 38-year-old female for whom I had performed a cubital tunnel release last year. She has had persistent symptoms and her nerve test showed persistent fact slight worsening of her nerve compression. She and I had a very long conversation about this and she elected the for the above-mentioned operation. She and I discussed at great length that surgery may not normalize the symptoms but ideally do improve them. Non-operative measures were unsuccessful in alleviating her symptoms. She elected for this procedure after risks and benefits of nerve damage, tendon damage, infection, stiffness, persistent pain, and failure to relieve symptoms were discussed at length. Findings: Significant compression of a thickened Rodriguez's ligament as well as compression at the FCU heads and at the [place] of [place]. An inflammed and injected ulnar nerve. Procedure: The patient was correctly identified in the same day holding area. Proper operative site and consent was confirmed. The patient was then taken back to the operating theater. Pre-operative IV antibiotics were given. A well padded, nonsterile pneumatic tourniquet was applied. The patient was then prepped and draped in the usual sterile fashion. Proper site verification was performed with the nursing staff. I provided a preemptive block with Marcaine. The arm was then elevated, exsanguinated, and the tourniquet was inflated to 250mm Hg. I revisited her prior incision. I carefully dissected down and protected branches of the medial antebrachial nerve. There was scar around the ulnar nerve. I very carefully dissected out the scar to free this up. I then took the elbow through a full range of motion. While there was no subluxation, I did then proceed to the submuscular transposition in an effort to improve the nerve function. I then identified the intermuscular septum and resected a section of this so as to prevent a further point of compression. I then exposed the flexor pronator mass. At this point I then proceeded to a Z-lengthening of her flexor pronator mass. I lifted up a flap of the flexor pronator insertion distally with it maintaining a ulnar based attachment and lifted up a second flap proximal to this with a radial-based attachment. At this point I then mobilized the ulnar nerve preserving as much of the vasculature as possible. This gently was placed in between these 2 flaps of the flexor pronator tendon. I then placed a series of 0 Vicryls ensuring that the ulnar nerve was free. I then took the elbow through a full range of motion to observe the ulnar nerve gliding free The tourniquet was taken down. Meticulous hemostasis was achieved with bipolar cautery at this point. Subcutaneous Vicryl was then used to re-approximate the skin. A running subcuticular monocryl was then used for the skin. Steristrips, 4X4s and posterior splint was then used to dressed the wound. An immobilizing sling was applied. The patient was then awaken from the anesthetic. All sponge and needle counts were correct. There were no obvious intraoperative complications. The patient was given narcotic pain medicines for home. She was instructed that she is not to consume alcohol, drive or operative heavy machinery while under the influence of narcotic pain medicines. She is follow-up with me in 12 days at which point we will begin mobilization. Not available 06/15/2024 15:53:34 06/29/2024 06/29/2024 Date of Surgery: 06/15/2024 History: Kyle returns 2 weeks after having a right cubital tunnel release and submuscular transposition. Overall she has been doing well. She has not been having pain. She has been happy with her results thus far. Exam: Pleasant and non-toxic appearing. Wrist splint is in excellent condition. Her wound looks great. The hand is well perfused. EPL, FPL, and interossei function is intact. Sensation is intact to the median, radial, and Improved to the ulnar nerve distribution. nerves. Assessment and plan: Doing well after her right Cubital tunnel release and submuscular transposition. I removed the sutures. We talked about gentle range of motion of the elbow and avoiding lifting with the hand along with wrist splinting. I fit her for a wrist splint. I removed the sutures today and discussed wound care. We discussed my theory and practical application of scar massage including mechanical pressure as well as delineating the exercises that I recommend. I will see her in a month to check on her progress. No x-rays will be needed. Not available 06/29/2024 09:23:44 08/05/2024 08/05/2024 Date of Surgery: 06/15/2024 History: Kyle returns 6 weeks after having a right cubital tunnel release and submuscular transposition. Overall she has been doing well. She has not been having pain. her numbness and tingling is substantially better than it was preoperatively. Exam: Pleasant and non-toxic appearing. Her wound is healed very nicely.The hand is well perfused. EPL, FPL, and interossei function is intact. Sensation is intact to the median, radial, and Improved to the ulnar nerve distribution Assessment and plan: Doing well after her right cubital tunnel release and submuscular transposition. I Have encouraged her to work on stretching strengthening and intrinsic recruitment. We talked about this at length. I anticipate that this will continue to improve over the next 6 months. I have asked her to come back to see me if she has any ongoing issues. Not available 08/05/2024 15:43:22 Plan of Treatment Reminders Order Date Submit Date Provider Last Modified By Organization Details Last Modified Time Details Appointments None recorded. Lab None recorded. Referral None recorded. Procedures None recorded. Surgeries None recorded. Imaging None recorded. Medication Orders Percocet 5 mg-325 mg tablet 2024 025 [id number] [facility] [facility], [place], [address], 5 08:18:42 Patient TargetsNo targets recorded. Patient InstructionsNo instructions recorded. Reason for Referral None Reported. Results Created Date Observation Date Name Description Value Unit Range Abnormal Flag Note LastModifiedBy Organization Detail LastModifiedTime 05/05/1905/03/2024 nerve condu ction study /EMG, upper extre mity (PROC ) No observ ation record ed. Not Available 2024 17:13:42 Result Notes None recorded. Problems Name Problem SNOMED Code Status Onset Date Resolution Date Notes Provider Name and Address Organization Details Recorded Time Ulnar nerve entrapment at elbow 102403509 Active 024 Seth Lopez MD [address] [facility],[address], [place], [address], [facility] 4 17:03:07 Problem Notes None recorded. Procedures Surgical History Date Name Laterality Status Provider Name and Address Organization Details Recorded Time 5 Orthopedic Surgery completed Iis Sommer [facility] 06/29/2024 08:14:16 4 Orthopedic Surgery completed Usha Moncada [facility] 02/03/2024 08:59:21 Imaging Results None recorded. Procedure Notes None recorded. Medical Equipment None Reported. Allergies Allergen ID Allergen Name Allergen Category Reaction Reaction Severity Criticality Documentation Date Start Date Code Code System Note Provider Name and Address Organization Details Recorded Time 740131 acetamino phen medicatio n Not available Not available Not available 06/16/2024 161 RxNorm JOE Pompa [address] [facility],[address], [place], [address] , [facility], [facility]. 13:36:40 Medications Name Sig Start Date Stop Date Status Note LastModified by Organization Details LastModified Time amoxicillin 500 mg capsule TAKE 1 CAPSULE BY MOUTH THREE TIMES DAILY FOR 7 DAYS 04/15 completed Not Available Not Available Not Available lamotrigine 150 mg tablet TAKE 1 TABLET BY MOUTH AT BEDTIME 12/31 completed Not Available Not Available Not Available nystatin 100,000 unit/mL oral suspension TAKE 4ML IN MOUTH/THR OAT FOUR TIMES A DAY FOR 14 DAYS 12/31 completed Not Available Not Available Not Available clonidine HCl 0.1 mg tablet TAKE 1 TABLET BY MOUTH THREE TIMES DAILY NEEDED active Not Available Not Available No t Available lamotrigine 200 mg tablet TAKE 1 TABLET BY MOUTH EVERY DAY AT BEDTIME active Not Available Not Available No t Available haloperidol 5 mg tablet TAKE 1 TABLET BY MOUTH THREE TIMES DAILY active Not Available Not Available No t Available divalproex 250 mg tablet,yin yed release TAKE 1 TABLET BY MOUTH IN THE MORNING AND 3 TABLETS IN THE EVENING FOR A TOTAL DOSE OF 750 MG active Not Available Not Available No t Available Stool Softener 100 mg capsule TAKE 1 CAPSULE BY MOUTH TWICE DAILY 04/15 completed Not Available Not Available Not Available ibuprofen 800 mg tablet TAKE 1 TABLET BY MOUTH EVERY 6 TO 8 HOURS NEEDED active Not Available Not Available No t Available ofloxacin 0.3 % eye drops INSTILL 2 DROPS INTO EACH EYE THREE TIMES DAILY FOR 1 WEEK 04/15 completed Not Available Not Available Not Available doxepin 25 mg capsule TAKE 1 CAPSULE BY MOUTH ONCE DAILY AT NIGHT AT BEDTIME 08/05 completed Not Available Not Available Not Available sumatriptan 100 mg tablet TAKE 1 TABLET BY MOUTH NEEDED AT MIGRAINE ONSET. MAY REPEAT IN 2 HOURS IF NEEDED. MAX 2/DAY OR 4/WEEK active Not Available Not Available No t Available dextroamphe tamine-amph etamine 10 mg tablet TAKE 1 TABLET BY MOUTH TWICE DAILY active Not Available Not Available No t Available clonazepam 0.5 mg tablet TAKE 1 TABLET BY MOUTH TWICE DAILY 04/15 completed Not Available Not Available Not Available spironolact one 100 mg tablet TAKE 1 TABLET BY MOUTH ONCE DAILY, STOP IF 08/05 completed Not Available Not Available Not Available gabapentin 400 mg capsule TAKE 1 CAPSULE BY MOUTH THREE TIMES DAILY active Not Available Not Available No t Available clonazepam 1 mg tablet TAKE 1 TABLET BY MOUTH TWICE DAILY. TAKE AN ADDITIONA L 1MG PER DAY IF NEEDED FOR ANXIETY active Not Available Not Available No t Available hydroxyzine pamoate 50 mg capsule TAKE 1 CAPSULE BY MOUTH THREE TIMES DAILY NEEDED FOR SLEEP OR ANXIETY active Not Available Not Available No t Available hydroxyzine HCl 50 mg tablet TAKE 1 TABLET BY MOUTH 4 TIMES DAILY 04/15 completed Not Available Not Available Not Available melatonin 3 mg tablet TAKE 2 TABLETS BY MOUTH AT BEDTIME FOR INSOMNIA active Not Available Not Available No t Available spironolact one 25 mg tablet TAKE 4 TABLETS BY MOUTH ONCE DAILY 08/05 completed Not Available Not Available Not Available lamotrigine 25 mg tablet TAKE 2 TABLETS BY MOUTH ONCE DAILY FOR BIPOLAR active Not Available Not Available No t Available lorazepam 0.5 mg tablet 12/31 completed Not Available Not Available Not Available dextroamphe tamine-amph etamine ER 20 mg 24hr capsule,ext end release TAKE 1 CAPSULE BY MOUTH IN THE MORNING. DO NOT CRUSH OR CHEW 08/05 completed Not Available Not Available Not Available haloperidol 10 mg tablet TAKE 1 TABLET BY MOUTH TWICE DAILY 04/15 completed Not Available Not Available Not Available perphenazin e 4 mg tablet TAKE 1 TABLET BY MOUTH TWICE DAILY active Not Available Not Available No t Available gabapentin 300 mg capsule TAKE 1 CAPSULE BY MOUTH TWICE DAILY FOR ANXIETY 04/15 completed Not Available Not Available Not Available dextroamphe tamine-amph etamine ER 10 mg 24hr capsule,ext end release TAKE 1 CAPSULE BY MOUTH TWICE DAILY DO NOT CRUSH OR CHEW 12/31 completed Not Available Not Available Not Available mirtazapine 15 mg tablet 04/15 completed Not Available Not Available Not Available ibuprofen 600 mg tablet 04/15 completed Not Available Not Available Not Available albuterol sulfate HFA 90 mcg/actuati on aerosol inhaler active Not Available Not Available Not Available perphenazin e 8 mg tablet TAKE 1 TABLET BY MOUTH TWICE DAILY TAKE WITH 16 MG TABLET FOR TOTAL DOSE OF 24 MG active Not Available Not Available No t Available Percocet 5 mg-325 mg tablet Take 1 tablet every 4-6 hours by oral route for 6 days. 06/29 completed Not Available Not Available Not Available sertraline 50 mg tablet TAKE 1 TABLET BY MOUTH IN THE MORNING 04/15 completed Not Available Not Available Not Available lamotrigine 100 mg tablet TAKE 1 TABLET BY MOUTH EVERY DAY AT BEDTIME active Not Available Not Available No t Available loratadine 10 mg tablet TAKE 1 TABLET BY MOUTH ONCE DAILY active Not Available Not Available No t Available nortriptyli ne 50 mg capsule TAKE 2 CAPSULES BY MOUTH ONCE DAILY AT NIGHT AT BEDTIME active Not Available Not Available No t Available perphenazin e 16 mg tablet TAKE 1 TABLET BY MOUTH TWICE DAILY WITH 8MG TABLET FOR A TOTAL DOSE OF 24MG active Not Available Not Available No t Available oxycodone 5 mg tablet TAKE 1 TABLET BY MOUTH EVERY 4 TO 6 HOURS 08/05 completed Not Available Not Available Not Available aripiprazol e 10 mg tablet 12/31 completed Not Available Not Available Not Available aripiprazol e 15 mg tablet TAKE 1 TABLET BY MOUTH ONCE DAILY AT BEDTIME active Not Available Not Available No t Available levocetiriz ine 5 mg tablet TAKE 1 TABLET BY MOUTH ONCE DAILY active Not Available Not Available No t Available melatonin 5 mg tablet TAKE 2 TABLETS BY MOUTH AT BEDTIME 04/15 completed Not Available Not Available Not Available Ajovy 225 mg/1.5 mL subcutaneou s auto-inject or INJECT 1 PEN SUBCUTANE OUSLY ONCE MONTHLY active Not Available Not Available No t Available Tab-A-Tesfaye 400 mcg tablet TAKE 1 TABLET BY MOUTH ONCE DAILY 04/15 completed Not Available Not Available Not Available Vitals Date Recorded Body height Body mass index (BMI) Body weight Provider Name and Address Organization Details Last Updated DateTime 06/03/2024 177.8 cm 32.4 kg/m2 586193.88 kailee Allan [facility] 06/03/2024 14:53:36 Date Recorded Body height Body mass index (BMI) Body weight Provider Name and Address Organization Details Last Updated DateTime 06/29/2024 177.8 cm 32.4 kg/m2 234670.88 kailee Sommer [facility] 06/29/2024 08:18:32 Date Recorded Body height Body mass index (BMI) Body weight Provider Name and Address Organization Details Last Updated DateTime 08/05/2024 177.8 cm 32.4 kg/m2 652438.88 g Isi Kemal [facility] 08/05/2024 15:25:45 Social History Question Answer Notes LastModified by Organizat ion Details LastModified Time Tobacco Smoking Status Current Every Day Smoker Isi Kemal nesbitt [facility] 12/02/2023 09:25:51 Do You Have An Advance Directive? No [email or web address] Information not available 12/02/2023 Do You Use Recreational Drugs? No [email or web address] Information not available 06/03/2024 Who Do You Live With? Mom And Sister [email or web address] Information not available 06/03/2024 What Type Of Work Do You Do? 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 No Information not available 06/03/2024 In The Last 30 Days Have You Been Prescribed A Benzodiazepine? No [email or web address] Information not available 06/03/2024 Do You Have A Prior History Of Opioid Misuse Disorder? No [email or web address] Information not available 06/03/2024 Do You Have A Medical Power Of Pleating Supervisor? No [email or web address] Information not available 12/02/2023 What Was The Date Of Your Most Recent Tobacco Screening? 08/05/2024 [email or web address] Information not available 08/05/2024 Sex: Unknown Functional Status Question Answer Note LastModified by Organization D etails LastModified Time Do you or have you ever used any other forms of tobacco or nicotine? No Information not available 12/02/2023 What is your level of alcohol consumption? None [email or web address] Information not available 12/02/2023 Mental Status None recorded. Family History Relationship Description Onset Age of this Age Resolved Age Notes LastModified by Organization Details LastModified Time Father No current problems or disability [email or web address] Not available 12/31 10:21:43 Mother No current problems or disability [email or web address] Not available 12/31 10:21:43 Medical History Condition Response Anxiety/Depression Y High Blood Pressure N Cancer: Please indicate type N Mental Illness Y Cholesterol N Diabetes N Complications from anesthesia N Sleep Apnea N Gynecological HistoryNo gynecological history recorded. Obstetrics History GPAL:G 0 P 0 0 0 0 Past Encounters Encounter ID Performer Location Encounter Start Date Encounter Closed Date Diagnosis/Indication Diagnosis SNOMED-CT Code Diagnosis ICD10 Code Diagnosis IMO Codes Diagnosis Note [id number] Seth Lopez MD [address] [address] 12/02/2023 09:01:02 12/02/2023 09:38:19 Pain of right wrist 1229252384 35684 M25.020 [id number] Dejan Russell MD [address] [address] 12/30/2023 09:14:49 12/30/2023 09:42:55 Ulnar neuropathy of right arm 6910965494 22770 G56.21 [id number] Seth Lopez MD [address] [address] 01/01/2024 10:10:44 01/01/2024 10:37:30 Pain of right wrist 8504407796 27348 M25.050 [id number] Seth Lopez MD [address] [address] 01/20/2024 08:43:33 01/28/2024 10:20:14 Ulnar nerve entrapment at elbow 429837483 G56.21 [id number] JOE Pompa [address] [address] 02/03/2024 08:47:01 02/03/2024 09:13:48 Ulnar nerve entrapment at elbow 393914314 G56.21 [id number] Seth Lopez MD [address] [address] 04/15/2024 08:24:49 04/15/2024 08:42:24 Ulnar nerve entrapment at elbow 360191743 G56.21 [id number] Dejan Russell MD [address] [place] [address] 05/03/2024 15:19:05 05/03/2024 15:40:12 Ulnar neuropathy of right arm 9181514165 68902 G56.21 [id number] Seth Lopez MD [address] [place] [address] 06/03/2024 14:44:14 06/03/2024 15:22:14 Ulnar nerve entrapment at elbow 994438069 G56.21 [id number] Seth Lopez MD [facility] [address] [place] [address] 06/15/2024 07:01:27 06/21/2024 11:43:23 Ulnar nerve entrapment at elbow 054745950 G56.21 [id number] Seth Lopez MD [address] [place] [address] 06/29/2024 08:07:47 06/29/2024 08:24:06 Ulnar nerve entrapment at elbow 657142477 G56.21 [id number] Seth Lopez MD [address] [address] 08/05/2024 15:16:24 08/05/2024 15:34:39 Ulnar nerve entrapment at elbow 797102206 G56.21 Health Concerns Section Related Observation LastModified by Organization Detai ls LastModified Time None Recorded Concern Status LastModified by Organization Details LastModified Time None Recorded Advance Directives Directive N: Payers Insurance Date Sequence Insurance Name Policy Number Policy Luis Covered Member ID Luis Member ID Guarantor Name 06/23/2024 2 [place] [employer] [place]) [id number] Boubacar Sterry [id number] Boubacar Sterry 08/12/2024 1 [place] [employer] [place] [id number] Boubacar Sterry [id number] Boubacar Sterry OBGyn Episode No OBEpisode recorded.
--- OUTSIDE RECORDS SUMMARY | 2024-12-23 18:37 | XMS_ITS | Patient Health Record ---
Author Organization [facility] [address] [place] [address] Location Address [address] [place] [phone] Care Team Providers Care Electroneurodiagnostic Technician Name Role Phone Pranay BASS, Zaria Primary Care Provider Unavailab remigio Calderon NP, Jessica Unavailable [phone] Nay SCHAEFER, Rowena Unavailable Unavailable Allergies Allergen (clinical drug ingredient) Drug/Non Drug Allergy documented on EMR Reaction Allergy Type Onset Date Status acetaminophen ACETAMINOPHEN Unknown Drug Allergy 5 Active azithromycin AZITHROMYCIN Unknown Drug Allergy 11/15/2014 Active citalopram CELEXA Unknown Drug Allergy 11/15/2014 Activ e Substance with sulfonamide structure and antibacterial mechanism of action (substance) Sulfa Antibiotics Unknown Drug Allergy Active Reason For Referral No Information Medications Medication SIG (Take, Route, Frequency, Duration) Notes Start Date End Date Status Melatonin Active Albuterol Sulfate No t-Taking Adderall XR 10 MG 1 capsule in the mor ivett Orally Once a day Active Ajovy 225 MG/1.5ML 1 pen Subcutaneous Monthly; Duration: 90 days Active Imitrex 100 MG 1 tablet Orally As needed at migraine onset. May repeat in 2 hours if needed. Max 2/day or 4/week.; Duration: 30 days Active Stool Softener Activ e Senna Not-Taking Perphenazine Active Gabapentin 400 MG 1 capsule Oral Four times a day 11/15/2014 Active Haldol Active Nortriptyline HCl 50 MG 2 capsule Orally Once a day; Duration: 30 days Active Spironolactone 50 MG 1 tablet Orally Onc e a day Active Depakote 250 MG 1 tablet Orally Twic e a day Active lamoTRIgine 200 MG 1 tablet Orally at night Active Vistaril Active KlonoPIN 1 MG 1 tablet Orally twic e a day plus 1 tablet PRN Active Doxepin HCl Active Xyzal Active ZyrTEC Active Social History Sex Assigned At : Social History Observation Description Sex Assigned At Female Section Notes: Quit smoking (3 days ago) Quit marijuana 2 months ago Occasional ETOH (socially) Living with mother, brother, imqqpj-[id number]-rwi and nephew Out of work due to her mental health, will be starting work in the [employer] in December Not smoking Quit marijuana 2 months ago Occasional ETOH (socially) Living with mother, brother, [id number]-jgf and nephew 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 Not smoking Quit marijuana 2 months ago Occasional ETOH (socially) Living with mother, brother, [id number]-[id number] and nephew 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 Not smoking Quit marijuana 2 months ago Occasional ETOH (socially) Living with mother, brother, [id number] and nephew Will be starting work at [employer] Trying to quit smoking (using nicotineless vape) and down to 6 cigarettes daily Marijuana Rare Living family Working at [employer] Smoking 1ppd Marijuana Rare ETOH Living family Working at [employer] Smoking 1ppd Marijuana Rare ETOH Living family Working at [employer] Smoking 1ppd Marijuana Rare ETOH Living family Working at [employer] Smoking 1ppd Marijuana Rare ETOH Living family Working at [employer] Smoking 1ppd Marijuana Rare ETOH Living family Working at [employer] Smoking 1ppd Marijuana Rare ETOH Living family Working at [employer] Smoking 1ppd Marijuana Rare ETOH Living family Working at [employer] Smoking 1ppd Marijuana Rare ETOH Living family Working at [employer] Smoking 1ppd Marijuana Rare ETOH Living family Working at [employer] Problems Problem Type SNOMED Code ICD Code Onset Dates Problem Status W/U Status Risk Notes Problem Postconcussion syndrome (41153188) Post concussion syndrome (F07.81) Active confirmed Problem Sleep disturbance (58494747) Sleep disturbance (G47.9) Active confirmed Problem Lesion of ulnar nerve (805038486) 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) Active confirmed Problem Chronic daily headache (205895283860142) Chronic daily headache (R51.9) Active confirmed Problem Migraine without aura, not refractory (disorder) (727686435) Migraine, unspecified, not intractable, without status migrainosus (G43.909) 5 Active confirmed Problem Seizure (24204716) Unspecified convulsions (R56.9) 5 Active confirmed Vital Signs Heart Rate 96 /min 07/13/2024 Oximetry 96 % 07/13/2024 Blood pressure diastolic 76 mm Hg 07/13/2024 Blood pressure systolic 104 mm Hg 07/13/2024 Encounters Encounter Location Date Provider Diagnosis [facility] [address] [place] [address] [place] [phone] 01/27/2024 Jessica Calderon NP Migraine, unspecified, not intractable, without status migrainosus G43.909 ; Sleep disturbance G47.9 and Ulnar neuropathy at elbow of right upper extremity G56.[address] Location [address] [place] [phone] 07/13/2024 Jessica Calderon NP Migraine, unspecified, not intractable, without status migrainosus G43.909 ; Sleep disturbance G47.9 and Ulnar neuropathy at elbow of right upper extremity G56.[address] Location [address] [place] [phone] 07/14/2024 Jessica Calderon NP [address] Location [address] [place] [phone] 03/02/2024 Jessica Calderon NP Migraine, unspecified, not intractable, without status migrainosus G43.[address] [phone] 03/10/2024 Jessica Calderon NP [address] [phone] 04/04/2024 Jessica Calderon NP Assessments Encounter Date Diagnosis (ICD Code) Assessment Notes Treatment Notes Treatment Clinical Notes Section Notes 01/27/2024 Migraine, unspecified, not intractable, without status migrainosus (ICD-10 - G43.909) Stable overall with Ajovy monthly and Nortripytline 50mg qhs, aborting with Imitrex PRN. Medication effects and side effects discussed with patient, verbalizes understanding. Instructed to call if symptoms persist or increase in severity. Discussed with patient importance of staying hydrated, limiting use of OTC medication, practicing good sleep hygiene and keeping track of headache frequency and intensity. 03/02/2024 Migraine, unspecified, not intractable, without status migrainosus (ICD-10 - G43.909) 07/13/2024 Migraine, unspecified, not intractable, without status migrainosus (ICD-10 - G43.909) Controlled with Ajovy monthly and Nortripytline 100mg qhs (per psych). Aborting with Imitrex PRN. Medication effects and side effects discussed with patient, verbalizes understanding. Instructed to call if symptoms persist or increase in severity. Discussed with patient importance of staying hydrated, limiting use of OTC medication, practicing good sleep hygiene and keeping track of headache frequency and intensity. 07/13/2024 Sleep disturbance (ICD-10 - G47.9) Followed by psych, [facility] and sleep medicine. Improvement to sleep with current regimen. Discussed with the patient sleep hygiene: Make sure you have 8 hours of sleep in the bed. The room has to be dark and on the colder side. The bed has to be made. Make sure that no food or drinks, reading or TV is done in bed. Avoid heavy meals before bedtime and consider a brisk walk before you plan to retire to bed. Consider Chamomile tea. 01/27/2024 Sleep disturbance (ICD-10 - G47.9) Followed by psych (looking for new provider), [facility] and consulted with sleep medicine. She has failed other sleep meds and was recommended to speak with [facility] skilled nursing case manager about a new psychiastrist to help with sleep. Discussed with the patient sleep hygiene: Make sure you have 8 hours of sleep in the bed. The room has to be dark and on the colder side. The bed has to be made. Make sure that no food or drinks, reading or TV is done in bed. Avoid heavy meals before bedtime and consider a brisk walk before you plan to retire to bed. Consider Chamomile tea. 01/27/2024 Ulnar neuropathy at elbow of right upper extremity (ICD-10 - G56.21) S/p release, followed by Ortho. On Gabapentin 400mg QID. Follow up in 6 months. Patient states she understands and agrees with the current treatment plan. 07/13/2024 Ulnar neuropathy at elbow of right upper extremity (ICD-10 - G56.21) S/p release and now repositioning via Ortho. On Gabapentin 400mg QID. Follow up in 6 months. Patient states she understands and agrees with the current treatment plan. 01/27/2024 Other The natural history of the diseases was fully discussed with the patient. We also discussed side effects of medications including effect on driving and operating heavy machinery. We also discussed the impact of environmental and stress factor in neurological disease and literature given. All questions were answered. Judy Clark generated this medical record electronically to insure patient-safety and prompt feedback to the referring doctor. Kindly excuse any grammatical or typographical errors. 07/13/2024 Other The natural history of the diseases was fully discussed with the patient. We also discussed side effects of medications including effect on driving and operating heavy machinery. We also discussed the impact of environmental and stress factor in neurological disease and literature given. All questions were answered. Judy Amber generated this medical record electronically to insure patient-safety and prompt feedback to the referring doctor. Kindly excuse any grammatical or typographical errors. Plan Of Treatment Next Appt Details Provider Name:Jessica carpio [employer]ICYL[employer] ACID BLENDER, 01/11/2025 08:00:00 AM, [address] [place], [phone], Insurance Providers Payer Name Payer Address Payer Phone Subscriber Number Group Number Insured Name Patient Relationship to Insured Coverage Start Date Coverage End Date [facility] [address] [place] [address] [id number] [id number] HELMS Self - patient is the insured Medical (General) History Medical History History ICD Code Migraine Seizure activity disorder Paranoid schizophrenia Bipolar I PTSD Anxiety Panic Disorder Asthma Allergies (Environmental) Seasonal Depression IBS Endometriosis Insomnia DDD COVID RSV Ulnar Neuropathy Insomnia Surgical History Surgery Date(Month/Year) Endometrisis PAST SurgHX 10/2014 Appendectomy PAST SurgHX 10/2014 right ulnar
--- OUTSIDE RECORDS SUMMARY | 2024-12-23 18:37 | XMS_ITS | Clinical Summary ---
Author Organization [facility] Address [facility] [place] [address] Care Team Providers Care Community Engagement Coordinator Name Role Phone None Primary Care Provider Unavailabl e Allergies Active Allergy Reactions Criticality Noted Date Comments Acetaminophen 05/21/2017 Hives, vomiting Amoxicillin-Pot Clavulanate Other (See Comments) 11/13/2018 Diarrhea, Nausea, Yeast infection Azithromycin 05/21/2017 Joint swelling, rash Citalopram 04/22/2019 Latex 04/22/2019 Nickel 04/22/2019 Sulfasalazine 05/21/2017 hives Medications albuterol 90 mcg/actuation HFA Aerosol Inhaler Inhale 90 g into the lungs daily as needed. 11/11/2018 Active ARIPiprazole (Abilify) 15 mg Tablet Take 15 mg by mouth daily. 04/16/2019 Active gabapentin (Neurontin) 300 mg Capsule Take 300 mg by mouth daily. 03/28/2019 Active lamoTRIgine (LaMICtal) 150 mg Tablet Take 150 mg by mouth daily. 04/16/2019 Active nortriptyline (PAMELOR) 50 mg Capsule Take 50 mg by mouth daily. 04/09/2019 Active ondansetron ODT (Zofran-ODT) 4 mg Tablet, Rapid Dissolve Take 4 mg by mouth as needed. 11/30/2018 Active zolpidem (Ambien) 5 mg Tablet Take 5 mg by mouth as needed. 04/14/2019 Active albuterol 90 mcg/actuation HFA Aerosol Inhaler Inhale 2 puffs into the lungs every 4 hours as needed for Wheezing. 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 Immunizations Immunization Administration Dates Next Due HPV 9-Valent (Gardasil 9) 01/29/2021,09/27/2020, 07/26/2020 Tdap (Adacel, Boostrix) 05/10/2019 Social History Tobacco Use Types Packs/Day Years Used Date Smoking Tobacco: Every Day Cigarettes Smokeless Tobacco: Never Comments No Sex and Gender Information Value Date Recorded Sex Assigned at Not on file Legal Sex Female 8:46 AM EDT Gender Identity Not on file Sexual Orientation Not on file Last Filed Vital Signs Vital Sign Reading Time Taken Comments Blood Pressure 110/64 05/10/2019 9:11 AM EST Pulse 84 05/10/2019 9:11 AM EST Temperature 36.9 C (98.5 F) 05/10/2019 9:11 AM EST Respiratory Rate - - Oxygen Saturation 97% 05/10/2019 9:11 AM EST Inhaled Oxygen Concentration - - Weight 108.9 kg (240 lb) 05/10/2019 9:11 AM EST Height 177.8 cm (5' 10 ) 05/10/2019 9:11 AM EST Body Mass Index 34.44 05/10/2019 9:11 AM EST Plan of Treatment Health Maintenance Due Date Last Done Comments HIV screen 2004 Hepatitis C Screening 2004 Hepatitis B vaccine (0-59 yr s) and Risk (1) 2005 Lipid Screening 05/09/2024 05/10/2019 Covid-19 Vaccine (3 - 2024-2 6 season) 2024 05/20/2020, 04/29/2020 Influenza (Flu) vaccine (1 o f 1 - Influenza standard series) 11/08/2024 HPV test 07/26/2025 07/26/2020 (Report in eDH) PAP Smear 07/26/2025 07/26/2020 (Report in e[facility]) Tetanus/Diphtheria/Pertussis Vaccines (2 - Td or Tdap) 05/09/2029 05/10/2019 HPV vaccine Completed 01/29/2021, 0703/2020, 07/26/2020 Procedures Procedure Name Priority Date/Time Associated Diagnosis Comments LIPID PANEL (REFLEX DIRECT LDL) Routine 05/10/2019 9:51 AM EST Annual physical exam from Last 3 Months or Most Recently Relevant to Health Maintenance Results * Lipid Panel (Reflex Direct LDL) (05/10/2019 9:51 AM EST) Cholesterol, Total 124 mg/dL [facility] Comment: Lower Risk: <200 mg/dL Average Risk: 200-239 mg/dL Higher Risk: >yg=243 mg/dL Triglyceride 40 mg/dL [facility] Comment: Average Risk/Lower Risk: <150 mg/dL Borderline High Risk: 150-199 mg/dL High Risk: 200-499 mg/dL Very High Risk: >mr=124 mg/dL HDL Cholesterol 29 mg/dL [facility] Comment: Males: Higher Risk: <40 mg/dL Females: HIgher Risk: <50 mg/dL LDL Cholesterol 87 mg/dL [facility] Comment: Lowest Risk: <100 mg/dL Lower Risk: 100-129 mg/dL Borderline High Risk: 130-159 mg/dL High Risk: 160-189 mg/dL Very High Risk: >rb=791 mg/dL Cholesterol/HDL Ratio 4.3 ratio [facility] Lipid Interpretation See Note [facility] Comment: Lipid management should be guided by a patient s ASCVD risk, goals and preferences. ACC/AHA Guidelines recommend high intensity statin if clinical ASCVD or LDL greater than or equal to 190 mg/dL. http://tinyurl.com/CAK-AFV-Olhgdfcir Adults aged 40-75 with LDL 70-189 mg/dL should have their 10 year ASCVD risk estimated with the ACC/AHA ASCVD risk estimator printing plate making http://tools.acc.org/LKKHE-Uxdi-Suqoskqgm/ Statin should be discussed if risk greater than or equal to 7.5% in non-diabetics. With diabetes, moderate intensity statin is recommended if risk less than 7.5%, high intensity if risk greater than or equal to 7.5%. Annual lipid monitoring on statins is not necessary. Evaluate secondary causes of Triglycerides greater than 500 mg/dL or LDL greater than 190 mg/dL: See table 6 of ACC/AHA Guideline. Lifestyle modification is a critical component of ASCVD risk reduction. Blood specimen (specimen) 05/10/2019 9:51 AM EST 05/10/2019 3:04 PM EST Narrative Resulting Agency Comment Spec In Lab us Delisa Acuña [employer]MI[employer] ORDER[employer]LES F inal Result [facility] [place] [address] from Last 3 Months or Most Recently Relevant to Health Maintenance Insurance [facility] Care Teams Community Engagement Coordinator Relationship Specialty Start Date End Date None None PCP - General 03/19/24
--- OUTSIDE RECORDS SUMMARY | 2024-12-23 18:37 | XMS_ITS | Encounter Summary ---
Author Organization [facility] Address [address] [place] [address] Phone Care Team Providers Care Drawer Liner Name Role Phone Zaria Pires MD Primary Care Provider [phone] Encounter Details Date Type Department Care Team (Latest Contact Info) Description 12/22/2024 Travel Social History Tobacco Use Types Packs/Day Years Used Date Smoking Tobacco: Every Day Cigarettes Smokeless Tobacco: Never Comments Unknown Sex and Gender Information Value Date Recorded Sex Assigned at Female 09/06/2022 3:36 PM EDT Legal Sex Female 9:32 AM EDT Gender Identity Female 09/06/2022 3:36 PM EDT Sexual Orientation Lesbian 09/06/2022 3: 36 PM EDT documented as of this encounter Functional Status * Are you [...] Moderate Risk 12/22/2024 9:51 PM EDT Bessie Mckeon MSW * Suicidal Ideation Question Answer Date of Assessment Author 1. Wish to be (Lifetime) Yes 12/22/2024 9:51 PM EDT Bessie Mckeon MSW 2. Non-Specific Active Suicidal Thoughts (Lifetime) Yes 12/22/2024 9:51 PM EDT Bessie Mckeon MSW 3. Active Suicidal Ideation with any Methods (Not Plan) Without Intent to Act (Lifetime) Yes 12/22/2024 9:51 PM EDT Deandra Mckeon MSW 4. Active Suicidal Ideation with Some Intent to Act, Without Specific Plan (Lifetime) Yes 12/22/2024 9:51 PM EDT Deandra Mckeon TRAFFIC OFFICER 5. Active Suicidal Ideation with Specific Plan and Intent (Lifetime) Yes 12/22/2024 9:51 PM EDT Deandra Mckeon, TRAFFIC OFFICER 1. Wish to be (Past 1 Month) No 12/22/2024 9:51 PM EDT Deandra Mckeon TRAFFIC OFFICER 2. Non-Specific Active Suicidal Thoughts (Past 1 Month) No 12/22/2024 9:51 PM EDT Deandra Mckeon TRAFFIC OFFICER 3. Active Suicidal Ideation with any Methods (Not Plan) Without Intent to Act (Past 1 Month) No 12/22/2024 9:51 PM EDT Deandra Mckeon MSW 4. Active Suicidal Ideation with Some Intent to Act, Without Specific Plan (Past 1 Month) No 12/22/2024 9:51 PM EDT Deandra Mckeon MSW 5. Active Suicidal Ideation with Specific Plan and Intent (Past 1 Month) No 12/22/2024 9:51 PM EDT Piquette, Deandra andree, TRAFFIC OFFICER * Intensity of Ideation Question Answer Date of Assessment Author Most Severe Ideation Rating (Lifetime) 5 12/22/2024 9:51 PM EDT Piquette, Kristenmarie, TRAFFIC OFFICER Frequency (Lifetime) 4 12/22/2024 9:51 PM E DT Piquette, Kristenmarie, TRAFFIC OFFICER Duration (Lifetime) 5 12/22/2024 9:51 PM ED T Piquette, Kristenmarie, TRAFFIC OFFICER Controllability (Lifetime) 3 12/22/2024 9:5 1 PM EDT Piquette, Kristenmarie, TRAFFIC OFFICER Deterrents (Lifetime) 4 12/22/2024 9:51 PM EDT Piquette, Kristenmarie, TRAFFIC OFFICER Reasons for Ideation (Lifetime) 4 9:51 PM EDT Piquette, Kristenmarie, TRAFFIC OFFICER Description of Most Severe Ideation (Past 1 Month) denies SI 12/22/2024 9:51 PM EDT Piquette, Kristenmarie, TRAFFIC OFFICER Deterrents (Past 1 Month) 0 12/22/2024 9:51 PM EDT Piquette, Kristenmarie, TRAFFIC OFFICER Reasons for Ideation (Past 1 Month) 0 12/22/2024 9:51 PM EDT Piquette, Kristenmarie, TRAFFIC OFFICER * Suicidal Behavior Question Answer Date of Assessment Author Actual Attempt (Lifetime) Yes 12/22/2024 9:51 PM EDT Piquette, Kristenshajiie, TRAFFIC OFFICER Has subject engaged in non-suicidal self-injurious behavior? (Lifetime) Yes 12/22/2024 9:51 PM EDT Piquette, Kriste karmene, TRAFFIC OFFICER Interrupted Attempts (Lifetime) No 12/22/2024 9:51 PM EDT Piquette, Deandra andree, TRAFFIC OFFICER Aborted or Self-Interrupted Attempt (Lifetime) No 12/22/2024 9:51 PM EDT Piquette, Deandra andree, TRAFFIC OFFICER Preparatory Acts or Behavior (Lifetime) No 12/22/2024 9:51 PM EDT Deandra Mckeon MSW Actual Attempt (Past 3 Months) No 12/22/2024 9:51 PM EDT Bessie Mckeon MSW Has subject engaged in non-suicidal self-injurious behavior? (Past 3 Months) No 12/22/2024 9:51 PM EDT Ángel Mckeon MSW documented as of this encounter Mental Status * Because of a physical, mental, or emotional condition, do you have serious difficulty concentrating, remembering, or making decisions? Answer Entry Date Author No 03/10/2024 5:59 PM EST Mychart, Generic documented in this encounter Plan of Treatment Not on file documented as of this encounter Visit Diagnoses Not on filedocumented in this encounter Additional Health Concerns Infection Onset Date Last Indicated Resolved Time Covid Possible 12/22/2024 12/22/2024 12/22/2024 10 :29 PM EDT documented as of this encounter Care Teams Drawer Liner Relationship Specialty Start Date End Date Zaria Pires MD [address] [place] [phone] PCP - General Internal Medicine 02/08/24 documented as of this encounter
--- OUTSIDE RECORDS SUMMARY | 2024-12-23 18:37 | XMS_ITS | Clinical Summary ---
Author Organization Shayla Espino [facility] Address [address] [place], [place] [id number] Care Team Providers Care Brick Cleaner Name Role Phone Rowena Tee NP Primary Care Provider [phone] Rowena Tee NP Unavailable [phone] Allergies Active Allergy Reactions Criticality Noted Date Comments Acetaminophen Diarrhea,Hives,Nause a And Vomiting,Other (See Comments) Medium 03/10/2005 Hives, vomiting Hives, vomiting Amoxicillin-Pot Clavulanate GI Intolerance,Other (See Comments) 11/13/2018 Diarrhea, Nausea, Yeast infection Diarrhea, Nausea, Yeast infection Azithromycin Hives,Swelling Medium 05/21/2017 Joint swelling, rash Joint swelling, rash Banana Other (See Comments) 03/10/2005 Citalopram Hallucinations 04/22/2019 Seizure-like activity disorder Clindamycin Hives 08/31/2020 Kiwi Itching 03/10/2005 Latex Hives,Itching,Rash Medium 03/10/2005 Lettuce Diarrhea 03/10/2005 Nickel Hives,Itching,Rash Medium 03/10/2005 Sulfa (Sulfonamide Antibiotics) Hives,Swelling Medium 10/22/2019 Sulfasalazine Rash Low 05/21/2017 hives Medications * This document contains information received from the source organization and may not represent a complete record from that organization. nortriptyline (PAMELOR) 50 MG capsule TAKE 1 CAPSULE BY MOUTH ONCE DAILY 1 Active lamoTRIgine 50 mg TR24 Take 25 mg by mouth every morning. Active lamoTRIgine (LaMICtal) 150 MG tablet Take 150 mg by mouth at bedtime. 9 Active gabapentin (NEURONTIN) 300 MG capsule Take 300 mg by mouth at bedtime. 1 Active cetirizine (ZyrTEC) 10 MG tablet 8 Active atomoxetine (STRATTERA) 40 MG capsule Take 40 mg by mouth every morning. 1 Active clonazePAM (KlonoPIN) 1 MG tablet Take 1 mg by mouth as needed. 1 Active traZODone (DESYREL) 100 MG tablet Take 100 mg by mouth as needed. 1 Active multivitamin per tablet 0 Active albuterol HFA (VENTOLIN; PROAIR; PROVENTIL) 90 mcg/actuation aerosol inhaler Inhale 90 g every 4 hours as needed. 9 Active metroNIDAZOLE (METROCREAM) 0.75 % cream Apply to affected area 2 times daily 45 g 8 1 Active ibuprofen 200 mg cap Take 200 mg by mouth as needed. Active loratadine (CLARITIN) 5 mg/5 mL syrup Take 1 mg by mouth as needed. 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 Immunizations Immunization Administration Dates Next Due COVID-19 Vaccine ([email or web address]) Original Formulation (prior to Mar 2021) 05/20/2020,04/29/2020 HPV 9-valent (GARDASIL 9) 01/29/2021,09/27/2020, 07/26/2020 Influenza Vaccine - STANDARD - SDV (FLUZONE/FLUARIX/FLULAVAL/AFLURIA) 05/25/2019 Tdap Vaccine (BOOSTRIX/ADACEL) 05/10/2019 Family History Medical History Relation Comments Diabetes Father Dementia Maternal Grandmother Relation Status Comments Father Alive Maternal Grandmother Social History Tobacco Use Types Packs/Day Years Used Date Smoking Tobacco: Former Smokeless Tobacco: Current Comments:Vape Alcohol Use Standard Drinks/Week Comments Not Currently 0 (1 standard drink = 0.6 oz pur e alcohol) rarely Comments No Sex and Gender Information Value Date Recorded Sex Assigned at Female 04/03/2020 4:42 PM EST Legal Sex Female 4:39 PM EST Gender Identity Female 04/03/2020 4:42 PM EST Sexual Orientation Not on file Occupation Industry Job Start Date Job End Date employed Not on file Not on file Not on file Last Filed Vital Signs Vital Sign Reading Time Taken Comments Blood Pressure 110/60 09/27/2020 1:33 PM EDT Pulse 97 09/27/2020 1:33 PM EDT Temperature 37.3 C (99.2 F) 06/30/2020 1:30 PM EDT Respiratory Rate - - Oxygen Saturation 96% 09/27/2020 1:3 3 PM EDT Inhaled Oxygen Concentration - - Weight 94.3 kg (208 lb) 12/31/2022 12:0 0 AM EDT Legacy value: 208 lbs Height 177.8 cm (5' 10 ) 12/31/2022 12: 00 AM EDT Legacy value: 70 in Body Mass Index 29.84 12/31/2022 12:00 AM EDT Plan of Treatment Health Maintenance Due Date Last Done Comments Blood Pressure 1986 Depression Screening 1990 Hepatitis C Screening 2004 Pap Smear 07/27/2023 07/26/2020 COVID-19 Vaccine (3 - 2024-2 6 season) 2024 05/20/2020, 04/29/2020 Influenza Vaccine (#1) 2024 05/25/2019 Cervical Cancer Screening 07/26/2025 HPV/Cotest 07/26/2025 07/26/2020, 07/26/2020 DTaP,Tdap,and Td Vaccines (2 - Td or Tdap) 05/09/2029 05/10/2019 Meningococcal B Vaccines Aged Out No longer eligible based on patient's age to complete this topic Meningococcal Vaccines Aged Out No lo nger eligible based on patient's age to complete this topic Pneumococcal Vaccine Aged Out No long er eligible based on patient's age to complete this topic Procedures Procedure Name Priority Date/Time Associated Diagnosis Comments LIQUID BASED PAP, CO-TESTING Routine 07/26/2020 1:16 PM EDT Gynecologic exam normal HIGH RISK HPV SCREEN (>30 YEARS) Routine 07/26/2020 1:16 PM EDT Gynecologic exam normal from Last 3 Months or Most Recently Relevant to Health Maintenance Results * High Risk HPV Screen (>30 years) (07/26/2020 1:16 PM EDT) HPV 16 Negative Negative 07/28/2020 2:23 PM EDT [facility] HPV 18 Negative Negative 07/28/2020 2:23 PM EDT [facility] Other High Risk HPV Negative Negative 07/28/2020 2:23 PM EDT [facility] HPV Comment Note: 07/28/2020 2:23 PM EDT [facility] Comment: High Risk types detected by this test: 16, 18, 31, 33, 35, 39, 45, 51, 52, 56, 58, 59, 66, 68. A negative result does not preclude the presence of HPV infection because results depend on adequate specimen collection, absence of inhibitors and sufficient DNA to be detected. Method: Polymerase Chain Reaction, PCR xOther CERVIX UTERI STRUCTURE / Unknown 07/26/2020 1:16 PM EDT 07/28/2020 9:02 AM EDT us Joan Hawkins NP MICROBIOLOGY - GENERAL ORDERAB LES Final Result [address] [id number] * LB PAP Smear, Screen, Co-testing (07/26/2020 1:16 PM EDT) Case Report Gynecologic Cytology Report Case: [id number] Authorizing Provider: Joan Hawkins NP Collected: 07/26/2020 01:16 PM Ordering Location: Department of Gynecology Received: 07/27/2020 08:24 AM First Screen: MEENA Finnegan Specimen: LIQUID-BASED PAP, SCREENING, Cervix 07/31/2020 2:01 PM EDT [facility] Adequacy SATISFACTORY FOR EVALUATION, ENDOCERVICAL/NAIDU SFORMATION ZONE COMPONENT PRESENT 07/31/2020 2:01 PM EDT [facility] Interpretation NEGATIVE FOR INTRAEPITHELIAL LESION / MALIGNANCY. 07/31/2020 2:01 PM EDT [facility] at 1401 EDT Other Findings SHIFT IN VAGINAL PATRICIA SUGGESTIVE OF BACTERIAL VAGINOSIS. ACUTE INFLAMMATION. 07/31/2020 2:01 PM EDT [facility] Clinical Information screening 07/31/2020 2:01 PM EDT [facility] Cyto Gross Description Received 1 ThinPrep preservative fluid collection vial labeled with the patient's name and medical record number or date of . 07/31/2020 2:01 PM EDT [facility] Methods and Disclaimers This specimen was successfully pre-screened using the [employer] Automated ThinPrep Imaging System. Following automated imaging, selected blanchard from the slide were reviewed by a dishwashing machine operator, and if indicated, by a pathologist. Cervicovaginal Cytology ( Pap Smear ) is a screening test with inherent, but low, probability of error, and is intended to aid in the detection of cervical squamous cell carcinoma and its precursors. Although very effective, the false negative rate for the ThinPrep method has been reported in the literature to be approximately 2%. 07/31/2020 2:01 PM EDT [facility] Genital CERVIX UTERI STRUCTURE / Unknown 07/26/2020 1:16 PM EDT 07/27/2020 8:24 AM EDT us Joan Hawkins NP PATHOLOGY/CYTOLOGY ORDERABLES Final Result [address] [id number] from Last 3 Months or Most Recently Relevant to Health Maintenance Insurance [facility] Advance Directives Documents on File Type Date Recorded Patient Email Operations Manager Expl [facility] Care Proxy 06/16/2020 8:26 AM Care Teams Brick Cleaner Relationship Specialty Start Date End Date Rowena Tee NP [address] [place] [address] PCP - General 12/31/22 Rowena Tee NP [address] [place] [address] Nurse Practitioner 08/09/23
--- OUTSIDE RECORDS SUMMARY | 2024-12-23 18:37 | XMS_ITS | Clinical Summary ---
Author Organization [facility] Address [address] [employer] [address] [address] Phone Care Team Providers Care Licensing Manager Name Role Phone Zaria Pires MD Primary Care Provider [phone] Allergies Active Allergy Reactions Criticality Noted Date Comments Azithromycin Hives,Swelling Medium 10/22/2019 Citalopram 04/22/2019 Seizure-like activity disorder Latex Hives Medium 10/22/2019 Nickel Itching Medium 10/22/2019 Sulfa (Sulfonamide Antibiotics) Hives,Swelling Medium 10/22/2019 Acetaminophen Hives,Nausea and/or Vomiting Medium 10/22/2019 Medications atomoxetine (STRATTERA) 18 mg capsule Take 18 mg by mouth daily. Active lamoTRIgine (LAMICTAL XR) 50 mg TR24 Take 25 mg by mouth daily. Active gabapentin (NEURONTIN) 300 MG capsule Take 300 mg by mouth 3 (three) times a day. Active nortriptyline (PAMELOR) 50 MG capsule Take 50 mg by mouth nightly at bedtime. Active lamoTRIgine (LAMICTAL) 150 MG tablet Take 150 mg by mouth daily. Active loratadine (CLARITIN ORAL) Take by mouth. Active haloperidoL (HALDOL) 5 MG tabletIndicatio ns:psychotic disorder Take 5 mg by mouth 2 (two) times a day. Indications: psychotic disorder Active Active Problems No known active problems Social History Tobacco Use Types Packs/Day Years Used Date Smoking Tobacco: Every Day Smokeless Tobacco: Never Alcohol Use Standard Drinks/Week Comments Yes 0 (1 standard drink = 0.6 oz pur e alcohol) Education Answer Date Recorded Are you interested in more education? Not on denilson e 07/13/2022 Are you concerned about learning? Not on file 07/13/2022 No 07/13/2022 No 07/13/2022 Digital Access Answer Date Recorded No 08/06/2022 No 08/06/2022 Reliable internet access at home? Not on file 08/06/2022 Device with a working camera? Not on file Comments Unknown Sex and Gender Information Value Date Recorded Sex Assigned at Not on file Legal Sex Female 9:17 AM EDT Gender Identity Not on file Sexual Orientation Not on file Last Filed Vital Signs Vital Sign Reading Time Taken Comments Blood Pressure 120/80 08/04/2020 9:21 AM EDT Pulse 80 08/04/2020 9:21 AM EDT Temperature 36.8 C (98.2 F) 08/04/2020 9:21 AM EDT Respiratory Rate - - Oxygen Saturation 98% 08/04/2020 9:21 AM EDT Inhaled Oxygen Concentration - - Weight - - Height - - Body Mass Index - - Plan of Treatment Health Maintenance Due Date Last Done Comments DEPRESSION SCREENING 1998 SMOKING Hx and SMOKELESS TOBACCO SCREENING 09/03/1999 HEPATITIS C SCREENING 2004 HIV ONE-TIME SCREENING (18-6 5 YEARS) 2004 PNEUMOCOCCAL VACCINES (0-49 years) (1 of 2 - PCV) 2005 PAP SMEAR 09/03/2007 INFLUENZA VACCINE (#1) 2024 05/25/2019 COVID-19 VACCINE (3 - 2024-2 6 season) 2024 05/20/2020, 04/29/2020 Adult Td,Tdap Booster 05/09/2029 05/10/2019 , 02/20/2011 HEPATITIS A VACCINES Aged Out No long er eligible based on patient's age to complete this topic HIB VACCINES Aged Out No longer eligi ble based on patient's age to complete this topic MENINGOCOCCAL VACCINES (ACWY) Aged Out No longer eligible based on patient's age to complete this topic MENINGOCOCCAL VACCINES (B) Aged Out N o longer eligible based on patient's age to complete this topic Medical Devices Not on file Insurance BLUE CROSS OUT OF STATE PPO BLUE CROSS OUT OF STATE PPO BLUE CROSS OUT OF STATE PPO BLUE CROSS OUT OF STATE PPO BLUE CROSS OUT OF STATE PPO BLUE CROSS OUT OF STATE PPO BLUE CROSS OUT OF STATE PPO BLUE CROSS OUT OF STATE PPO BLUE CROSS OUT OF STATE PPO BLUE CROSS OUT OF STATE PPO BLUE CROSS OUT OF STATE PPO BLUE CROSS OUT OF STATE PPO Care Teams Licensing Manager Relationship Specialty Start Date End Date Zaria Pires MD [address] [place] [id number] PCP - General Infectious Diseases 12/18/23 Additional Source Comments The information contained in this document represents components of the legal health record. It is not the complete legal health record.[facility]
--- OUTSIDE RECORDS SUMMARY | 2024-12-23 18:37 | XMS_ITS | Clinical Summary ---
Author Organization [facility] ystem Address [address] [place] [address] Phone Care Team Providers Care Labor Relations Worker Name Role Phone Zaria Pires MD Primary Care Provider [phone] Allergies Active Allergy Reactions Criticality Noted Date Comments Avocado 12/22/2024 Azithromycin 08/09/2022 Banana Other (see comments) 03/10/2005 Other reaction(s): Other (See Comments) Citalopram 08/09/2022 Clindamycin 08/09/2022 Kiwi Extract Itching 03/10/2005 Latex 07/30/2023 Metronidazole 08/30/2021 Other reaction(s): stiff neck (aseptic meningitis) Nickel 08/09/2022 Sulfa Antibiotics Hives,Swelling,Other (see comments) Medium 10/22/2019 Sulfasalazine Rash Low 05/21/2017 hives hives hives Acetaminophen 08/09/2022 Wild Lettuce Extract (Lactuca Virosa) Diarrhea 03/10/2005 Medications nortriptyline (PAMELOR) 50 MG capsule Take 100 mg by mouth nightly 1 Active spironolactone (ALDACTONE) 100 MG tablet Take 100 mg by mouth daily 2 Active fremanezumab-vf rm (AJOVY) 225 MG/1.5ML solution prefilled syringe injection Inject 225 mg under the skin 1 Active cloNIDine (CATAPRES) 0.1 MG tablet Take 0.1 mg by mouth three times a day 4 Active gabapentin (NEURONTIN) 400 MG capsule Take 400 mg by mouth three times a day Active doxepin (SINEquan) 25 MG capsule Take 25 mg by mouth nightly 5 Active haloperidol (HALDOL) 5 MG tablet Take 5 mg by mouth three times a day 5 Active perphenazine 16 MG tablet Take 16 mg by mouth two times a day Active perphenazine 4 MG tablet Take 4 mg by mouth two times a day Active clonazePAM (KlonoPIN) 1 MG tablet Take 1 mg by mouth two times a day as needed for anxiety Active perphenazine 8 MG tablet Take 8 mg by mouth Active levocetirizine (XYZAL) 5 MG tablet Take 10 mg by mouth every evening 12/24/19 Discontinu ed(Stop Taking at Discharge) lamoTRIgine (LaMICtal) 200 MG tablet Take 200 mg by mouth nightly 5 12/24/19 Discontinu ed(Stop Taking at Discharge) lamoTRIgine (LaMICtal) 25 MG tablet Take 50 mg by mouth daily 12/24/19 Discontinu ed(Stop Taking at Discharge) hydrOXYzine (VISTARIL) 50 MG capsule Take 50 mg by mouth three times a day as needed 5 12/24/19 Discontinu ed(Stop Taking at Discharge) Active Problems Problem Noted Date Diagnosed Date Psychosis, unspecified psychosis type 12/22/2024 Schizoaffective disorder, bipolar type 4 Conversion disorder with seizures or convulsions 08/30/2022 ADHD (attention deficit hype ractivity disorder), inattentive type 03/13/2022 Personality disorder, unspecified 02/08/2022 IBS (irritable bowel syndrome) 05/10/2019 NACHO (generalized anxiety disorder) 05/10/2019 Resolved Problems Problem Noted Date Diagnosed Date Resolved Date Schizophrenia, paranoid 03/10/2024 02/2 08/2024 Schizophrenia, unspecified 06/26/2023 0 05/05/2024 Encounters Date Type Department Care Team Description 12/22/2024 6:11 PM EDT - 12/23/2024 12:49 PM EDT Hospital Encounter [facility] - Emergency Department [address] [place] [address] Seth Pereyra DO Chang, MD Gibson Smyth Daniel, MD Hallucinations (Primary Dx); Encounter for medical screening examination; Psychosis, unspecified psychosis type (CMS/HCC) [F29]; Schizoaffective disorder, bipolar type (CMS/HCC) Discharge Disposition: Home with Behavioral Health Services 12/22/2024 Travel from Last 3 Months Social History Tobacco Use Types Packs/Day Years Used Date Smoking Tobacco: Every Day Cigarettes Smokeless Tobacco: Never Tobacco Cessation:Ready to Q uit: Not Asked; Counseling Given: Not Answered Comments Unknown Sex and Gender Information Value Date Recorded Sex Assigned at Female 09/06/2022 3:36 PM EDT Legal Sex Female 9:32 AM EDT Gender Identity Female 09/06/2022 3:36 PM EDT Sexual Orientation Lesbian 09/06/2022 3: 36 PM EDT Last Filed Vital Signs Vital Sign Reading [...] 14.4 oz) 12/22/2024 5:49 PM EDT Height 177.8 cm (5' 10 ) 06/29/2024 8:21 PM EDT Body Mass Index 38.87 06/29/2024 8:21 PM EDT Plan of Treatment Health Maintenance Due Date Last Done Comments [facility] Topic HIV Screening 1986 [facility] Topic Tdap Vaccine (1 - Tdap) 2005 [facility] Topic Cervical Cancer Screening 07/27/2023 07/26/2020 [facility] Topic Influenza (Flu) Seasonal (#1) 2024 04/07/2024 [facility] Topic Lipid Profile 5 years 04/21/2028 04/21/2023 [facility] Topic Shingrix (1 of 2) 2036 [facility] Topic HPV Vaccines Aged Out 2020, 09/27/2020, 07/26/2020 No longer eligible based on patient's age to complete this topic [facility] Topic Hepatitis C Screening Completed 08/19/2022 [facility] AMB RSV (under 20 months) Aged Out No longer eligible b ased on patient's age to complete this topic [facility] Topic HIB Vaccines Aged Out No longer eligible based on patient's age to complete this topic Procedures Procedure Name Priority Date/Time Associated Diagnosis Comments ECG 12-LEAD STAT 12/23/2024 8:57 AM EDT VALPROIC ACID LEVEL, TOTAL STAT Add-on 12/22/2024 6:45 PM EDT SALICYLATE LEVEL STAT 12/22/2024 6:45 PM EDT ETHANOL STAT 12/22/2024 6:45 PM EDT COMPREHENSIVE METABOLIC PANEL STAT 12/22/2024 6:45 PM EDT CBC WITH AUTO DIFFERENTIAL STAT 12/22/2024 6:45 PM EDT ACETAMINOPHEN LEVEL STAT 12/22/2024 6 :45 PM EDT COVID-19 ([facility]) STAT 12/22/2024 6:41 PM EDT URINE DRUGS OF ABUSE SCREEN STAT 12/22/2024 6:40 PM EDT from Last 3 Months Results * (ABNORMAL) CBC with auto differential (12/22/2024 6:45 PM EDT) WBC 15.5(H) 4.5 - 10.8 10*3 l 12/22/2024 6:59 PM EDT [facility] RBC 4.51 4.20 - 5.40 10*6 l 12/22/2024 6:59 PM EDT [facility] Hemoglobin 15.0 12.0 - 16.0 g/dL 12/22/2024 6:[facility] Hematocrit 44.0 36.0 - 48.0 % 12/22/2024 6:59 PM EDT [facility] MCV 98 81 - 99 fL 12/22/2024 6:59 PM EDT [facility] MCH 33.3 25.4 - 39.0 pg 12/22/2024 6:59 PM [facility] MCHC 34.1 31.0 - 37.0 g/dL 12/22/2024 6:59 PM EDT [facility] RDW 12.7 11.5 - 14.5 % 12/22/2024 6:59 [facility] Platelets 332 150 - 450 10*3 l 12/22/2024 6:59 PM [facility] MPV 8.6 7.0 - 11.0 fL 12/22/2024 6:59 PM [facility] Neutrophils % 72.1 40.0 - 80.0 % 12/22/2024 6:59 PM [facility] Lymphocytes % 20.1 20.0 - 40.0 % 12/22/2024 6:59 PM [facility] Monocytes % 6.4 2.0 - 10.0 % 12/22/2024 6:59 PM [facility] Eosinophils % 0.6(L) 1.0 - 6.0 % 12/22/2024 6:59 PM [facility] Basophils % 0.2 0.0 - 1.0 % 12/22/2024 6:59 PM [facility] Immature Granulocyte % 0.6 0.0 - 0.9 % 12/22/2024 6:59 PM [facility] Neutrophils Absolute 11.20(H) 2.00 - 7.00 K/mm3 12/22/2024 6:59 PM [facility] Absolute Immature Granulocyte 0.09 0.00 - 0.09 K/mm3 12/22/2024 6:59 PM [facility] Lymphocytes Absolute 3.12(H) 1.00 - 3.00 K/mm3 12/22/2024 6:59 PM [facility] Monocytes Absolute 1.00 0.20 - 1.00 K/mm3 12/22/2024 6:59 PM EDT [facility] Eosinophils Absolute 0.09 0.00 - 0.50 K/mm3 12/22/2024 6:59 PM EDT [facility] Basophils Absolute 0.03 0.00 - 0.10 K/mm3 12/22/2024 6:59 PM EDT [facility] Blood Venous blood / Unknown Venipuncture / Unknown 12/22/2024 6:45 PM EDT 12/22/2024 6:51 PM EDT Seth Pereyra DO LAB BLOOD ORDERABLES Fi nal Result [facility] [address] [place] [address], [place] [phone] * Ethanol (12/22/2024 6:45 PM EDT) Ethanol <=10 0 - 10 mg/dL 12/22/2024 7:19 PM EDT [facility] Comment:NONE DETECTED: Resul t <10 should be interpreted as NONE DETECTED. Blood Venous blood / Unknown Venipuncture / Unknown 12/22/2024 6:45 PM EDT 12/22/2024 6:51 PM EDT us Seth Pereyra DO LAB BLOOD ORDERABLES Fi nal Result [facility] [address] [place] [address], [place] [phone] * Acetaminophen level (12/22/2024 6:45 PM EDT) Acetaminophen Level <5.1 <15.0 ug/mL 12/22/2024 7:19 PM EDT [facility] Blood Venous blood / Unknown Venipuncture / Unknown 12/22/2024 6:45 PM EDT 12/22/2024 6:51 PM EDT us Seth Tip Pereyra DO LAB BLOOD ORDERABLES Fi nal Result Performing Organization Address City/[facility]/ZIP Co de Phone Number [facility] [address] [place] [address], [place] [phone] * Salicylate level (12/22/2024 6:45 PM EDT) Salicylate Level <=3.0 3.0 - 30.0 mg/dL 12/22/2024 7:19 PM EDT [facility] Blood Venous blood / Unknown Venipuncture / Unknown 12/22/2024 6:45 PM EDT 12/22/2024 6:51 PM EDT Seth Pereyra DO LAB BLOOD ORDERABLES Fi nal Result Performing Organization Address City/[facility]/ZIP Co de Phone Number [facility] [address] [place] [address], [place] [phone] * (ABNORMAL) Valproic Acid Level, Total (12/22/2024 6:45 PM EDT) Valproic Acid, Total 47(L) 50 - 100 ug/mL 12/22/2024 7:19 PM EDT [facility] Blood Venous blood / Unknown Venipuncture / Unknown 12/22/2024 6:45 PM EDT 12/22/2024 6:51 PM EDT Seth Pereyra DO LAB BLOOD ORDERABLES Fi nal Result [facility] [address] [place] [address], [place] [phone] * (ABNORMAL) Comprehensive metabolic panel (12/22/2024 6:45 PM EDT) Glucose 104(H) 70 - 100 mg/dL 12/22/2024 7:22 PM EDT [facility] BUN 7 6 - 19 mg/dL 12/22/2024 7:22 PM EDT [facility] Creatinine 1.0 0.4 - 1.2 mg/dL 12/22/2024 7:22 PM T [facility] eGFR >60.00 >60.00 mL/min/1.7 3m*2 12/22/2024 7:22 PM EDT [facility] Sodium 137 135 - 145 mmol/L 12/22/2024 7:22 PM T [facility] Potassium 3.9 3.4 - 5.1 mmol/L 12/22/2024 7:22 PM T [facility] Chloride 99 98 - 109 mmol/L 12/22/2024 7:22 PM EDT [facility] CO2 23 22 - 29 mmol/L 12/22/2024 7:22 PM EDT [facility] Anion Gap 15 6 - 16 mmol/L 12/22/2024 7:22 PM T [facility] Calcium 8.9 8.5 - 10.5 mg/dL 12/22/2024 7:22 PM T [facility] Total Bilirubin 0.2 0.2 - 1.2 mg/dL 12/22/2024 7:22 PM [facility] Alkaline Phosphatase 51 35 - 104 U/L 12/22/2024 7:22 PM [facility] ALT (SGPT) 40(H) 0 - 31 U/L 12/22/2024 7:22 PM T [facility] AST 22 0 - 32 U/L 12/22/2024 7:22 PM T [facility] Total Protein 7.5 6.0 - 8.5 g/dL 12/22/2024 7:22 PM [facility] Albumin 4.0 3.3 - 5.2 g/dL 12/22/2024 7:22 PM [facility] Corrected Calcium 8.9 8.5 - 10.5 mg/dL 12/22/2024 7:22 PM T [facility] Estimated Creatinine Clearance 108.7 mL/min 12/22/2024 7:22 PM [facility] Blood Venous blood / Unknown Venipuncture / Unknown 12/22/2024 6:45 PM EDT 12/22/2024 6:51 PM EDT us Seth Pereyra LAB BLOOD ORDERABLES Fi nal Result [facility] [address] [place] [address], [place] [phone] * COVID-19 ([facility]) (12/22/2024 6:41 PM EDT) [facility] ([facility]) PCR Negative Negative LTT PANTHER ANALYZER-DP H 12/22/2024 10:29 PM EDT [facility] Swab (Nasopharynx) Non-blood Collection / Unknown 12/22/2024 6:41 PM EDT 12/22/2024 6:50 PM EDT Seth Pereyra DO LAB MICROBIOLOGY - GENE RAL ORDERABLES Final Result [facility] [address] [place] [address], [place] [phone] * (ABNORMAL) Urine drugs of abuse screen (12/22/2024 6:40 PM EDT) [facility] Amphetamines, Urine Screen None Detected None Detected 12/22/2024 8:48 PM EDT [facility] Barbiturates, Urine Screen None Detected None Detected 12/22/2024 8:48 PM EDT [facility] Benzodiazepines, Urine Screen Positive(A) None Detected 12/22/2024 8:48 PM EDT [facility] Cocaine, Urine Screen None Detected None Detected 12/22/2024 8:48 PM EDT [facility] Opiates, Urine Screen None Detected None Detected 12/22/2024 8:48 PM EDT [facility] Cannabinoids (THC), Urine Screen Positive(A) None Detected 12/22/2024 8:48 PM EDT [facility] Tricyclic Antidepressants, Urine Screen Positive(A) None Detected 12/22/2024 8:48 PM EDT [facility] Fentanyl, Urine Screen None Detected None Detected 12/22/2024 8:48 PM EDT [facility] Methadone, Urine Screen None Detected None Detected 12/22/2024 8:48 PM EDT [facility] Oxycodone, Urine Screen None Detected None Detected 12/22/2024 8:48 PM EDT [facility] Buprenorphine, Urine Screen None Detected None Detected 12/22/2024 8:48 PM EDT [facility] Phencyclidine, Urine Screen None Detected None Detected 12/22/2024 8:48 PM EDT [facility] Urine Urine specimen obtained by clean catch procedure / Unknown Non-blood Collection / Unknown 12/22/2024 6:40 PM EDT 12/22/2024 6:51 PM EDT Narrative [facility] - 12/22/2024 8:48 PM EDT This [...] ng/ml Buprenorphine 5 ng/ml Phencyclidine 25 ng/ml Seth Pereyra DO LAB URINE ORDERABLES Fi nal Result [facility] [address] [place] [address], from Last 3 Months Insurance GENERIC COMMERCIAL GENERIC TH[employer]UTION [employer]Y LIABILITY GENERIC WORKER'S COMPENSATION GENERIC WORKER'S COMPENSATION GENERIC WORKER'S COMPENSATION Republican Liability Advance Directives For more information, please contact: [phone] * Full Code (Latest Code Status on File) Date Activated Date Inactivated Comments 12/22/2024 8:24 PM 12/23/2024 5:00 PM Question Answer Comments Cardiopulmonary Resuscitatio n: for a patient in cardiac or respiratory arrest (Full Code = Attempt Resuscitation, DNR = Do not attempt resuscitation): Full Code Ventilation: for a patient in respiratory distre ss: Intubate and Ventilate * Full Code Date Activated Date Inactivated Comments 06/30/2024 9:16 AM 06/30/2024 6:22 PM Question Answer Comments Cardiopulmonary Resuscitatio n: for a patient in cardiac or respiratory arrest (Full Code = Attempt Resuscitation, DNR = Do not attempt resuscitation): Full Code Ventilation: for a patient in respiratory distre ss: Intubate and Ventilate * Full Code Date Activated Date Inactivated Comments 05/22/2024 12:28 PM 05/23/2024 1:20 AM Question Answer Comments Cardiopulmonary Resuscitatio n: for a patient in cardiac or respiratory arrest (Full Code = Attempt Resuscitation, DNR = Do not attempt resuscitation): Full Code Ventilation: for a patient in respiratory distre ss: Intubate and Ventilate * Full Code Date Activated Date Inactivated Comments 05/05/2024 4:40 PM 05/06/2024 2:06 PM Question Answer Comments Cardiopulmonary Resuscitatio n: for a patient in cardiac or respiratory arrest (Full Code = Attempt Resuscitation, DNR = Do not attempt resuscitation): Full Code Ventilation: for a patient in respiratory distre ss: Intubate and Ventilate * Full Code Date Activated Date Inactivated Comments 03/10/2024 8:04 PM 03/11/2024 5:21 PM Question Answer Comments Cardiopulmonary Resuscitatio n: for a patient in cardiac or respiratory arrest (Full Code = Attempt Resuscitation, DNR = Do not attempt resuscitation): Full Code Ventilation: for a patient in respiratory distre ss: Intubate and Ventilate Care Teams Labor Relations Worker Relationship Specialty Start Date End Date Zaria Pires MD [address] [place] [id number] PCP - General Internal Medicine 02/08/24
[2024-12-23 20:00] VITALS: BP 122/72; PULSE 93; RESP 15; TEMP 36.9; O2SAT 98
[2024-12-23] MEDS: Divalproex Sodium ER 250 MG TAB.ER.24H PO (20:27)
[2024-12-24 08:00] VITALS: BP 137/83; PULSE 90; TEMP 36.9; O2SAT 99
--- NOTE | 2024-12-24 08:12 | HO.PM.IMCN ---
History of Present Illness Data of Consult Service Date: 12/24/24 Primary Care Provider: Unknown Physician HPI Reason for consult: Medical consult 39-year-old male with a past medical history of bipolar 1 disorder, schizoaffective disorder, paranoid schizophrenia, personality disorder, general anxiety disorder, IBS, a conversion disorder, ADHD so presented to the ED for evaluation of hallucinations. Her WBC initially elevated 50.5, no anemia, electrolytes within normal limits. On exam she denies any medical concerns. Feels well, eating and drinking. Review of Systems Review of Systems: Denies any shortness of breath, chest pain, palpitations, dizziness, lightheadedness, headaches, dysuria, abdominal pain or discomfort, nausea, vomiting or diarrhea. Denies chills, body aches, muscle aches, fatigue or weight loss. PMFSH Social History Household Members: Other Household Members Other:: mom +grandma Housing: House Do you presently have visiting nurse or other home services: No Patient Tobacco Use Status: Former Tobacco user Tobacco use type: Cigarette Years Smoked: 5 e-Cigarette/Vaping Use: Never Used Patient Interested in Nicotine Replacement: No Patient Given Instructions on How to Stop Smoking: No Second Hand Smoke Exposure: No Currently Displaying Signs/Symptoms of Drug Intoxication Withdrawal: No Have you been hit, kicked, punched, or otherwise hurt by someone within the past year? If so, by whom?: No Do you feel safe in your current relationship?: No Current Relationship Is there a partner from a previous relationship who is making you feel unsafe now?: No Are you made to feel afraid or neglected: No Spiritual Healthcare Practices: none [facility] Practices: none Cultural Healthcare Practices: none Advance Directives: No Advance Directives Information Provided: No Do you have thoughts of harming others: None Do you have a plan to hurt others: No Plan Recently lost weight without trying: No How much weight loss: Not applicable Eating poorly because of decreased appetite: No Nutrition screen score: 0 Nutrition Risks: No Nutritional Risk Patient : No : No Poor oral hygiene: No service: No Sexual orientation: Straight/Heterosexual Meds Allergies Allergy/AdvReac Type Severity Reaction Status Date / Time acetaminophen Allergy Anaphylaxis Verified 12/23/24 16:42 avocado Allergy Unknown Verified 12/23/24 16:42 azithromycin Allergy Unknown Verified 12/23/24 16:42 banana Allergy Unknown Verified 12/23/24 16:42 citalopram (From Celexa) Allergy Unknown Verified 12/23/24 16:42 clindamycin Allergy Unknown Verified 12/23/24 16:42 latex Allergy Anaphylaxis Verified 12/23/24 16:42 metronidazole Allergy Anaphylaxis Verified 12/23/24 16:42 nickel Allergy Anaphylaxis Verified 12/23/24 16:42 Sulfa (Sulfonamide Allergy Swelling Verified 12/23/24 16:42 Antibiotics) sulfasalazine Allergy Anaphylaxis Verified 12/23/24 16:42 kiwi extract Allergy Unknown Uncoded 12/23/24 18:52 wild lettuce Allergy Unknown Uncoded 12/23/24 18:52 Active Medications: Current Medications Al Hydroxide/Mg Hydroxide (Magnesium Hydrox/Alum Hydrox 30 Ml Oral.Susp) 30 ml PO Q6H PRN PRN Reason: Heartburn/Nausea Cariprazine (Cariprazine Hcl 3 Mg Capsule) 3 mg PO DAILY [facility] Clonazepam (Clonazepam 1 Mg Tablet) 1 mg PO BID [facility] Last Admin: 12/23/24 20:26 Dose: 1 mg Clonidine HCl (Clonidine Hcl 0.1 Mg Tablet) 0.1 mg PO TID PRN; Protocol PRN Reason: Anxiety Last Admin: 12/23/24 20:59 Dose: 0.1 mg Divalproex Sodium (Divalproex Sodium Er 500 Mg Tab.Er.24h) 500 mg PO BEDTIME ADDY Last Admin: 12/23/24 20:27 Dose: 500 mg Divalproex Sodium (Divalproex Sodium Er 250 Mg Tab.Er.24h) 250 mg PO BEDTIME ADDY Last Admin: 12/23/24 20:27 Dose: 250 mg Doxepin HCl (Doxepin Hcl 25 Mg Capsule) 25 mg PO BEDTIME ADDY Last Admin: 12/23/24 20:27 Dose: 25 mg Gabapentin (Gabapentin 400 Mg Capsule) 400 mg PO TID ADDY Last Admin: 12/23/24 20:27 Dose: 400 mg Haloperidol (Haloperidol 5 Mg Tablet) 5 mg PO TID ADDY Last Admin: 12/23/24 20:27 Dose: 5 mg Hydroxyzine HCl (Hydroxyzine Hcl 25 Mg Tablet) 25 mg PO Q6H PRN PRN Reason: mild anxiety Hydroxyzine HCl (Hydroxyzine Hcl 50 Mg Tablet) 50 mg PO BID PRN PRN Reason: Insomnia Last Admin: 12/24/24 01:17 Dose: 50 mg Loratadine (Loratadine 10 Mg Tablet) 10 mg PO DAILY [facility] Magnesium Hydroxide (Milk Of Magnesia 30 Ml Oral.Susp) 30 ml PO DAILY PRN PRN Reason: Constipation Nicotine (Nicotine 21 Mg Patch.Td24) 21 mg TRANSDERMA DAILY PRN PRN Reason: smoking cessation Nicotine Polacrilex (Nicotine Polacrilex 2 Mg Gum) 4 mg BUCCAL Q2H PRN PRN Reason: Nicotine Cravings Nortriptyline HCl (Nortriptyline Hcl 25 Mg Capsule) 100 mg PO BEDTIME [facility] Last Admin: 12/23/24 20:26 Dose: 100 mg Olanzapine (Olanzapine 5 Mg Tablet) 5 mg PO TID PRN PRN Reason: agitation Perphenazine (Perphenazine 8 Mg Tablet) 16 mg PO BID [facility] Last Admin: 12/23/24: Dose: 16 mg Spironolactone (Spironolactone 25 Mg Tablet) 100 mg PO DAILY ADDY; Protocol Sumatriptan Succinate (Sumatriptan Succinate 100 Mg Tablet) 100 mg PO Q2H PRN PRN Reason: Migraine Headache Trazodone HCl (Trazodone Hcl 50 Mg Tablet) 50 mg PO BEDTIME MRX1 PRN PRN Reason: Insomnia Home Medications ?Medication ?Instructions ?Recorded ?Confirmed ?Last Taken ?Type Adderall 10 mg PO BID 12/23/24 12/23/24 Unknown History Ajovy Syringe 12/23/24 Unknown History Depakote ER 250 mg PO BEDTIME 12/23/24 12/23/24 Unknown History Depakote ER 500 mg PO BEDTIME 12/23/24 12/23/24 Unknown History cariprazine 3 mg capsule (Vraylar) 3 mg PO DAILY 12/23/24 12/23/24 Unknown History clonazepam 1 mg PO BID 12/23/24 12/23/24 Unknown History clonidine HCl 0.1 mg tablet 0.1 mg PO TID PRN Anxiety 12/23/24 12/23/24 03/04/24 08:00 History doxepin 25 mg capsule 25 mg PO BEDTIME 12/23/24 12/23/24 04/02/24 08:00 History gabapentin 400 mg capsule 400 mg PO TID 12/23/24 12/23/24 Unknown History haloperidol 5 mg tablet 5 mg PO TID 12/23/24 12/23/24 Unknown History hydroxyzine pamoate 50 mg capsule 50 mg PO BID PRN insomnia 12/23/24 12/23/24 04/02/24 07:00 History levocetirizine 5 mg tablet (Xyzal) 5 mg PO DAILY 12/23/24 12/23/24 Unknown History nortriptyline 50 mg capsule 100 mg PO BEDTIME 12/23/24 12/23/24 Unknown History perphenazine 16 mg tablet 16 mg PO BID 12/23/24 12/23/24 Unknown History spironolactone 100 mg tablet 100 mg PO DAILY 12/23/24 12/23/24 12/23/24 08:00 History sumatriptan succinate 100 mg 100 mg PO Q2-4H PRN Allergic 12/23/24 12/23/24 Unknown History tablet (Imitrex) Symptoms Physical Exam Vital Signs and Narrative: Vital Signs: Last Vital Signs Temp 98.4 F 12/23/24 20:00 Pulse 93 12/23/24 20:00 Resp 15 12/23/24 20:00 BP 122/72 12/23/24 20:00 Pulse Ox 98 12/23/24 20:00 O2 Del Method Room Air 12/23/24 17:12 BMI result Body Mass Index 38.9 CONST: Alert and oriented, in NAD. Well nourished HEENT: Normocephalic, atraumatic, MMM, Eyes clear, Neck supple RESP: Lungs clear, RRR even and regular HEART:,RRR, S1, S2. No edema GI:Abdomen Soft NT, ND. + BS times four :Deferred SKIN: Warm dry and intact, no visible lesions or rashes NEURO:CN II-XII Intact bilaterally, Sensation intact. Speech clear PSYCH: Normal affect. Calm and cooperative. Results Labs 12/24/24 09:40 Assessment and Plan (1) IBS (irritable bowel syndrome): Status: Acute Plan 39-year-old female with past medical history listed below, admitted to inpatient psych for stabilization after presenting to the ED for increased hallucinations. Bipolar 1 disorder/schizoaffective disorder with paranoia/personality disorder/GERD/conversion disorder/ADHD Treatment per psychiatric team IBS Avoid constipation, notify provider with any increase or worsening symptoms. Thank you for allowing me to participate in the care of this patient. Will follow with you, please notify medical provider with any changes in condition or concerns.
[2024-12-24 09:10] VITALS: BP 137/83
[2024-12-24 10:31] LABS: Hemoglobin A1C 161.8661 umol/L; Total Hemoglobin (HGBA1C) 3806.6123 umol/L
--- NOTE | 2024-12-24 10:32 | HO.PSYADMNOT ---
HPI Date of Service: 12/24/24 Chief Complaint: F29 Sources of Information: patient interviewed, chart reviewed and crisis/core team assessment reviewed HPI Subjective Notes: Barker Warning and Conditional Voluntary Healthcare Proxy: No Guardianship: No Medical Problems Affecting Mental Status: No Narrative: 39 yo female, prefers to be called Kyle , transfer from [facility], with an increase in auditory and visual perceptual alterations, CAH to self harm and current med regime that has been less effective. Describes loss of insurance and provider groups in Nov 2024. She received new insurance in December 2024 and now has to find a new provider group-she is hoping to enroll in [facility]. Previous provider gave her enough medications to cover, however pt reports needing ongoing adjustments which were not happening. Pt repors anergy, amotivation, and being overwhelmed with voices, one who tells her to suicide all of the time. She hopes this admission will help make the extra voices go away . Pt also reports feeling extreme exhaustion since being changed from Lamictal to Depakote earlier this year. Past Psychiatric History: IP: 6 over the past 1.5 years- Feb 2024-June 2024 the most- 5 months straight in and out- before that May 2023 and before that she cannot count. OP: Meredith Quinn [phone] was her prescriber, Charlotte Reid is her therapist from [facility] [phone] [facility] [phone] Dr. Pires-PCP Suicide attempts-age 19 Med history: Lamictal changed to Depakote Medical Evaluation Reviewed: Yes [facility] Medical History (Updated 12/24/24 @ 19:40 by Riddhi Esqueda, NIGHTMAN) Cannabis use disorder Schizoaffective disorder, bipolar type Narrative: Asthma, Migraine Headaches,Allergies Family History: Mental health issues-maternal relatives Father-alcohol, drugs-left when pt was [age] ?Suicides- I don't know Social History: Born in [place], one brother 36. Raised by both parents until age 5. Mom took pt and brother away from dad to [employer] [place]). Returned age 7 to [place]. Held back in school for one year which was very helpful as it improved her reading a great deal. Dyslexic, ADHD without treatment in school. Graduated, took college courses, with honors but was restless. 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 Needed admission secondary to how her scenic arts supervisor treated her and transferred to [facility]. [facility] disability started 08/18/24. 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 She likes to read, role play and be with friends. Currently lives with her mother and grandparents. She had no children, but has two cats, Bongo and Inky whom she enjoys Substance History: Cannabis-stopped 5 days ago-helps with decreasing hallucinations Nicotine-stopped 1.5 weeks ago Trauma History: Affirms Diagnostics Vital Signs (24Hr): Vital Signs - 24 hr 12/23/24 17:12 12/23/24 20:00 12/24/24 09:10 Temperature 97.6 F 98.4 F Pulse Rate 80 93 Respiratory Rate 16 15 Blood Pressure 135/88 122/72 137/83 Pulse Oximetry 99 98 Oxygen Delivery Method Room Air BMI result Body Mass Index 38.9 Labs 12/24/24 09:40 Labs: Laboratory Results - last 48 hr 12/24/24 09:40 Estimat Average Glucose 126 Hemoglobin A1c % 6.0 WBC 15.5 ALT 40 VAlP 47 EKG EKG: reviewed EKG Comment: NSR QTc 459 Meds/Allergies Meds Home Medications ?Medication ?Instructions ?Recorded ?Confirmed ?Type Adderall 10 mg PO BID 12/23/24 12/23/24 History Ajovy Syringe 12/23/24 History Depakote ER 250 mg PO BEDTIME 12/23/24 12/23/24 History Depakote ER 500 mg PO BEDTIME 12/23/24 12/23/24 History cariprazine 3 mg capsule (Vraylar) 3 mg PO DAILY 12/23/24 12/23/24 History clonazepam 1 mg PO BID 12/23/24 12/23/24 History clonidine HCl 0.1 mg tablet 0.1 mg PO TID PRN Anxiety 12/23/24 12/23/24 History doxepin 25 mg capsule 25 mg PO BEDTIME 12/23/24 12/23/24 History gabapentin 400 mg capsule 400 mg PO TID 12/23/24 12/23/24 History haloperidol 5 mg tablet 5 mg PO TID 12/23/24 12/23/24 History hydroxyzine pamoate 50 mg capsule 50 mg PO BID PRN insomnia 12/23/24 12/23/24 History levocetirizine 5 mg tablet (Xyzal) 5 mg PO DAILY 12/23/24 12/23/24 History nortriptyline 50 mg capsule 100 mg PO BEDTIME 12/23/24 12/23/24 History perphenazine 16 mg tablet 16 mg PO BID 12/23/24 12/23/24 History spironolactone 100 mg tablet 100 mg PO DAILY 12/23/24 12/23/24 History sumatriptan succinate 100 mg 100 mg PO Q2-4H PRN Allergic 12/23/24 12/23/24 History tablet (Imitrex) Symptoms Allergies Allergies Allergy/AdvReac Type Severity Reaction Status Date / Time acetaminophen Allergy Anaphylaxis Verified 12/23/24 16:42 avocado Allergy Unknown Verified 12/23/24 16:42 azithromycin Allergy Unknown Verified 12/23/24 16:42 banana Allergy Unknown Verified 12/23/24 16:42 citalopram (From Celexa) Allergy Unknown Verified 12/23/24 16:42 clindamycin Allergy Unknown Verified 12/23/24 16:42 latex Allergy Anaphylaxis Verified 12/23/24 16:42 metronidazole Allergy Anaphylaxis Verified 12/23/24 16:42 nickel Allergy Anaphylaxis Verified 12/23/24 16:42 Sulfa (Sulfonamide Allergy Swelling Verified 12/23/24 16:42 Antibiotics) sulfasalazine Allergy Anaphylaxis Verified 12/23/24 16:42 kiwi extract Allergy Unknown Uncoded 12/23/24 18:52 wild lettuce Allergy Unknown Uncoded 12/23/24 18:52 Mental Status Exam Mental Status Exam Patient Appearance: Appropriate Patient Orientation: Person, Place, Time and Situation Level of Consciousness: Alert Patient Behavior: Talkative, Anxious and Good Eye Contact Mood Description: Anxious Affect Description: Anxious Patient Cognition Impaired: No Ability to Follow Directions: Good Speech Pattern: Spontaneous Speech Memory Description: Intact Hallucinations: Auditory and Visual Delusions: Present Thought Process: Rumination and Goal Oriented Thought Content: positive for Circumstantial, positive for Goal Oriented and positive for Suicidal Ideation (voices, CAH, however, she reports she is trying to manage it) Depressive Symptoms: Increased Anxiety and Thoughts of /Suicide (CAH) Judgement: Fair Assessment & Plan Assessment & Plan (1) Schizoaffective disorder, bipolar type: Status: Acute Code(s): F25.0 - Schizoaffective disorder, bipolar type (2) Cannabis use disorder: Status: Acute Code(s): F12.90 - Cannabis use, unspecified, uncomplicated Plan 39 yo female, prefers to be called [facility] , transfer from [facility], with an increase in auditory and visual perceptual alterations, CAH to self harm and current med regime that has been less effective. Describes loss of insurance and provider groups in Nov 2024. She received new insurance in December 2024 and now has to find a new provider group-she is hoping to enroll in [facility]. Previous provider gave her enough medications to cover, however pt reports needing ongoing adjustments which were not happening. Pt repors anergy, amotivation, and being overwhelmed with voices, one who tells her to suicide all of the time. She hopes this admission will help make the extra voices go away . Pt also reports feeling extreme exhaustion since being changed from Lamictal to Depakote earlier this year. Plan: Admit, CV, 15 minute checks Med review- Increase Haldol to 5 mg qid and 1 mg qd prn voices. Pt reports she does better on first generation drugs. Decrease Depakote to 500 mg HS Pamelor level Encourage full milieu involvement Collateral contacts Diagnostics as needed. Patient educated on: medication risk/benefits, substance abuse and therapeutic strategies Informed Consent: understands Reason for continued inpatient stay Substantial Risk for: rapid decompensation Statement Statement: I have reviewed the history and physical and performed a pertinent examination on my patient. No changes have occurred unless specified. If the History and Physical was not performed prior to admission, the Hospitalist's service will be consulted for completing the admission physical. Time Spent With Patient Time: Total time managing care of this patient today ____ minutes.
[2024-12-24 10:35] LABS: Alanine Aminotransferase 55 U/L (0-31); Albumin Level 4.3 g/dL (3.5-5.0); Alkaline Phosphatase 54 U/L (39-117); Anion Gap 13 (12-20); Aspartate Amino Transferase 37 U/L (5-31); Blood Urea Nitrogen 11 mg/dL (9-16); Calcium 9.9 mg/dL (8.4-10.2); Carbon Dioxide 26 mmol/L (22-29); Chloride 107 mmol/L (96-108); Cholesterol 188 mg/dL (<200); Creatinine Clr Calc Pharmacy 98.8; Estimated Glomerular Filt Rate 56; HDL Cholesterol 26 mg/dL (>40); Potassium 4.5 mmol/L (3.3-5.1); Sodium 141 mmol/L (135-145); Total Protein 7.8 g/dL (6.5-8.0); Triglycerides 149 mg/dL (<150)
[2024-12-24 20:00] VITALS: BP 110/71; PULSE 91; RESP 16; TEMP 37.2; O2SAT 98
[2024-12-25 08:17] VITALS: BP 135/79; PULSE 91; RESP 18; TEMP 36.9; O2SAT 98
[2024-12-25] MEDS: Amphetamine Mixed Salts 10 MG TABLET PO ×2 (08:36→14:16)
--- NOTE | 2024-12-25 10:04 | HO.PSYCHPN ---
Subjective Subjective Date of Service: 12/25/24 Reason For Visit: F29 Interim History: Patient seen. Reports her AH continue. She is hopeful medication adjustments will be helpful for her. She denies SI. Engaged in treatment. Attending some groups. Review of Systems Review of Systems Denies Mental Status Exam Mental Status Exam Patient Appearance: Appropriate Patient Orientation: Person, Place, Time and Situation Level of Consciousness: Alert Patient Behavior: Talkative, Anxious and Good Eye Contact Mood Description: Anxious Affect Description: Anxious Patient Cognition Impaired: No Ability to Follow Directions: Good Speech Pattern: Spontaneous Speech Memory Description: Intact Diagnostics Vital Signs (24Hr): Vital Signs - 24 hr 12/24/24 20:00 12/25/24 08:17 Temperature 99 F 98.5 F Pulse Rate 91 91 Respiratory Rate 16 18 Blood Pressure 110/71 135/79 Pulse Oximetry 98 98 Oxygen Delivery Method Room Air Room Air BMI result Body Mass Index 38.9 Labs 12/24/24 09:40 Labs: Laboratory Results - last 48 hr 12/24/24 09:40 Sodium 141 Potassium 4.5 Chloride 107 Carbon Dioxide 26 Anion Gap 13 BUN 11 Creatinine 1.10 Estim Creat Clear Calc 98.8 Estimated GFR 56 Random Glucose 139 H Estimat Average Glucose 126 Hemoglobin A1c % 6.0 Calcium 9.9 Total Bilirubin 0.3 AST 37 H ALT 55 H Alkaline Phosphatase 54 Total Protein 7.8 Albumin 4.3 Triglycerides 149 Cholesterol 188 LDL Cholesterol, Calc 133 H HDL Cholesterol 26 L TSH 1.43 Medications Medications Current Medications Al Hydroxide/Mg Hydroxide (Magnesium Hydrox/Alum Hydrox 30 Ml Oral.Susp) 30 ml PO Q6H PRN PRN Reason: Heartburn/Nausea Albuterol Sulfate (Albuterol Sulfate 90 Mcg 8 Gm Inhaler) 2 puff INHALE RQ6H PRN PRN Reason: Shortness of Breath Amphetamine/Dextroamphetamine (Amphetamine Mixed Salts 10 Mg Tablet) 10 mg PO BID@0800,1400 [facility] Last Admin: 12/25/24 08:36 Dose: 10 mg Cariprazine (Cariprazine Hcl 3 Mg Capsule) 3 mg PO DAILY [facility] Last Admin: 12/25/24 08:36 Dose: 3 mg Clonazepam (Clonazepam 1 Mg Tablet) 1 mg PO BID [facility] Last Admin: 12/25/24 08:36 Dose: 1 mg Clonazepam (Clonazepam 1 Mg Tablet) 1 mg PO DAILY PRN PRN Reason: anxiety Clonidine HCl (Clonidine Hcl 0.1 Mg Tablet) 0.1 mg PO TID PRN; Protocol PRN Reason: Anxiety Last Admin: 12/23/24 20:59 Dose: 0.1 mg Divalproex Sodium (Divalproex Sodium Er 500 Mg Tab.Er.24h) 500 mg PO BEDTIME [facility] Last Admin: 12/24/24 20:41 Dose: 500 mg Doxepin HCl (Doxepin Hcl 25 Mg Capsule) 25 mg PO BEDTIME [facility] Last Admin: 12/24/24 20:42 Dose: 25 mg Gabapentin (Gabapentin 400 Mg Capsule) 400 mg PO TID [facility] Last Admin: 12/25/24 08:36 Dose: 400 mg Haloperidol (Haloperidol 5 Mg Tablet) 5 mg PO QID [facility] Last Admin: 12/25/24 08:36 Dose: 5 mg Haloperidol (Haloperidol 5 Mg Tablet) 5 mg PO DAILY PRN PRN Reason: voices Hydroxyzine HCl (Hydroxyzine Hcl 25 Mg Tablet) 25 mg PO Q6H PRN PRN Reason: mild anxiety Hydroxyzine HCl (Hydroxyzine Hcl 50 Mg Tablet) 50 mg PO BID PRN PRN Reason: Insomnia Last Admin: 12/25/24 01:59 Dose: 50 mg Loratadine (Loratadine 10 Mg Tablet) 10 mg PO DAILY [facility] Last Admin: 12/25/24 08:36 Dose: 10 mg Magnesium Hydroxide (Milk Of Magnesia 30 Ml Oral.Susp) 30 ml PO DAILY PRN PRN Reason: Constipation Nicotine (Nicotine 21 Mg Patch.Td24) 21 mg TRANSDERMA DAILY PRN PRN Reason: smoking cessation Nicotine Polacrilex (Nicotine Polacrilex 2 Mg Gum) 4 mg BUCCAL Q2H PRN PRN Reason: Nicotine Cravings Nortriptyline HCl (Nortriptyline Hcl 25 Mg Capsule) 100 mg PO BEDTIME [facility] Last Admin: 12/24/24 20:39 Dose: 100 mg Olanzapine (Olanzapine 5 Mg Tablet) 5 mg PO TID PRN PRN Reason: agitation Perphenazine (Perphenazine 8 Mg Tablet) 16 mg PO BID [facility] Last Admin: 12/25/24 08:36 Dose: 16 mg Spironolactone (Spironolactone 25 Mg Tablet) 100 mg PO DAILY [facility]; Protocol Last Admin: 12/25/24 08:37 Dose: 100 mg Sumatriptan Succinate (Sumatriptan Succinate 100 Mg Tablet) 100 mg PO Q2H PRN PRN Reason: Migraine Headache Trazodone HCl (Trazodone Hcl 50 Mg Tablet) 50 mg PO BEDTIME MRX1 PRN PRN Reason: Insomnia Allergies Allergies Allergy/AdvReac Type Severity Reaction Status Date / Time acetaminophen Allergy Anaphylaxis Verified 12/23/24 16:42 avocado Allergy Unknown Verified 12/23/24 16:42 azithromycin Allergy Unknown Verified 12/23/24 16:42 banana Allergy Unknown Verified 12/23/24 16:42 citalopram (From Celexa) Allergy Unknown Verified 12/23/24 16:42 clindamycin Allergy Unknown Verified 12/23/24 16:42 latex Allergy Anaphylaxis Verified 12/23/24 16:42 metronidazole Allergy Anaphylaxis Verified 12/23/24 16:42 nickel Allergy Anaphylaxis Verified 12/23/24 16:42 Sulfa (Sulfonamide Allergy Swelling Verified 12/23/24 16:42 Antibiotics) sulfasalazine Allergy Anaphylaxis Verified 12/23/24 16:42 kiwi extract Allergy Unknown Uncoded 12/23/24 18:52 wild lettuce Allergy Unknown Uncoded 12/23/24 18:52 Assessment & Plan Assessment & Plan (1) Schizoaffective disorder, bipolar type: Status: Acute Code(s): F25.0 - Schizoaffective disorder, bipolar type (2) Cannabis use disorder: Status: Acute Code(s): F12.90 - Cannabis use, unspecified, uncomplicated Plan 39 yo female, prefers to be called [facility] , transfer from [facility], with an increase in auditory and visual perceptual alterations, CAH to self harm and current med regime that has been less effective. Describes loss of insurance and provider groups in Nov 2024. She received new insurance in December 2024 and now has to find a new provider group-she is hoping to enroll in [facility]. Previous provider gave her enough medications to cover, however pt reports needing ongoing adjustments which were not happening. Pt repors anergy, amotivation, and being overwhelmed with voices, one who tells her to suicide all of the time. She hopes this admission will help make the extra voices go away . Pt also reports feeling extreme exhaustion since being changed from Lamictal to Depakote earlier this year. Plan: Admit, CV, 15 minute checks Med review- Increase Haldol to 5 mg qid and 1 mg qd prn voices. Pt reports she does better on first generation drugs. Decrease Depakote to 500 mg HS Pamelor level Encourage full milieu involvement Collateral contacts Diagnostics as needed. 12/25: continue current management and treatment plan. Reason for continued inpatient stay Substantial Risk for: inability to function and rapid decompensation Time Spent With Patient Time: Total time managing care of this patient today ____ minutes.
[2024-12-25 20:00] VITALS: BP 128/79; PULSE 96; RESP 16; TEMP 36.9; O2SAT 95
[2024-12-26 08:00] VITALS: BP 126/79; PULSE 140; RESP 18; TEMP 36.3; O2SAT 96
[2024-12-26] MEDS: Amphetamine Mixed Salts 10 MG TABLET PO ×2 (08:30→14:08)
--- NOTE | 2024-12-26 09:32 | P.PNPSI_ITS ---
Subjective Subjective Date of Service: 12/26/24 Reason For Visit: F29 Interim History: Patient seen. Reports her AH continue but may have lessened some. She reports 2 kinds of voices. A voice that tells her to cut and the voices that are screaming. She remains hopeful medication adjustments will be helpful for her. She is noting a small difference. She denies SI. Engaged in treatment. Attending some groups. Review of Systems Review of Systems Denies Mental Status Exam Mental Status Exam Patient Appearance: Appropriate Patient Orientation: Person, Place, Time and Situation Level of Consciousness: Alert Patient Behavior: Talkative, Anxious and Good Eye Contact Mood Description: Anxious Affect Description: Anxious Patient Cognition Impaired: No Ability to Follow Directions: Good Speech Pattern: Spontaneous Speech Memory Description: Intact Diagnostics Vital Signs (24Hr): Vital Signs - 24 hr 12/25/24 20:00 12/26/24 08:00 Temperature 98.4 F 97.3 F Pulse Rate 96 140 H Respiratory Rate 16 18 Blood Pressure 128/79 126/79 Pulse Oximetry 95 96 Oxygen Delivery Method Room Air Room Air BMI result Body Mass Index 38.9 Labs 12/24/24 09:40 Labs: Laboratory Results - last 48 hr 12/24/24 09:40 Sodium 141 Potassium 4.5 Chloride 107 Carbon Dioxide 26 Anion Gap 13 BUN 11 Creatinine 1.10 Estim Creat Clear Calc 98.8 Estimated GFR 56 Random Glucose 139 H Estimat Average Glucose 126 Hemoglobin A1c % 6.0 Calcium 9.9 Total Bilirubin 0.3 AST 37 H ALT 55 H Alkaline Phosphatase 54 Total Protein 7.8 Albumin 4.3 Triglycerides 149 Cholesterol 188 LDL Cholesterol, Calc 133 H HDL Cholesterol 26 L TSH 1.43 Medications Medications Current Medications Al Hydroxide/Mg Hydroxide (Magnesium Hydrox/Alum Hydrox 30 Ml Oral.Susp) 30 ml PO Q6H PRN PRN Reason: Heartburn/Nausea Albuterol Sulfate (Albuterol Sulfate 90 Mcg 8 Gm Inhaler) 2 puff INHALE RQ6H PRN PRN Reason: Shortness of Breath Amphetamine/Dextroamphetamine (Amphetamine Mixed Salts 10 Mg Tablet) 10 mg PO BID@0800,1400 [facility] Last Admin: 12/26/24 08:30 Dose: 10 mg Cariprazine (Cariprazine Hcl 3 Mg Capsule) 3 mg PO DAILY [facility] Last Admin: 12/26/24 08:30 Dose: 3 mg Clonazepam (Clonazepam 1 Mg Tablet) 1 mg PO BID [facility] Last Admin: 12/26/24 08:30 Dose: 1 mg Clonazepam (Clonazepam 1 Mg Tablet) 1 mg PO DAILY PRN PRN Reason: anxiety Clonidine HCl (Clonidine Hcl 0.1 Mg Tablet) 0.1 mg PO TID PRN; Protocol PRN Reason: Anxiety Last Admin: 12/23/24 20:59 Dose: 0.1 mg Divalproex Sodium (Divalproex Sodium Er 500 Mg Tab.Er.24h) 500 mg PO BEDTIME [facility] Last Admin: 12/25/24 20:13 Dose: 500 mg Doxepin HCl (Doxepin Hcl 25 Mg Capsule) 25 mg PO BEDTIME [facility] Last Admin: 12/25/24 20:12 Dose: 25 mg Gabapentin (Gabapentin 400 Mg Capsule) 400 mg PO TID [facility] Last Admin: 12/26/24 08:30 Dose: 400 mg Haloperidol (Haloperidol 5 Mg Tablet) 5 mg PO QID [facility] Last Admin: 12/26/24 08:30 Dose: 5 mg Haloperidol (Haloperidol 5 Mg Tablet) 5 mg PO DAILY PRN PRN Reason: voices Hydroxyzine HCl (Hydroxyzine Hcl 25 Mg Tablet) 25 mg PO Q6H PRN PRN Reason: mild anxiety Hydroxyzine HCl (Hydroxyzine Hcl 50 Mg Tablet) 50 mg PO BID PRN PRN Reason: Insomnia Last Admin: 12/26/24 00:38 Dose: 50 mg Ibuprofen (Ibuprofen 400 Mg Tablet) 400 mg PO Q6H PRN PRN Reason: Pain, Moderate(Pain Scale 4-6) Last Admin: 12/25/24 20:54 Dose: 400 mg Loratadine (Loratadine 10 Mg Tablet) 10 mg PO DAILY [facility] Last Admin: 12/26/24 08:30 Dose: 10 mg Magnesium Hydroxide (Milk Of Magnesia 30 Ml Oral.Susp) 30 ml PO DAILY PRN PRN Reason: Constipation Nicotine (Nicotine 21 Mg Patch.Td24) 21 mg TRANSDERMA DAILY PRN PRN Reason: smoking cessation Nicotine Polacrilex (Nicotine Polacrilex 2 Mg Gum) 4 mg BUCCAL Q2H PRN PRN Reason: Nicotine Cravings Nortriptyline HCl (Nortriptyline Hcl 25 Mg Capsule) 100 mg PO BEDTIME [facility] Last Admin: 12/25/24 20:13 Dose: 100 mg Olanzapine (Olanzapine 5 Mg Tablet) 5 mg PO TID PRN PRN Reason: agitation Perphenazine (Perphenazine 8 Mg Tablet) 16 mg PO BID [facility] Last Admin: 12/26/24 08:30 Dose: 16 mg Spironolactone (Spironolactone 25 Mg Tablet) 100 mg PO DAILY [facility]; Protocol Last Admin: 12/26/24 08:30 Dose: 100 mg Sumatriptan Succinate (Sumatriptan Succinate 100 Mg Tablet) 100 mg PO Q2H PRN PRN Reason: Migraine Headache Last Admin: 12/25/24 16:39 Dose: 100 mg Trazodone HCl (Trazodone Hcl 50 Mg Tablet) 50 mg PO BEDTIME MRX1 PRN PRN Reason: Insomnia Allergies Allergies Allergy/AdvReac Type Severity Reaction Status Date / Time acetaminophen Allergy Anaphylaxis Verified 12/23/24 16:42 avocado Allergy Unknown Verified 12/23/24 16:42 azithromycin Allergy Unknown Verified 12/23/24 16:42 banana Allergy Unknown Verified 12/23/24 16:42 citalopram (From Celexa) Allergy Unknown Verified 12/23/24 16:42 clindamycin Allergy Unknown Verified 12/23/24 16:42 latex Allergy Anaphylaxis Verified 12/23/24 16:42 metronidazole Allergy Anaphylaxis Verified 12/23/24 16:42 nickel Allergy Anaphylaxis Verified 12/23/24 16:42 Sulfa (Sulfonamide Allergy Swelling Verified 12/23/24 16:42 Antibiotics) sulfasalazine Allergy Anaphylaxis Verified 12/23/24 16:42 kiwi extract Allergy Unknown Uncoded 12/23/24 18:52 wild lettuce Allergy Unknown Uncoded 12/23/24 18:52 Assessment & Plan Assessment & Plan (1) Schizoaffective disorder, bipolar type: Status: Acute Code(s): F25.0 - Schizoaffective disorder, bipolar type (2) Cannabis use disorder: Status: Acute Code(s): F12.90 - Cannabis use, unspecified, uncomplicated Plan 39 yo female, prefers to be called [facility] , transfer from [facility], with an increase in auditory and visual perceptual alterations, CAH to self harm and current med regime that has been less effective. Describes loss of insurance and provider groups in Nov 2024. She received new insurance in December 2024 and now has to find a new provider group-she is hoping to enroll in [facility]. Previous provider gave her enough medications to cover, however pt reports needing ongoing adjustments which were not happening. Pt repors anergy, amotivation, and being overwhelmed with voices, one who tells her to suicide all of the time. She hopes this admission will help make the extra voices go away . Pt also reports feeling extreme exhaustion since being changed from Lamictal to Depakote earlier this year. Plan: Admit, CV, 15 minute checks Med review- Increase Haldol to 5 mg qid and 1 mg qd prn voices. Pt reports she does better on first generation drugs. Decrease Depakote to 500 mg HS Pamelor level Encourage full milieu involvement Collateral contacts Diagnostics as needed. 12/25: continue current management and treatment plan. 12/26: continue current management and treatment plan. Reason for continued inpatient stay Substantial Risk for: harm to self, inability to function and rapid decompensation Time Spent With Patient Time: Total time managing care of this patient today ____ minutes.
[2024-12-26 19:42] VITALS: BP 139/94; PULSE 106; TEMP 35.9; O2SAT 98
[2024-12-26 20:38] VITALS: BP 139/94
[2024-12-26] MEDS: Magnesium Hydrox/Alum Hydrox 30 ML ORAL.SUSP PO (21:31)
[2024-12-27 09:05] VITALS: BP 110/82; PULSE 107; RESP 16; TEMP 37.3; O2SAT 98
[2024-12-27] MEDS: Amphetamine Mixed Salts 10 MG TABLET PO ×2 (09:08→14:28)
--- NOTE | 2024-12-27 09:50 | HO.PSYCHPN ---
Subjective Subjective Date of Service: 12/27/24 Reason For Visit: F29 Subjective Notes: Conditional Voluntary Healthcare Proxy: No Guardianship: No Medical Problems Affecting Mental Status: No Interim History: Pt reports voices and CAH are decreasing. Changes are taking effect. Review of regime. Pt would like to trial Lamictal again-will keep depakote at this time. Will increase Haldol, Perphenazine and Doxepin. 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 Medication Compliance: Yes Side effects from medications: No Attending Groups: Yes Review of Systems Acute medical concerns: No Medical Review of Systems: unchanged Review of Systems Review of Systems Denies Mental Status Exam Mental Status Exam Patient Appearance: Appropriate Patient Orientation: Person, Place, Time and Situation Level of Consciousness: Alert Patient Behavior: Talkative and Good Eye Contact Mood Description: Constricted and Apprehensive Affect Description: Apprehensive Patient Cognition Impaired: No Ability to Follow Directions: Good Speech Pattern: Spontaneous Speech Memory Description: Intact Hallucinations: Auditory and Visual Delusions: Present Thought Content: positive for Perseveration and positive for Suicidal Ideation (denies) Depressive Symptoms: Thoughts of /Suicide (denies) Judgement: Fair Diagnostics Vital Signs (24Hr): Vital Signs - 24 hr 12/26/24 19:42 12/26/24 20:38 12/27/24 09:05 Temperature 96.6 F L 99.1 F Pulse Rate 106 H 107 H Respiratory Rate 16 Blood Pressure 139/94 H 139/94 H 110/82 Pulse Oximetry 98 98 Oxygen Delivery Method Room Air Room Air BMI result Body Mass Index 38.9 Labs 12/24/24 09:40 Medications Medications Current Medications Al Hydroxide/Mg Hydroxide (Magnesium Hydrox/Alum Hydrox 30 Ml Oral.Susp) 30 ml PO Q6H PRN PRN Reason: Heartburn/Nausea Last Admin: 12/26/24 21:31 Dose: 30 ml Albuterol Sulfate (Albuterol Sulfate 90 Mcg 8 Gm Inhaler) 2 puff INHALE RQ6H PRN PRN Reason: Shortness of Breath Amphetamine/Dextroamphetamine (Amphetamine Mixed Salts 10 Mg Tablet) 10 mg PO BID@0800,1400 [facility] Last Admin: 12/27/24 09:08 Dose: 10 mg Cariprazine (Cariprazine Hcl 3 Mg Capsule) 3 mg PO DAILY [facility] Last Admin: 12/27/24 09:08 Dose: 3 mg Clonazepam (Clonazepam 1 Mg Tablet) 1 mg PO BID [facility] Last Admin: 12/27/24 09:09 Dose: 1 mg Clonazepam (Clonazepam 1 Mg Tablet) 1 mg PO DAILY PRN PRN Reason: anxiety Clonidine HCl (Clonidine Hcl 0.1 Mg Tablet) 0.1 mg PO TID PRN; Protocol PRN Reason: Anxiety Last Admin: 12/26/24 20:38 Dose: 0.1 mg Divalproex Sodium (Divalproex Sodium Er 500 Mg Tab.Er.24h) 500 mg PO BEDTIME [facility] Last Admin: 12/26/24 20:37 Dose: 500 mg Doxepin HCl (Doxepin Hcl 25 Mg Capsule) 25 mg PO BEDTIME [facility] Last Admin: 12/26/24 20:38 Dose: 25 mg Gabapentin (Gabapentin 400 Mg Capsule) 400 mg PO TID [facility] Last Admin: 12/27/24 09:09 Dose: 400 mg Haloperidol (Haloperidol 5 Mg Tablet) 5 mg PO QID [facility] Last Admin: 12/27/24 09:09 Dose: 5 mg Haloperidol (Haloperidol 5 Mg Tablet) 5 mg PO DAILY PRN PRN Reason: voices Hydroxyzine HCl (Hydroxyzine Hcl 25 Mg Tablet) 25 mg PO Q6H PRN PRN Reason: mild anxiety Last Admin: 12/27/24 00:28 Dose: 25 mg Hydroxyzine HCl (Hydroxyzine Hcl 50 Mg Tablet) 50 mg PO BID PRN PRN Reason: Insomnia Last Admin: 12/26/24 20:37 Dose: 50 mg Ibuprofen (Ibuprofen 400 Mg Tablet) 400 mg PO Q6H PRN PRN Reason: Pain, Moderate(Pain Scale 4-6) Last Admin: 12/25/24 20:54 Dose: 400 mg Loratadine (Loratadine 10 Mg Tablet) 10 mg PO DAILY [facility] Last Admin: 12/27/24 09:09 Dose: 10 mg Magnesium Hydroxide (Milk Of Magnesia 30 Ml Oral.Susp) 30 ml PO DAILY PRN PRN Reason: Constipation Nicotine (Nicotine 21 Mg Patch.Td24) 21 mg TRANSDERMA DAILY PRN PRN Reason: smoking cessation Nicotine Polacrilex (Nicotine Polacrilex 2 Mg Gum) 4 mg BUCCAL Q2H PRN PRN Reason: Nicotine Cravings Nortriptyline HCl (Nortriptyline Hcl 25 Mg Capsule) 100 mg PO BEDTIME [facility] Last Admin: 12/26/24 20:37 Dose: 100 mg Olanzapine (Olanzapine 5 Mg Tablet) 5 mg PO TID PRN PRN Reason: agitation Perphenazine (Perphenazine 8 Mg Tablet) 16 mg PO BID [facility] Last Admin: 12/27/24 09:09 Dose: 16 mg Spironolactone (Spironolactone 25 Mg Tablet) 100 mg PO DAILY [facility]; Protocol Last Admin: 12/27/24 09:09 Dose: 100 mg Sumatriptan Succinate (Sumatriptan Succinate 100 Mg Tablet) 100 mg PO Q2H PRN PRN Reason: Migraine Headache Last Admin: 12/25/24 16:39 Dose: 100 mg Trazodone HCl (Trazodone Hcl 50 Mg Tablet) 50 mg PO BEDTIME MRX1 PRN PRN Reason: Insomnia Allergies Allergies Allergy/AdvReac Type Severity Reaction Status Date / Time acetaminophen Allergy Anaphylaxis Verified 12/23/24 16:42 avocado Allergy Unknown Verified 12/23/24 16:42 azithromycin Allergy Unknown Verified 12/23/24 16:42 banana Allergy Unknown Verified 12/23/24 16:42 citalopram (From Celexa) Allergy Unknown Verified 12/23/24 16:42 clindamycin Allergy Unknown Verified 12/23/24 16:42 latex Allergy Anaphylaxis Verified 12/23/24 16:42 metronidazole Allergy Anaphylaxis Verified 12/23/24 16:42 nickel Allergy Anaphylaxis Verified 12/23/24 16:42 Sulfa (Sulfonamide Allergy Swelling Verified 12/23/24 16:42 Antibiotics) sulfasalazine Allergy Anaphylaxis Verified 12/23/24 16:42 kiwi extract Allergy Unknown Uncoded 12/23/24 18:52 wild lettuce Allergy Unknown Uncoded 12/23/24 18:52 Assessment & Plan Assessment & Plan (1) Schizoaffective disorder, bipolar type: Status: Acute Code(s): F25.0 - Schizoaffective disorder, bipolar type (2) Cannabis use disorder: Status: Acute Code(s): F12.90 - Cannabis use, unspecified, uncomplicated Plan 39 yo female, prefers to be called [facility] , transfer from [facility], with an increase in auditory and visual perceptual alterations, CAH to self harm and current med regime that has been less effective. Describes loss of insurance and provider groups in Nov 2024. She received new insurance in December 2024 and now has to find a new provider group-she is hoping to enroll in [facility]. Previous provider gave her enough medications to cover, however pt reports needing ongoing adjustments which were not happening. Pt repors anergy, amotivation, and being overwhelmed with voices, one who tells her to suicide all of the time. She hopes this admission will help make the extra voices go away . Pt also reports feeling extreme exhaustion since being changed from Lamictal to Depakote earlier this year. Plan: Admit, CV, 15 minute checks Med review- Increase Haldol to 5 mg qid and 1 mg qd prn voices. Pt reports she does better on first generation drugs. Decrease Depakote to 500 mg HS Pamelor level Encourage full milieu involvement Collateral contacts Diagnostics as needed. 12/25: continue current management and treatment plan. 12/26: continue current management and treatment plan. 12/27: Lamictal 25 mg HS Increase Haldol to 10 mg tid and 5 mg daily prn Increase Trilafon to 18 mg bid Increase Doxepin to 35 mg HS Reason for continued inpatient stay Substantial Risk for: rapid decompensation Time Spent With Patient Time: Total time managing care of this patient today ____ minutes.
[2024-12-27 20:00] VITALS: BP 112/66; PULSE 119; TEMP 37.2; O2SAT 97
[2024-12-27] MEDS: DOXEPIN HCL 35 MG PO (20:31)
[2024-12-27 20:32] VITALS: BP 112/66
[2024-12-27] MEDS: Magnesium Hydrox/Alum Hydrox 30 ML ORAL.SUSP PO (21:07)
[2024-12-28 08:00] VITALS: BP 112/98; PULSE 105; RESP 16; TEMP 37; O2SAT 97
[2024-12-28] MEDS: Amphetamine Mixed Salts 10 MG TABLET PO ×2 (09:04→14:57)
--- NOTE | 2024-12-28 18:05 | HO.PSYCHPN ---
Subjective Subjective Date of Service: 12/28/24 Reason For Visit: F29 Subjective Notes: Conditional Voluntary Healthcare Proxy: No Guardianship: No Medical Problems Affecting Mental Status: No Interim History: Pt reports awakening with mild fever, green nasal discharge, hx of sinus infection, mold allergy. Also reports heartburn. But, the voices are fading and these changes are working . Reports experiencing some relief from psychiatric symptoms. Denies SI,HI,AH,VH. Well engaged in discussion today. Medication Compliance: Yes Side effects from medications: No Attending Groups: Yes Review of Systems Acute medical concerns: No Medical Review of Systems: unchanged Review of Systems Review of Systems Heartburn Sx of possible sinus infection. Mental Status Exam Mental Status Exam Patient Appearance: Appropriate Patient Orientation: Person, Place, Time and Situation Level of Consciousness: Alert Patient Behavior: Talkative and Good Eye Contact Mood Description: Constricted and Apprehensive Affect Description: Apprehensive Patient Cognition Impaired: No Ability to Follow Directions: Good Speech Pattern: Spontaneous Speech Memory Description: Intact Hallucinations: Auditory and Visual Delusions: Present Thought Content: positive for Perseveration and positive for Suicidal Ideation (denies) Depressive Symptoms: Thoughts of /Suicide (denies) Judgement: Fair Diagnostics Vital Signs (24Hr): Vital Signs - 24 hr 12/27/24 20:00 12/27/24 20:32 12/28/24 08:00 Temperature 99.0 F 98.6 F Pulse Rate 119 H 105 H Respiratory Rate 16 Blood Pressure 112/66 112/66 112/98 H Pulse Oximetry 97 97 Oxygen Delivery Method Room Air Room Air BMI result Body Mass Index 38.9 Labs 12/24/24 09:40 Medications Medications Current Medications Al Hydroxide/Mg Hydroxide (Magnesium Hydrox/Alum Hydrox 30 Ml Oral.Susp) 30 ml PO Q6H PRN PRN Reason: Heartburn/Nausea Last Admin: 12/27/24 21:07 Dose: 30 ml Albuterol Sulfate (Albuterol Sulfate 90 Mcg 8 Gm Inhaler) 2 puff INHALE RQ6H PRN PRN Reason: Shortness of Breath Amphetamine/Dextroamphetamine (Amphetamine Mixed Salts 10 Mg Tablet) 10 mg PO BID@0800,1400 [facility] Last Admin: 12/28/24 14:57 Dose: 10 mg Cariprazine (Cariprazine Hcl 3 Mg Capsule) 3 mg PO DAILY [facility] Last Admin: 12/28/24 09:04 Dose: 3 mg Clonazepam (Clonazepam 1 Mg Tablet) 1 mg PO BID [facility] Last Admin: 12/28/24 09:04 Dose: 1 mg Clonazepam (Clonazepam 1 Mg Tablet) 1 mg PO DAILY PRN PRN Reason: anxiety Clonidine HCl (Clonidine Hcl 0.1 Mg Tablet) 0.1 mg PO TID PRN; Protocol PRN Reason: Anxiety Last Admin: 12/27/24 20:32 Dose: 0.1 mg Divalproex Sodium (Divalproex Sodium Er 500 Mg Tab.Er.24h) 500 mg PO BEDTIME [facility] Last Admin: 12/27/24 20:32 Dose: 500 mg Doxepin HCl 10 mg/ Doxepin HCl (25 mg) 35 mg PO BEDTIME [facility] Last Admin: 12/27/24 20:31 Dose: 35 mg Gabapentin (Gabapentin 400 Mg Capsule) 400 mg PO TID [facility] Last Admin: 12/28/24 14:57 Dose: 400 mg Haloperidol (Haloperidol 5 Mg Tablet) 5 mg PO DAILY PRN PRN Reason: voices Haloperidol (Haloperidol 5 Mg Tablet) 10 mg PO TID [facility] Last Admin: 12/28/24 14:57 Dose: 10 mg Hydroxyzine HCl (Hydroxyzine Hcl 25 Mg Tablet) 25 mg PO Q6H PRN PRN Reason: mild anxiety Last Admin: 12/28/24 01:23 Dose: 25 mg Hydroxyzine HCl (Hydroxyzine Hcl 50 Mg Tablet) 50 mg PO BID PRN PRN Reason: Insomnia Last Admin: 12/27/24 20:31 Dose: 50 mg Ibuprofen (Ibuprofen 400 Mg Tablet) 400 mg PO Q6H PRN PRN Reason: Pain, Moderate(Pain Scale 4-6) Last Admin: 12/25/24 20:54 Dose: 400 mg Lamotrigine (Lamotrigine 25 Mg Tablet) 25 mg PO BEDTIME [facility] Last Admin: 12/27/24 20:32 Dose: 25 mg Loratadine (Loratadine 10 Mg Tablet) 10 mg PO DAILY [facility] Last Admin: 12/28/24 09:04 Dose: 10 mg Magnesium Hydroxide (Milk Of Magnesia 30 Ml Oral.Susp) 30 ml PO DAILY PRN PRN Reason: Constipation Nicotine (Nicotine 21 Mg Patch.Td24) 21 mg TRANSDERMA DAILY PRN PRN Reason: smoking cessation Nicotine Polacrilex (Nicotine Polacrilex 2 Mg Gum) 4 mg BUCCAL Q2H PRN PRN Reason: Nicotine Cravings Nortriptyline HCl (Nortriptyline Hcl 25 Mg Capsule) 100 mg PO BEDTIME [facility] Last Admin: 12/27/24 20:31 Dose: 100 mg Olanzapine (Olanzapine 5 Mg Tablet) 5 mg PO TID PRN PRN Reason: agitation Omeprazole (Omeprazole 20 Mg Capsule.Dr) 20 mg PO BID@0630,1630 [facility] Last Admin: 12/28/24 17:27 Dose: 20 mg Perphenazine (Perphenazine 4 Mg Tablet) 18 mg PO BID [facility] Last Admin: 12/28/24 09:05 Dose: 18 mg Spironolactone (Spironolactone 25 Mg Tablet) 100 mg PO DAILY [facility]; Protocol Last Admin: 12/28/24 09:04 Dose: 100 mg Sumatriptan Succinate (Sumatriptan Succinate 100 Mg Tablet) 100 mg PO Q2H PRN PRN Reason: Migraine Headache Last Admin: 12/25/24 16:39 Dose: 100 mg Allergies Allergies Allergy/AdvReac Type Severity Reaction Status Date / Time acetaminophen Allergy Anaphylaxis Verified 12/23/24 16:42 avocado Allergy Unknown Verified 12/23/24 16:42 azithromycin Allergy Unknown Verified 12/23/24 16:42 banana Allergy Unknown Verified 12/23/24 16:42 citalopram (From Celexa) Allergy Unknown Verified 12/23/24 16:42 clindamycin Allergy Unknown Verified 12/23/24 16:42 latex Allergy Anaphylaxis Verified 12/23/24 16:42 metronidazole Allergy Anaphylaxis Verified 12/23/24 16:42 nickel Allergy Anaphylaxis Verified 12/23/24 16:42 Sulfa (Sulfonamide Allergy Swelling Verified 12/23/24 16:42 Antibiotics) sulfasalazine Allergy Anaphylaxis Verified 12/23/24 16:42 kiwi extract Allergy Unknown Uncoded 12/23/24 18:52 wild lettuce Allergy Unknown Uncoded 12/23/24 18:52 Assessment & Plan Assessment & Plan (1) Schizoaffective disorder, bipolar type: Status: Acute Code(s): F25.0 - Schizoaffective disorder, bipolar type (2) Cannabis use disorder: Status: Acute Code(s): F12.90 - Cannabis use, unspecified, uncomplicated Plan 39 yo female, prefers to be called [facility] , transfer from [facility], with an increase in auditory and visual perceptual alterations, CAH to self harm and current med regime that has been less effective. Describes loss of insurance and provider groups in Nov 2024. She received new insurance in December 2024 and now has to find a new provider group-she is hoping to enroll in [facility]. Previous provider gave her enough medications to cover, however pt reports needing ongoing adjustments which were not happening. Pt repors anergy, amotivation, and being overwhelmed with voices, one who tells her to suicide all of the time. She hopes this admission will help make the extra voices go away . Pt also reports feeling extreme exhaustion since being changed from Lamictal to Depakote earlier this year. Plan: Admit, CV, 15 minute checks Med review- Increase Haldol to 5 mg qid and 1 mg qd prn voices. Pt reports she does better on first generation drugs. Decrease Depakote to 500 mg HS Pamelor level Encourage full milieu involvement Collateral contacts Diagnostics as needed. 12/25: continue current management and treatment plan. 12/26: continue current management and treatment plan. 12/28: continue tx changes Prilosec 20 mg bid Pseudoephedrine prn for sinus sx. Pt reports she may have a sinus infection, however, declines diagnostics at this time. Reason for continued inpatient stay Substantial Risk for: rapid decompensation and med/psych decompensation Time Spent With Patient Time: Total time managing care of this patient today ____ minutes.
[2024-12-28 20:00] VITALS: BP 136/76; PULSE 111; RESP 16; TEMP 36.4; O2SAT 97
[2024-12-28] MEDS: DOXEPIN HCL 35 MG PO (20:41)
[2024-12-28] MEDS: Magnesium Hydrox/Alum Hydrox 30 ML ORAL.SUSP PO (20:57)
[2024-12-29 07:56] VITALS: BP 122/77; PULSE 111; RESP 18; TEMP 37.1; O2SAT 96
[2024-12-29] MEDS: Amphetamine Mixed Salts 10 MG TABLET PO ×2 (08:16→14:05)
--- NOTE | 2024-12-29 09:17 | HO.PSYCHPN ---
Subjective Subjective Date of Service: 12/29/24 Reason For Visit: F29 Subjective Notes: Conditional Voluntary Healthcare Proxy: No Guardianship: No Medical Problems Affecting Mental Status: No Interim History: Pt reports AH are absent, except for my one base voice which I can manage. The visual hallucinations are decreasing, I want the Trilafon to go to 20 mg BID so they will be all gone too, OK? Pt reports feeling improved. Preparing for discharge 12/31. Denies SI,HI,AH, VH are decreasing. I am good . Denies sx sinus infection, declined need for antibiotic. Medication Compliance: Yes Side effects from medications: No Attending Groups: Yes Review of Systems Acute medical concerns: No Medical Review of Systems: unchanged Review of Systems Review of Systems Reports sinus sx are resolving. Mental Status Exam Mental Status Exam Patient Appearance: Appropriate Patient Orientation: Person, Place, Time and Situation Level of Consciousness: Alert Patient Behavior: Talkative and Good Eye Contact Mood Description: Constricted and Apprehensive Affect Description: Apprehensive Patient Cognition Impaired: No Ability to Follow Directions: Good Speech Pattern: Spontaneous Speech Memory Description: Intact Hallucinations: Visual Delusions: Not Present Thought Process: Goal Oriented Thought Content: positive for Goal Oriented and positive for Suicidal Ideation (denies) Depressive Symptoms: Thoughts of /Suicide (denies) Judgement: Good Diagnostics Vital Signs (24Hr): Vital Signs - 24 hr 12/28/24 20:00 12/29/24 07:56 Temperature 97.5 F 98.7 F Pulse Rate 111 H 111 H Respiratory Rate 16 18 Blood Pressure 136/76 122/77 Pulse Oximetry 97 96 Oxygen Delivery Method Room Air Room Air BMI result Body Mass Index 38.9 Labs 12/24/24 09:40 Medications Medications Current Medications Al Hydroxide/Mg Hydroxide (Magnesium Hydrox/Alum Hydrox 30 Ml Oral.Susp) 30 ml PO Q6H PRN PRN Reason: Heartburn/Nausea Last Admin: 12/28/24 20:57 Dose: 30 ml Albuterol Sulfate (Albuterol Sulfate 90 Mcg 8 Gm Inhaler) 2 puff INHALE RQ6H PRN PRN Reason: Shortness of Breath Amphetamine/Dextroamphetamine (Amphetamine Mixed Salts 10 Mg Tablet) 10 mg PO BID@0800,1400 [facility] Last Admin: 12/29/24 08:16 Dose: 10 mg Cariprazine (Cariprazine Hcl 3 Mg Capsule) 3 mg PO DAILY [facility] Last Admin: 12/29/24 08:16 Dose: 3 mg Clonazepam (Clonazepam 1 Mg Tablet) 1 mg PO BID [facility] Last Admin: 12/29/24 08:16 Dose: 1 mg Clonazepam (Clonazepam 1 Mg Tablet) 1 mg PO DAILY PRN PRN Reason: anxiety Clonidine HCl (Clonidine Hcl 0.1 Mg Tablet) 0.1 mg PO TID PRN; Protocol PRN Reason: Anxiety Last Admin: 12/28/24 20:56 Dose: 0.1 mg Divalproex Sodium (Divalproex Sodium Er 500 Mg Tab.Er.24h) 500 mg PO BEDTIME [facility] Last Admin: 12/28/24 20:40 Dose: 500 mg Doxepin HCl 10 mg/ Doxepin HCl (25 mg) 35 mg PO BEDTIME [facility] Last Admin: 12/28/24 20:41 Dose: 35 mg Gabapentin (Gabapentin 400 Mg Capsule) 400 mg PO TID [facility] Last Admin: 12/29/24 08:16 Dose: 400 mg Haloperidol (Haloperidol 5 Mg Tablet) 5 mg PO DAILY PRN PRN Reason: voices Haloperidol (Haloperidol 5 Mg Tablet) 10 mg PO TID [facility] Last Admin: 12/29/24 08:16 Dose: 10 mg Hydroxyzine HCl (Hydroxyzine Hcl 25 Mg Tablet) 25 mg PO Q6H PRN PRN Reason: mild anxiety Last Admin: 12/28/24 01:23 Dose: 25 mg Hydroxyzine HCl (Hydroxyzine Hcl 50 Mg Tablet) 50 mg PO BID PRN PRN Reason: Insomnia Last Admin: 12/28/24 20:56 Dose: 50 mg Ibuprofen (Ibuprofen 400 Mg Tablet) 400 mg PO Q6H PRN PRN Reason: Pain, Moderate(Pain Scale 4-6) Last Admin: 12/28/24 18:29 Dose: 400 mg Lamotrigine (Lamotrigine 25 Mg Tablet) 25 mg PO BEDTIME [facility] Last Admin: 12/28/24 20:42 Dose: 25 mg Loratadine (Loratadine 10 Mg Tablet) 10 mg PO DAILY [facility] Last Admin: 12/29/24 08:16 Dose: 10 mg Magnesium Hydroxide (Milk Of Magnesia 30 Ml Oral.Susp) 30 ml PO DAILY PRN PRN Reason: Constipation Nicotine (Nicotine 21 Mg Patch.Td24) 21 mg TRANSDERMA DAILY PRN PRN Reason: smoking cessation Nicotine Polacrilex (Nicotine Polacrilex 2 Mg Gum) 4 mg BUCCAL Q2H PRN PRN Reason: Nicotine Cravings Nortriptyline HCl (Nortriptyline Hcl 25 Mg Capsule) 100 mg PO BEDTIME [facility] Last Admin: 12/28/24 20:38 Dose: 100 mg Olanzapine (Olanzapine 5 Mg Tablet) 5 mg PO TID PRN PRN Reason: agitation Omeprazole (Omeprazole 20 Mg Capsule.Dr) 20 mg PO BID@0630,1630 [facility] Last Admin: 12/29/24 06:22 Dose: 20 mg Perphenazine (Perphenazine 4 Mg Tablet) 18 mg PO BID [facility] Last Admin: 12/29/24 08:16 Dose: 18 mg Pseudoephedrine HCl (Pseudoephedrine Hcl 30 Mg Tablet) 30 mg PO Q6H PRN PRN Reason: Congestion Spironolactone (Spironolactone 25 Mg Tablet) 100 mg PO DAILY [facility]; Protocol Last Admin: 12/29/24 08:15 Dose: 100 mg Sumatriptan Succinate (Sumatriptan Succinate 100 Mg Tablet) 100 mg PO Q2H PRN PRN Reason: Migraine Headache Last Admin: 12/25/24 16:39 Dose: 100 mg Allergies Allergies Allergy/AdvReac Type Severity Reaction Status Date / Time acetaminophen Allergy Anaphylaxis Verified 12/23/24 16:42 avocado Allergy Unknown Verified 12/23/24 16:42 azithromycin Allergy Unknown Verified 12/23/24 16:42 banana Allergy Unknown Verified 12/23/24 16:42 citalopram (From Celexa) Allergy Unknown Verified 12/23/24 16:42 clindamycin Allergy Unknown Verified 12/23/24 16:42 latex Allergy Anaphylaxis Verified 12/23/24 16:42 metronidazole Allergy Anaphylaxis Verified 12/23/24 16:42 nickel Allergy Anaphylaxis Verified 12/23/24 16:42 Sulfa (Sulfonamide Allergy Swelling Verified 12/23/24 16:42 Antibiotics) sulfasalazine Allergy Anaphylaxis Verified 12/23/24 16:42 kiwi extract Allergy Unknown Uncoded 12/23/24 18:52 wild lettuce Allergy Unknown Uncoded 12/23/24 18:52 Assessment & Plan Assessment & Plan (1) Schizoaffective disorder, bipolar type: Status: Acute Code(s): F25.0 - Schizoaffective disorder, bipolar type (2) Cannabis use disorder: Status: Acute Code(s): F12.90 - Cannabis use, unspecified, uncomplicated Plan 39 yo female, prefers to be called [facility] , transfer from [facility], with an increase in auditory and visual perceptual alterations, CAH to self harm and current med regime that has been less effective. Describes loss of insurance and provider groups in Nov 2024. She received new insurance in December 2024 and now has to find a new provider group-she is hoping to enroll in [facility]. Previous provider gave her enough medications to cover, however pt reports needing ongoing adjustments which were not happening. Pt repors anergy, amotivation, and being overwhelmed with voices, one who tells her to suicide all of the time. She hopes this admission will help make the extra voices go away . Pt also reports feeling extreme exhaustion since being changed from Lamictal to Depakote earlier this year. Plan: Admit, CV, 15 minute checks Med review- Increase Haldol to 5 mg qid and 1 mg qd prn voices. Pt reports she does better on first generation drugs. Decrease Depakote to 500 mg HS Pamelor level Encourage full milieu involvement Collateral contacts Diagnostics as needed. 12/25: continue current management and treatment plan. 12/26: continue current management and treatment plan. 12/28: continue tx changes Prilosec 20 mg bid Pseudoephedrine prn for sinus sx. Pt reports she may have a sinus infection, however, declines diagnostics at this time. 12/29: Increase Perphenazine to 20 mg bid. Reason for continued inpatient stay Substantial Risk for: rapid decompensation Time Spent With Patient Time: Total time managing care of this patient today ____ minutes.
[2024-12-29 20:00] VITALS: BP 131/63; PULSE 100; RESP 16; TEMP 37.2; O2SAT 96
[2024-12-29] MEDS: DOXEPIN HCL 35 MG PO (21:08)
[2024-12-30 07:00] VITALS: BMI 39.9
[2024-12-30 08:00] VITALS: BP 133/86; PULSE 111; TEMP 37.2; O2SAT 99
[2024-12-30] MEDS: Amphetamine Mixed Salts 10 MG TABLET PO ×2 (08:55→14:37)
--- NOTE | 2024-12-30 16:06 | P.PNPSI_ITS ---
Subjective Subjective Date of Service: 12/30/24 Reason For Visit: F29 Subjective Notes: Conditional Voluntary Healthcare Proxy: No Guardianship: No Medical Problems Affecting Mental Status: No Interim History: Pt reports doing well. We will make no further changes at this time. She will begin PHP on 01/03. Denies SI,HI, decrease in VH. Denies AH. Plans DC for 12/31 and is feeling prepared to leave. Medication Compliance: Yes Side effects from medications: No Attending Groups: Yes Review of Systems Acute medical concerns: No Medical Review of Systems: unchanged Review of Systems Review of Systems Denies sinus sx. Mental Status Exam Mental Status Exam Patient Appearance: Appropriate Patient Orientation: Person, Place, Time and Situation Level of Consciousness: Alert Patient Behavior: Talkative and Good Eye Contact Mood Description: Constricted and Apprehensive Affect Description: Apprehensive Patient Cognition Impaired: No Ability to Follow Directions: Good Speech Pattern: Spontaneous Speech Memory Description: Intact Hallucinations: Visual Delusions: Not Present Thought Process: Goal Oriented Thought Content: positive for Goal Oriented and positive for Suicidal Ideation (denies) Depressive Symptoms: Thoughts of /Suicide (denies) Judgement: Good Diagnostics Vital Signs (24Hr): Vital Signs - 24 hr 12/29/24 20:00 12/30/24 08:00 Temperature 99 F 99 F Pulse Rate 100 111 H Respiratory Rate 16 Blood Pressure 131/63 133/86 Pulse Oximetry 96 99 Oxygen Delivery Method Room Air Room Air BMI result Body Mass Index 39.9 Labs 12/24/24 09:40 Labs: Laboratory Results - last 48 hr 12/25/24 09:00 Nortriptyline 244 H Medications Medications Current Medications Al Hydroxide/Mg Hydroxide (Magnesium Hydrox/Alum Hydrox 30 Ml Oral.Susp) 30 ml PO Q6H PRN PRN Reason: Heartburn/Nausea Last Admin: 12/28/24 20:57 Dose: 30 ml Albuterol Sulfate (Albuterol Sulfate 90 Mcg 8 Gm Inhaler) 2 puff INHALE RQ6H PRN PRN Reason: Shortness of Breath Amphetamine/Dextroamphetamine (Amphetamine Mixed Salts 10 Mg Tablet) 10 mg PO BID@0800,1400 [facility] Last Admin: 12/30/24 14:37 Dose: 10 mg Cariprazine (Cariprazine Hcl 3 Mg Capsule) 3 mg PO DAILY [facility] Last Admin: 12/30/24 08:55 Dose: 3 mg Clonazepam (Clonazepam 1 Mg Tablet) 1 mg PO BID [facility] Last Admin: 12/30/24 08:55 Dose: 1 mg Clonazepam (Clonazepam 1 Mg Tablet) 1 mg PO DAILY PRN PRN Reason: anxiety Clonidine HCl (Clonidine Hcl 0.1 Mg Tablet) 0.1 mg PO TID PRN; Protocol PRN Reason: Anxiety Last Admin: 12/29/24 21:07 Dose: 0.1 mg Divalproex Sodium (Divalproex Sodium Er 500 Mg Tab.Er.24h) 500 mg PO BEDTIME [facility] Last Admin: 12/29/24 21:09 Dose: 500 mg Doxepin HCl 10 mg/ Doxepin HCl (25 mg) 35 mg PO BEDTIME [facility] Last Admin: 12/29/24 21:08 Dose: 35 mg Gabapentin (Gabapentin 400 Mg Capsule) 400 mg PO TID [facility] Last Admin: 12/30/24 14:36 Dose: 400 mg Haloperidol (Haloperidol 5 Mg Tablet) 5 mg PO DAILY PRN PRN Reason: voices Haloperidol (Haloperidol 5 Mg Tablet) 10 mg PO TID [facility] Last Admin: 12/30/24 14:37 Dose: 10 mg Hydroxyzine HCl (Hydroxyzine Hcl 25 Mg Tablet) 25 mg PO Q6H PRN PRN Reason: mild anxiety Last Admin: 12/28/24 01:23 Dose: 25 mg Hydroxyzine HCl (Hydroxyzine Hcl 50 Mg Tablet) 50 mg PO BID PRN PRN Reason: Insomnia Last Admin: 12/30/24 01:25 Dose: 50 mg Ibuprofen (Ibuprofen 400 Mg Tablet) 400 mg PO Q6H PRN PRN Reason: Pain, Moderate(Pain Scale 4-6) Last Admin: 12/29/24 21:07 Dose: 400 mg Lamotrigine (Lamotrigine 25 Mg Tablet) 25 mg PO BEDTIME [facility] Last Admin: 12/29/24 21:09 Dose: 25 mg Loratadine (Loratadine 10 Mg Tablet) 10 mg PO DAILY [facility] Last Admin: 12/30/24 08:55 Dose: 10 mg Magnesium Hydroxide (Milk Of Magnesia 30 Ml Oral.Susp) 30 ml PO DAILY PRN PRN Reason: Constipation Nicotine (Nicotine 21 Mg Patch.Td24) 21 mg TRANSDERMA DAILY PRN PRN Reason: smoking cessation Nicotine Polacrilex (Nicotine Polacrilex 2 Mg Gum) 4 mg BUCCAL Q2H PRN PRN Reason: Nicotine Cravings Nortriptyline HCl (Nortriptyline Hcl 25 Mg Capsule) 100 mg PO BEDTIME [facility] Last Admin: 12/29/24 21:10 Dose: 100 mg Olanzapine (Olanzapine 5 Mg Tablet) 5 mg PO TID PRN PRN Reason: agitation Omeprazole (Omeprazole 20 Mg Capsule.Dr) 20 mg PO BID@0630,1630 [facility] Last Admin: 12/30/24 06:45 Dose: 20 mg Perphenazine (Perphenazine 4 Mg Tablet) 20 mg PO BID [facility] Last Admin: 12/30/24 08:55 Dose: 20 mg Pseudoephedrine HCl (Pseudoephedrine Hcl 30 Mg Tablet) 30 mg PO Q6H PRN PRN Reason: Congestion Last Admin: 12/30/24 09:07 Dose: 30 mg Spironolactone (Spironolactone 25 Mg Tablet) 100 mg PO DAILY [facility]; Protocol Last Admin: 12/30/24 09:06 Dose: 100 mg Sumatriptan Succinate (Sumatriptan Succinate 100 Mg Tablet) 100 mg PO Q2H PRN PRN Reason: Migraine Headache Last Admin: 12/25/24 16:39 Dose: 100 mg Allergies Allergies Allergy/AdvReac Type Severity Reaction Status Date / Time acetaminophen Allergy Anaphylaxis Verified 12/23/24 16:42 avocado Allergy Unknown Verified 12/23/24 16:42 azithromycin Allergy Unknown Verified 12/23/24 16:42 banana Allergy Unknown Verified 12/23/24 16:42 citalopram (From Celexa) Allergy Unknown Verified 12/23/24 16:42 clindamycin Allergy Unknown Verified 12/23/24 16:42 latex Allergy Anaphylaxis Verified 12/23/24 16:42 metronidazole Allergy Anaphylaxis Verified 12/23/24 16:42 nickel Allergy Anaphylaxis Verified 12/23/24 16:42 Sulfa (Sulfonamide Allergy Swelling Verified 12/23/24 16:42 Antibiotics) sulfasalazine Allergy Anaphylaxis Verified 12/23/24 16:42 kiwi extract Allergy Unknown Uncoded 12/23/24 18:52 wild lettuce Allergy Unknown Uncoded 12/23/24 18:52 Assessment & Plan Assessment & Plan (1) Schizoaffective disorder, bipolar type: Status: Acute Code(s): F25.0 - Schizoaffective disorder, bipolar type (2) Cannabis use disorder: Status: Acute Code(s): F12.90 - Cannabis use, unspecified, uncomplicated Plan 39 yo female, prefers to be called [facility] , transfer from [facility], with an increase in auditory and visual perceptual alterations, CAH to self harm and current med regime that has been less effective. Describes loss of insurance and provider groups in Nov 2024. She received new insurance in December 2024 and now has to find a new provider group-she is hoping to enroll in [facility]. Previous provider gave her enough medications to cover, however pt reports needing ongoing adjustments which were not happening. Pt repors anergy, amotivation, and being overwhelmed with voices, one who tells her to suicide all of the time. She hopes this admission will help make the extra voices go away . Pt also reports feeling extreme exhaustion since being changed from Lamictal to Depakote earlier this year. Plan: Admit, CV, 15 minute checks Med review- Increase Haldol to 5 mg qid and 1 mg qd prn voices. Pt reports she does better on first generation drugs. Decrease Depakote to 500 mg HS Pamelor level Encourage full milieu involvement Collateral contacts Diagnostics as needed. 12/25: continue current management and treatment plan. 12/26: continue current management and treatment plan. 12/28: continue tx changes Prilosec 20 mg bid Pseudoephedrine prn for sinus sx. Pt reports she may have a sinus infection, however, declines diagnostics at this time. 12/29: Increase Perphenazine to 20 mg bid. 12/30: Continue tx. DC 12/31. Reason for continued inpatient stay Substantial Risk for: stable for discharge Time Spent With Patient Time: Total time managing care of this patient today ____ minutes.
[2024-12-30 20:00] VITALS: BP 124/65; PULSE 100; RESP 16; TEMP 36.5; O2SAT 97
[2024-12-30] MEDS: DOXEPIN HCL 35 MG PO (20:54)
--- NOTE | 2024-12-31 | ECG_ITS ---
Test Reason : rule out QTc prolongation Blood Pressure : */* mmHG Vent. Rate : 98 BPM Atrial Rate : 98 BPM P-R Int : 166 ms QRS Dur : 86 ms QT Int : 344 ms P-R-T Axes : 9 28 20 degrees QTcB Int : 439 ms Normal sinus rhythm Normal ECG No previous ECGs available Referred By: Riddhi Esqueda Electronically Signed By: MUSTAPHA HERNANDEZ MD
[2024-12-31 08:00] VITALS: BP 117/76; PULSE 104; TEMP 35.8; O2SAT 97
[2024-12-31] MEDS: Amphetamine Mixed Salts 10 MG TABLET PO (09:11)
--- NOTE | 2024-12-31 12:42 | PM.PSYDC ---
DS: Providers Provider Date of Service: 12/31/24 Date of admission: 12/23/24 14:41 Date of discharge: 12/31/24 Primary care physician: Unknown Physician Admitting clinician: Riddhi Esqueda Attending physician on admission: Everette Null Consults: 12/23/24 17:26 Consult to Hospitalist Routine Comment: Consulting Provider[place] [facility] Reason For Exam: admission physical Attending physician on discharge: Everette Null Discharging clinician: Riddhi Esqueda DS: Diagnosis Discharge Diagnosis (1) Schizoaffective disorder, bipolar type: Status: Acute (2) Cannabis use disorder: Status: Acute DS: Medications Discharge Medications Home Medications: Home Medications ?Medication ?Instructions ?Recorded ?Confirmed Ajovy Syringe 12/23/24 levocetirizine 5 mg tablet (Xyzal) 5 mg PO DAILY 12/23/24 12/23/24 sumatriptan succinate 100 mg 100 mg PO Q2-4H PRN Allergic 12/23/24 12/23/24 tablet (Imitrex) Symptoms Previous Rx's ?Medication ?Instructions ?Recorded Depakote ER 500 mg PO BEDTIME #30 tabs 12/30/24 cariprazine 3 mg capsule (Vraylar) 3 mg PO DAILY #3 caps 12/30/24 clonazepam 1 mg PO BID #60 tabs 12/30/24 clonazepam 1 mg tablet 1 mg PO BID #60 tabs 12/30/24 clonidine HCl 0.1 mg tablet 0.1 mg PO TID PRN Anxiety #90 tabs 12/30/24 dextroamphetamine-amphetamine 10 10 mg PO BID@0800,1400 #60 tabs 12/30/24 mg tablet divalproex 500 mg tablet,extended 500 mg PO DAILY #30 tabs 12/30/24 release 24 hr (Depakote ER) gabapentin 400 mg capsule 400 mg PO TID #90 caps 12/30/24 haloperidol 5 mg tablet 10 mg (2 x 5 mg) PO TID #90 tabs 12/30/24 hydroxyzine pamoate 50 mg capsule 50 mg PO BID PRN insomnia #60 caps 12/30/24 ibuprofen 400 mg tablet 400 mg PO Q6H PRN Pain, 12/30/24 Moderate(Pain Scale 4-6) #0 tabs lamotrigine 25 mg tablet 25 mg PO BEDTIME #30 tabs 12/30/24 nortriptyline 50 mg capsule 100 mg (2 x 50 mg) PO BEDTIME #30 12/30/24 caps omeprazole 20 mg capsule,delayed 20 mg PO BID@0630,1630 #60 caps 12/30/24 release perphenazine 16 mg tablet 16 mg PO BID #60 tabs 12/30/24 spironolactone 100 mg tablet 100 mg PO DAILY #30 tabs 12/30/24 doxepin 10 mg capsule 30 mg (3 x 10 mg) PO BEDTIME #90 12/31/24 caps Mental Status Exam Mental Status Exam Patient Appearance: Appropriate Patient Orientation: Person, Place, Time and Situation Level of Consciousness: Alert Patient Behavior: Talkative and Good Eye Contact Mood Description: Constricted and Apprehensive Affect Description: Apprehensive Patient Cognition Impaired: No Ability to Follow Directions: Good Speech Pattern: Spontaneous Speech Memory Description: Intact Hallucinations: Visual Delusions: Not Present Thought Process: Goal Oriented Thought Content: positive for Goal Oriented and positive for Suicidal Ideation (denies) Depressive Symptoms: Thoughts of /Suicide (denies) Judgement: Good Data Data Completed and Pending Completed studies during hospitalization [Text1]: 12/24/24 12/25/24 09:40 09:00 TSH 1.43 Nortriptyline 244 H DS: Summary Hospital Course Hospital Course: Admission to adult psychiatry for exacerbation of schizoaffective disorder, bipolar type and cannabis use disorder. Pt accepted in transfer from [facility]. She reports an increase in CAH telling her to suicide, AH, VH. She reports loss of insurance and providers causing her to feel abandoned in her care with increase in depressive sx, anergy, amotivation. Medications were evaluated and changes were made. Pt was offered full milieu to help her to strengthen coping skills. Visual hallucinations were resolved. Auditory hallucinations were decreased. Pt will continue to monitor nortriptyline level upon discharge which was high on 12/25. Pt reported overall relief of sx. Team was able to assist pt in securing stable out pt resources and she will return to her home with her mother. Status at Discharge Functional status at discharge: independent ambulation Overall status at discharge: patient is progressing back to baseline Time Spent with Patient Time attestation: Total time managing care of this patient today ____ minutes. Time spent: Less than 30 minutes Discharge Plan Discharge Anticipated Discharge Date/Time: 12/31/24 11:00 Patient Disposition: Home, Self-Care Discharge Diagnosis: Schizoaffective Disorder, bipolar type Cannabis use disorder Referrals: [facility] [Other] - 01/03/25 8:30 am Referral Note: *Follow-up intake appointment with [facility] LIZ Arias [Other] - 1 Week Referral Note: *Follow-up medication management appointment. Anamaria Lara [Other] - 1 Week Referral Note: Follow-up appointment with your therapist. [facility] [Other] - 1 Week Referral Note: You are encouraged to resume monthly meetings with you casework specialist, Delisa, from [facility] in order to reassess your needs. Physician,Zaid J [Primary Care Provider, Medical] - 1 Week Referral Note: Pt to follow up after discharge. Discharge Medications: New haloperidol 5 mg Tablet 10 mg PO TID Qty: 90 0RF dextroamphetamine-amphetamine 10 mg Tablet 10 mg PO BID@0800,1400 Qty: 60 0RF Rx Instructions: Partial Fill upon patient request. lamotrigine 25 mg Tablet 25 mg PO BEDTIME Qty: 30 0RF ibuprofen 400 mg Tablet 400 mg PO Q6H PRN (Reason: Pain, Moderate(Pain Scale 4-6)) Qty: 0 0RF omeprazole 20 mg Capsule,Delayed Release(Dr/Ec) 20 mg PO BID@0630,1630 Qty: 60 0RF clonazepam 1 mg Tablet 1 mg PO BID Qty: 60 0RF divalproex [Depakote ER] 500 mg tablet extended release 24 hr 500 mg PO DAILY Qty: 30 0RF doxepin 10 mg capsule 30 mg PO BEDTIME Qty: 90 0RF Continued Ajovy Syringe pen injector Patient Comments: last fill 07/2024 sumatriptan succinate [Imitrex] 100 mg Tablet 100 mg PO Q2-4H PRN (Reason: Allergic Symptoms) Rx Instructions: do not exceed 2 doses per 24 hrs levocetirizine [Xyzal] 5 mg Tablet 5 mg PO DAILY clonidine HCl 0.1 mg tablet 0.1 mg PO TID PRN (Reason: Anxiety) Qty: 90 0RF spironolactone 100 mg tablet 100 mg PO DAILY Qty: 30 0RF gabapentin 400 mg Capsule 400 mg PO TID Qty: 90 0RF hydroxyzine pamoate 50 mg capsule 50 mg PO BID PRN (Reason: insomnia) Qty: 60 0RF nortriptyline 50 mg Capsule 100 mg PO BEDTIME Qty: 30 0RF perphenazine 16 mg tablet 16 mg PO BID Qty: 60 0RF Vraylar 3 mg capsule 3 mg PO DAILY Qty: 3 0RF Depakote ER 500 mg PO BEDTIME Qty: 30 0RF Rx Instructions: take with 250mg tablet clonazepam 1 mg PO BID Qty: 60 0RF Rx Instructions: may repeat at bedtime for a total of 3 doses Discontinued doxepin 25 mg capsule 25 mg PO BEDTIME Adderall 10 mg PO BID Rx Instructions: at 0900 and noon haloperidol [Haldol] 5 mg Tablet 5 mg PO TID Depakote ER 250 mg PO BEDTIME Rx Instructions: take with 500mg ER Discharge Orders: Discharge Order (Routine); Ordered 12/31/24 Ordered By: Riddhi Esqueda Diet: Advance to usual diet Activity on Discharge: As tolerated Stand Alone Forms: Patient Portal Discharge page, Community Support Print Language: Croatian Care Plan Goals: Mood and Behavioral Stabilization Abstinence from Substances Health Concerns: Mood and Behavioral Stabilization Abstinence from Substances Plan of Treatment: Attend partial hospital program beginning on 01/03/25 Take medications as directed Call/Return as needed Assessment: Denies SI,HI,AH. VH have diminished. Pt feels prepared for discharge and agrees with plan of care. Discharge Date/Time: 12/31/24 11:27
== END 2024-12-31 11:27 | disposition home or self-care (01) | DRG 885 ==
PROVIDERS: Clinical Nurse Specialist Psychiatric/Mental Health, Adult; Admitting Provider Psychiatry & Neurology Psychiatry; Visit Provider Psychiatry & Neurology Psychiatry
DX: F25.0 Schizoaffective disorder, bipolar type (principal); F12.90 Cannabis use, unspecified, uncomplicated; Z87.891 Personal history of nicotine dependence; Z79.899 Other long term (current) drug therapy
CPT/HCPCS: 36415; 80053; 80061; 80335; 83036; 84443; 93005

== ENCOUNTER → 2024-12-23 14:41 | Outpatient (BNV) | payer SELFPAY | PROVIDERS: Admitting Provider Psychiatry & Neurology Psychiatry; Visit Provider Nurse Practitioner Family | DX: K58.9 Irritable bowel syndrome, unspecified (principal) | CPT/HCPCS: 99221 ==

== ENCOUNTER → 2024-12-23 14:41 | Outpatient (BNV) | payer SELFPAY | PROVIDERS: Admitting Provider Psychiatry & Neurology Psychiatry; Visit Provider Psychiatry & Neurology Psychiatry | DX: F25.0 Schizoaffective disorder, bipolar type (principal); F12.90 Cannabis use, unspecified, uncomplicated | CPT/HCPCS: 90792; 99232 ==